=== PATIENT | female | born 1960 | race Caucasian/White ===

== ENCOUNTER 2022-04-23 12:37 | Outpatient (REF) | payer OTHER, SELFPAY ==
[2022-04-27 06:12] LABS: HPV mRNA E6/E7 rflx Not Detected (Not Detected)
== END 2022-04-23 12:38 | disposition home or self-care (01) ==
LOC: HO.LAB 12:37
PROVIDERS: Visit Provider Obstetrics & Gynecology
DX: Z01.419 Encounter for gynecological examination (general) (routine) without abnormal findings (principal); Z11.51 Encounter for screening for human papillomavirus (HPV)
CPT/HCPCS: 87624; 88142

== ENCOUNTER 2023-08-05 11:10 | Outpatient (AMB) | payer OTHER, SELFPAY ==
--- NOTE | 2023-08-05 11:26 | A.OFFVIS_ITS ---
Intake Vital Signs 08/05/23 11:33 Height 5 ft 2 in Weight 270 lb BMI 49.4 BP 130/70 Intake Visit Reasons: Annual/DO NOT RS Commissioned Sales Associate Required: Yes Commissioned Sales Associate Language: [place] Installer Name: Nadya BARCLAY Information Interpreted: non-clinical & clinical Belt Sewer: Belt Sewer Present (Nadya BARCLAY) Accompanied by: Self / Same As Patient Allergies lisinopril Allergy (Unknown, Verified 08/05/23 11:35) Unknown Penicillins [PENICILLINS] Allergy (Unknown, Verified 08/05/23 11:35) RASH,HIVES Penicillin Allergy (Unknown, Uncoded 08/05/23 11:35) Unknown Pt states no food allergies Allergy (Unknown, Uncoded 08/05/23 11:35) Unknown Post menopausal: Yes HPI HPI Comments History of Present Illness Details Presenting for annual exam. No complaints. Last Pap/HPV was negative in 04/29 Last Mammogram was in 05/31 at [place] according to the patient and was negative No previous screening Colonoscopy done [facility] [place] Medical History Tachyarrhythmia Hyperthyroidism Hypercholesteremia Hypertension Diabetes Surgical History Hx of foot surgery Hx of cholecystectomy Family History Father Diabetes Mother Diabetes HTN (hypertension) Household Members: None Housing: Apartment Alcohol intake: never Patient Tobacco Use Status: Never used Tobacco Current occupational status: disabled Sexually active: No Sexual orientation: Straight/Heterosexual Gender identity: Female Female Reproductive History Menstrual Age of Menarche: 12 Menopause type: natural Total pregnancies: 2 Full term: 2 Number of Living Children: 2 Date of last pap smear: 04/24/22 Review of Systems Const All systems reviewed & are unremarkable except as noted in HPI and below Card Reports as per HPI Resp Reports as per HPI GI Reports as per HPI and Reports no additional complaints Reports as per HPI Physical Exam Vital Signs: Last Vital Signs BP 130/70 08/05/23 11:33 BMI result Body Mass Index 49.4 Const General: cooperative, healthy appearing and comfortable Chest Chest palpation & inspection: normal inspection of the chest and normal palpation of entire chest wall Breast/axilla inspection: normal inspection of the breasts and normal inspection of the axillae Breast/axilla palpation: normal palpation of the breasts, normal palpation of the axillae and no axillary lymphadenopathy Resp Effort & Inspection: normal respiratory effort Auscultation: clear to auscultation bilaterally Percussion: percussion normal Cardio Palpation: normal PMI Rate: regular rate Rhythm: regular rhythm Heart sounds: no murmurs and no rubs Peripheral pulses: Peripheral pulses 2+ throughout GI Inspection: Yes normal to inspection Palpation (GI): Soft to palpation, nontender, no guarding, not rigid and No hepatosplenomegaly present Percussion: Yes normal to percussion Auscultation: normal bowel sounds Rectal Exam - Female: deferred General: Yes bladder normal to palpation External Female Exam: No lesion Speculum Exam - Vagina: normal appearance of the vagina, normal palpation, normal vaginal discharge and not erythematous Speculum Exam - Cervix: normal appearance of the cervix and normal palpation Bimanual exam- vagina & uterus: normal bimanual exam, normal palpation, uterine size normal, bladder normal to palpation, consistency normal and normal palpation Bimanual Exam- Adnexa, other: normal adnexae, no masses and no tenderness Assessment & Plan Assessment & Plan (1) Well woman exam: Code(s): Z01.419 - Encounter for gynecological examination (general) (routine) without abnormal findings Plan: Co testing not indicated this year. Counseled the patient about the recommended dietary allowance of 1200 mg of Calcium & 600 IU of vitamin D. Instructions given the patient to schedule next screening Mammogram in 06/01. The patient was referred to GI for screening colonoscopy . The patient was instructed to perform monthly self-breast exams and schedule annual exam in a year. All questions answered and the patient verbalized understanding. Orders: Referrals Gastroenterology Referral Z12.11 - Encounter for screening for malignant neoplasm of colon Coding Level of Care Code Est Pt Prev Care 40-64y(78509) Diagnoses Well woman exam Z01.419
[2023-08-05 11:33] VITALS: BP 130/70; BMI 49.4
== END 2023-08-05 12:16 | disposition home or self-care (01) ==
PROVIDERS: PCP Internal Medicine; Visit Provider Obstetrics & Gynecology
DX: Z01.419 Encounter for gynecological examination (general) (routine) without abnormal findings (principal)
CPT/HCPCS: 99396

== ENCOUNTER → 2023-08-05 11:10 | Outpatient (BNVA) | payer OTHER, SELFPAY | PROVIDERS: Visit Provider Obstetrics & Gynecology ==

== ENCOUNTER 2024-05-30 21:15 | Emergency (ER) | payer OTHER, SELFPAY ==
--- NOTE | 2024-05-30 | ECG_ITS ---
Test Reason : SOB Blood Pressure : / mmHG Vent. Rate : 097 BPM Atrial Rate : 097 BPM P-R Int : 150 ms QRS Dur : 094 ms QT Int : 350 ms P-R-T Axes : 045 -35 080 degrees QTc Int : 444 ms Normal sinus rhythm Left axis deviation Moderate voltage criteria for LVH, may be normal variant ( R in aVL , [place] product ) Abnormal ECG When compared with ECG of 25-NOV-2012 20:28, No significant change was found Referred By: Generic ED Physician Electronically Signed By:PAYAM DEL ANGEL
--- NOTE | ~2024-05-30 | XR_ITS ---
EXAMINATION: XR CHEST CLINICAL INFORMATION: Cough. Shortness of breath. COMPARISON: None available. TECHNIQUE: 2 views of the chest were obtained. FINDINGS: No significant abnormality is noted involving the heart, lungs, mediastinum, or soft tissues. Mild degenerative changes of the spine. XR/XR chest 2V IMPRESSION: Unremarkable examination. Electronically signed by: Porter Mathis MD 05/30/2024 10:32 PM EDT RP
[2024-05-30 21:45] VITALS: BP 163/86; PULSE 101; RESP 18; TEMP 37.3; O2SAT 98; BMI 49.0
[2024-05-30 22:18] LABS: Hematocrit 36.8 % (37.0-47.0); Hemoglobin 12.5 g/dl (12.0-16.0); Mean Corpuscular Hemoglobin 28.9 pg (27.0-33.0); Mean Corpuscular Volume 85.2 fL (80.0-98.0); Mean Platelet Volume 8.7 fL (9.4-12.3); Platelet Count 302 X10*3/uL (160-400); Red Blood Count 4.32 X10*6/uL (4.20-5.50); Red Cell Distribution Width 13.6 % (11.0-16.0)
[2024-05-30 22:30] LABS: Anion Gap 12 (12-20); Blood Urea Nitrogen 17 mg/dL (9-16); Calcium 9.9 mg/dL (8.4-10.2); Carbon Dioxide 25 mmol/L (22-29); Chloride 102 mmol/L (96-108); Creatinine Clr Calc Pharmacy 48.3; Estimated Glomerular Filt Rate 36; Glucose Random 247 mg/dL (60-115); Sodium 135 mmol/L (135-145)
[2024-05-30 22:55] VITALS: BP 167/84; BP 169/86; PULSE 107; PULSE 98
[2024-05-30 22:55] LABS: Influenza A PCR NEGATIVE (Negative); Influenza B PCR NEGATIVE (Negative); Resp Syncy Virus RNA Qual PCR NEGATIVE (Negative); SARS COV2 PCR INHOUSE NEGATIVE (Negative)
[2024-05-30 22:56] VITALS: BP 158/82; PULSE 105
[2024-05-30 22:58] VITALS: BP 169/86; PULSE 100; RESP 18; TEMP 36.7; O2SAT 96
--- NOTE | 2024-05-30 23:11 | ED.DIZZY ---
HPI - Dizziness General Chief Complaint: Dizziness Stated Complaint: dizziness, cold symptoms Time Seen by Provider: 05/30/24 23:08 Source: patient Mode of arrival: ambulatory Limitations: no limitations History of Present Illness ED Provider: misa ALY Narrative: Patient is complaining of vertiginous feeling for last 1 week specially when she moves her head also complaining of sore throat and cough no shortness a breath does have history of diabetes and hypertension and CKD no fever no chills no nausea no vomiting no weakness no tremor Related Data Home Medications ?Medication ?Instructions ?Recorded ?Confirmed aspirin 81 mg chewable tablet 1 tab PO DAILY 04/23/22 atorvastatin 80 mg tablet 80 mg PO DAILY 04/23/22 carvedilol 12.5 mg tablet 12.5 mg PO BID 04/23/22 dulaglutide 4.5 mg/0.5 mL 4.5 mg subcut QWEEK 04/23/22 subcutaneous pen injector (Trulicity) fluticasone propionate 50 2 spray intranasal DAILY 04/23/22 mcg/actuation nasal spray,suspension gabapentin 300 mg capsule 900 mg PO TID 04/23/22 insulin glargine 100 unit/mL (3 unit subcut 04/23/22 mL) subcutaneous pen (Lantus Solostar U-100 Insulin) ipratropium 0.5 mg-albuterol 3 mg 1 ml PO Q8H PRN dyspnea 04/23/22 (2.5 mg base)/3 mL nebulization soln levothyroxine 75 mcg tablet 75 mcg PO DAILY 04/23/22 nitroglycerin 0.4 mg sublingual 0.4 mg sublingual angina 04/23/22 tablet omeprazole 20 mg capsule,delayed 20 mg PO DAILY 04/23/22 release ondansetron HCl 4 mg tablet 4 mg PO Q8H PRN 04/23/22 valsartan 160 1 tab PO DAILY 04/23/22 mg-hydrochlorothiazide 25 mg tablet Previous Rx's ?Medication ?Instructions ?Recorded meclizine 12.5 mg tablet 12.5 mg PO TID PRN dizziness #20 05/31/24 tabs Allergies Allergy/AdvReac Type Severity Reaction Status Date / Time lisinopril Allergy Unknown Cough Verified 05/30/24 21:53 Penicillins [PENICILLINS] Allergy Unknown RASH,HIVES Verified 05/30/24 21:53 Penicillin Allergy Unknown Unknown Uncoded 05/30/24 21:53 Pt states no food allergies Allergy Unknown Unknown Uncoded 05/30/24 21:53 Review of Systems Review of Systems: Yes all other systems are reviewed and are negative [facility] Past Medical History Medical History Tachyarrhythmia Hyperthyroidism Hypercholesteremia Hypertension Diabetes Surgical History Hx of foot surgery Hx of cholecystectomy Family History Family History Father Diabetes Mother Diabetes HTN (hypertension) Social History Social History Household Members: None Housing: Apartment Alcohol intake: never Patient Tobacco Use Status: Never used Tobacco Advance Directives: No Advance Directives Information Provided: No Current occupational status: disabled Sexual orientation: Straight/Heterosexual Gender identity: Female Physical Exam Vital Signs: Vital Signs: Last Vital Signs Temp 98.0 F 05/31/24 01:30 Pulse 92 05/31/24 01:30 Resp 13 05/31/24 01:30 BP 138/71 05/31/24 01:30 Pulse Ox 95 05/31/24 01:30 O2 Del Method Room Air 05/31/24 01:30 BMI result Body Mass Index 49.0 Appearance: Alert. Oriented X3. No acute distress. Eyes: PERRLA, No Nystagmus ENT: Pharynx normal. Oral Mucosa moist Neck: Normal inspection. Neck supple. CVS: Normal heart rate and rhythm. Pulses normal. Respiratory: No respiratory distress. Equal air entry bilateral, no wheezing/rales/rhonchi Abdomen: Soft and nontender. Bowel sounds are present, no mass palpable, no CVA tenderness Skin: Skin warm and dry. Normal skin color. Normal skin turgor. Extremities: No lower extremity edema. No calf tenderness Neuro: Oriented X 3. No motor deficit. No sensory deficit.No cerebellar signs , cranial nerves II-XII intact Medications Administered Discontinued Medications Generic Name Dose Route Start Last Admin Trade Name Freq PRN Reason Stop Dose Admin Meclizine HCl 25 mg 05/30/24 23:56 05/31/24 00:50 Meclizine Hcl 25 Mg Tablet PO 05/30/24 23:57 25 mg ONCE ONE Administration Medical Decision Making Medical Decision Making [facility] Narrative: Patient with benign positional vertigo with no central signs felt better after meclizine will discharge patient home Lab Data [facility] Lab Attestation statement: I reviewed the patient's lab results. 05/30/24 22:12 05/30/24 22:12 Labs: Lab Results 05/30/24 05/31/24 Range/Units 22:12 00:04 WBC 8.0 (4.8-10.8) X10*3/uL RBC 4.32 (4.20-5.50) X10*6/uL Hgb 12.5 (12.0-16.0) g/dl Hct 36.8 L (37.0-47.0) % MCV 85.2 (80.0-98.0) fL MCH 28.9 (27.0-33.0) pg MCHC 34.0 (31.0-35.0) g/dl RDW 13.6 (11.0-16.0) % Plt Count 302 (160-400) X10*3/uL MPV 8.7 L (9.4-12.3) fL Absolute Nucleated RBC 0.000 (0.0-0.012) X10*3/uL Nucleated RBC % (auto) 0.0 (0.0-0.2) /100WBC Sodium 135 (135-145) mmol/L Potassium 4.0 (3.3-5.1) mmol/L Chloride 102 (96-108) mmol/L Carbon Dioxide 25 (22-29) mmol/L Anion Gap 12 (12-20) BUN 17 H (9-16) mg/dL Creatinine 1.48 H (0.5-1.4) mg/dL Estim Creat Clear Calc 48.3 Estimated GFR 36 Random Glucose 247 H (60-115) mg/dL Calcium 9.9 (8.4-10.2) mg/dL Influenza Type A (PCR) NEGATIVE (Negative) Influenza Type B (PCR) NEGATIVE (Negative) RSV RNA Qual (PCR) NEGATIVE (Negative) SARS-CoV-2 RNA (RT-PCR) NEGATIVE (Negative) S. pyogenes GrpA CORA Negative (Negative) Discharge Plan Discharge Clinical Impression: Benign paroxysmal positional vertigo Patient Disposition: Home, Self-Care Instructions: Benign Paroxysmal Positional Vertigo (ED) Additional Instructions: Rest at home, care and cautions as advised Take meclizine 1 tablet every 8 hours as needed for dizziness Follow with your PCP Prescriptions: New meclizine 12.5 mg tablet 12.5 mg PO TID PRN (Reason: dizziness) Qty: 20 0RF No Action insulin glargine [Lantus Solostar U-100 Insulin] 100 unit/mL (3 mL) insulin pen subcut gabapentin 300 mg capsule 900 mg PO TID atorvastatin 80 mg tablet 80 mg PO DAILY valsartan-hydrochlorothiazide 160-25 mg tablet 1 tab PO DAILY Trulicity 4.5 mg/0.5 mL pen injector 4.5 mg subcut QWEEK omeprazole 20 mg capsule,delayed release(DR/EC) 20 mg PO DAILY aspirin 81 mg tablet,chewable 1 tab PO DAILY carvedilol 12.5 mg tablet 12.5 mg PO BID levothyroxine 75 mcg tablet 75 mcg PO DAILY ondansetron HCl 4 mg tablet 4 mg PO Q8H PRN fluticasone propionate 50 mcg/actuation spray,suspension 2 spray intranasal DAILY nitroglycerin 0.4 mg tablet, sublingual 0.4 mg sublingual ipratropium-albuterol 0.5 mg-3 mg(2.5 mg base)/3 mL solution for nebulization 1 ml PO Q8H PRN (Reason: dyspnea) Print Language: Azeri
[2024-05-31 00:23] LABS: IDNOW Serial# 08D9AD1C; Strep A Nucleic Acid Negative (Negative)
[2024-05-31] MEDS: Meclizine HCl 25 MG TABLET PO (00:50)
[2024-05-31 01:30] VITALS: BP 138/71; PULSE 92; RESP 13; TEMP 36.7; O2SAT 95
[2024-05-31 01:45] VITALS: BP 138/71; PULSE 92; RESP 13; TEMP 36.7; O2SAT 95
== END 2024-05-31 01:50 | disposition home or self-care (01) ==
PROVIDERS: Emergency Provider Internal Medicine; PCP Internal Medicine
DX: H81.13 Benign paroxysmal vertigo, bilateral (principal); R05.9 Cough, unspecified; J02.9 Acute pharyngitis, unspecified; R06.02 Shortness of breath; R94.31 Abnormal electrocardiogram [ECG] [EKG]; Z79.899 Other long term (current) drug therapy; Z03.818 Encounter for observation for suspected exposure to other biological agents ruled out
CPT/HCPCS: 0241U; 71046; 80048; 85027; 87651; 93005; 99284; 99285

== ENCOUNTER 2024-12-07 12:27 | Emergency (ER) | payer OTHER, SELFPAY ==
--- NOTE | ~2024-12-07 | XR_ITS ---
EXAMINATION: XR CHEST CLINICAL INFORMATION: sob x 2 weeks only with exertion COMPARISON: 05/30/2024. 09/11/2018. TECHNIQUE: 2 views of the chest were obtained. FINDINGS: The cardiac, hilar, and mediastinal contours are normal. Mild aortic calcification. The lungs are clear bilaterally. There is no pneumothorax or pleural effusion. There is no focal osseous or soft tissue abnormality. Degenerative changes of the spine. XR/XR chest 2V IMPRESSION: No active pulmonary disease. Electronically signed by: Jace Flood MD 12/07/2024 02:43 PM EDT RP
--- NOTE | ~2024-12-07 | US_ITS ---
EXAMINATION: US ABDOMEN COMPLETE CLINICAL INFORMATION: New onset of weight gain. Bloated stomach.. COMPARISON: June 03, 2017. TECHNIQUE: Real-time imaging of the abdominal viscera using grayscale and color Doppler technique. FINDINGS: PANCREAS: No peripancreatic fluid collections. ABDOMINAL AORTA: The proximal, mid, and distal segments are normal in caliber. INFERIOR VENA CAVA: Visualized portions are normal. LIVER: Limited examination. Increased echotexture. No nodular contour. No gross solid or cystic lesion detected by the certified nuclear medicine technologist. No intrahepatic biliary ductal dilatation. GALLBLADDER: Absent/status post cholecystectomy. COMMON BILE DUCT: 4 mm. RIGHT KIDNEY: 11 cm. Normal echotexture. Normal renal cortical thickness. No hydronephrosis. 3.1 cm exophytic anechoic lesion without septations or flow on color Doppler interrogation centered in the midportion. Normal flow on color Doppler interrogation of the renal hilum. LEFT KIDNEY: 9 cm. Normal echotexture. Normal renal cortical thickness. No hydronephrosis. 1.6 cm exophytic anechoic lesion in the upper pole without septations or flow on color Doppler interrogation. Normal flow on color Doppler interrogation of the renal hilum. SPLEEN: 7 cm. No focal lesion.. FREE FLUID: None. US/US abdomen complete IMPRESSION: Limited due to patient's body habitus. Hepatic steatosis. No ascites. Bilateral renal cysts. Electronically signed by: Timi Yao MD 12/08/2024 08:02 AM EDT
[2024-12-07 12:30] VITALS: BP 173/74; PULSE 87; RESP 18; TEMP 36.8; O2SAT 96; BMI 47.9
[2024-12-07 12:32] VITALS: BP 160/90; PULSE 94; O2SAT 95
--- NOTE | 2024-12-07 12:40 | ED.GENADULT ---
HPI - General Adult General Chief complaint: General Medical Stated complaint: ABD PAIN,SOB 94%,DIFF AMB D/T PAIN/WEIGHT PER EMS Time Seen by Provider: 12/07/24 12:40 Source: patient, family, RN notes reviewed and old records reviewed Mode of arrival: ambulatory Limitations: language barrier and physical limitation History of Present Illness ED Provider: Cindy Babin PA-C HPI narrative: Patient presents to urgent care today for evaluation of abdominal bloating. This has been going on for quite some time now but worse over the last 2-3 weeks. According to family she has had a 20 lb weight gain but according to chart records it has only been 3 lb difference in the last 3 weeks. Patient reports always being an obese person but just feels like it is more bloated now around her stomach. She did see her primary care provider yesterday who ordered a hepatitis panel as well as an A1c. Patient has a known history of diabetes type 2 but on insulin. Her blood sugars range anywhere between 100-400. Her primary care provider referred her to an service liaison representative she has not seen her yet but referral just placed yesterday as it does not seem to be well controlled via a PCP education. Patient has also been referred to physical therapy for gait training due to her lower extremity weakness it is also ongoing for quite some time now. This referral occurred yesterday. Patient's primary care provider also ordered an abdominal ultrasound complete however as it was not scheduled yet patient family brought her to the emergency department as they have concerns in office being done for their mom. For the last 2-3 weeks patient has had more difficulty with ambulation for which both patient and her family attributes to her acute weight gain. Even just a few steps patient feels short of breath and her legs hurt too much to continue to walk. Insert breast is not accompanied by any angina or chest tightness or air hunger. She has not experienced any palpitations or feeling like she was going to pass out during that time. She has not noticed any swelling of her lower extremities or upper limbs in any way or her face. She is without any dysuria or urgency but does have urinary frequency at baseline. She reports no abdominal pain. She does not feel nauseous she has not had any vomiting or diarrhea. Last BM yesterday normal. She reports having a poor appetite in regards to not always feeling hungry. No EtOH year for alcohol. She has no rashes or travel anywhere. Headaches dizziness fevers or chills no sore throat or nasal congestion. She denies having any coughing. Due to her body habitus she has a hard time finding comfort and sleep. But lying down this [place] possible due to her stomach pushing on her lungs and making it feel like she can not breathe. She is able to ambulate without assistive devices but family is often around to help her. No falls no trauma. Related Data Home Medications ?Medication ?Instructions ?Recorded ?Confirmed aspirin 81 mg chewable tablet 1 tab PO DAILY 04/23/22 atorvastatin 80 mg tablet 80 mg PO DAILY 04/23/22 carvedilol 12.5 mg tablet 12.5 mg PO BID 04/23/22 dulaglutide 4.5 mg/0.5 mL 4.5 mg subcut QWEEK 04/23/22 subcutaneous pen injector (Trulicity) fluticasone propionate 50 2 spray intranasal DAILY 04/23/22 mcg/actuation nasal spray,suspension gabapentin 300 mg capsule 900 mg PO TID 04/23/22 insulin glargine 100 unit/mL (3 unit subcut 04/23/22 mL) subcutaneous pen (Lantus Solostar U-100 Insulin) ipratropium 0.5 mg-albuterol 3 mg 1 ml PO Q8H PRN dyspnea 04/23/22 (2.5 mg base)/3 mL nebulization soln levothyroxine 75 mcg tablet 75 mcg PO DAILY 04/23/22 nitroglycerin 0.4 mg sublingual 0.4 mg sublingual angina 04/23/22 tablet omeprazole 20 mg capsule,delayed 20 mg PO DAILY 04/23/22 release ondansetron HCl 4 mg tablet 4 mg PO Q8H PRN 04/23/22 valsartan 160 1 tab PO DAILY 04/23/22 mg-hydrochlorothiazide 25 mg tablet Previous Rx's ?Medication ?Instructions ?Recorded meclizine 12.5 mg tablet 12.5 mg PO TID PRN dizziness #20 05/31/24 tabs Allergies Allergy/AdvReac Type Severity Reaction Status Date / Time lisinopril Allergy Unknown Cough Verified 12/07/24 12:40 Penicillins [PENICILLINS] Allergy Unknown RASH,HIVES Verified 12/07/24 12:40 Penicillin Allergy Unknown Unknown Uncoded 12/07/24 12:40 Pt states no food allergies Allergy Unknown Unknown Uncoded 12/07/24 12:40 Review of Systems Review of Systems: Yes all other systems are reviewed and are negative [facility] Past Medical History Attestation statement: The following information was validated with the patient. [facility] Narrative: Rev'd latest PCP note from yesterday- mentioned in HPI. Source: old records reviewed, obtained from family and nursing notes reviewed Medical History Tachyarrhythmia Hyperthyroidism Hypercholesteremia Hypertension Diabetes Surgical History Hx of foot surgery Hx of cholecystectomy Family History Family History Father Diabetes Mother Diabetes HTN (hypertension) Social History Social History Household Members: None Housing: Apartment Alcohol intake: former Patient Tobacco Use Status: Never used Tobacco Smoked in Last 30 Days: No Use of substances other than those prescribed or required for medical reasons: No Advance Directives: No Advance Directives Information Provided: Yes Current occupational status: disabled Sexual orientation: Straight/Heterosexual Gender identity: Female Physical Exam ED Vital Signs: Vital Signs - 24 hr 12/07/24 12:30 12/07/24 14:59 12/07/24 16:19 Temperature 98.2 F 97.3 F 98.0 F Pulse Rate 87 75 76 Respiratory Rate 18 14 18 Blood Pressure 173/74 H 138/71 157/72 H Pulse Oximetry 96 100 99 Oxygen Delivery Method Room Air Room Air Room Air 12/07/24 18:10 Temperature Pulse Rate 86 Respiratory Rate 16 Blood Pressure 118/72 Pulse Oximetry 96 Oxygen Delivery Method Room Air BMI result Body Mass Index 47.9 Const General: cooperative, well developed, alert, awake, Physically active and other (Not ill appearing but abdomen is morbidly obese) Nutritional Appearance: obese Orientation/consciousness: patient oriented x3 Limitations: physical limitations (Body habitus limits patient's ability to tolerate significant activity) HENMT Head: Yes normal to inspection and Yes normocephalic Ears: hearing grossly normal bilaterally Face and sinus: Yes normal facial exam Mouth: Normal oral and palatal mucosa present, lip normal, tongue normal and moist mucous membranes Teeth and gingiva: dentition normal Eyes Alignment and Position: alignment normal Periorbital: periorbital findings normal Eyelids: Yes eyelids normal Conjunctivae: conjunctivae normal Sclerae: sclerae normal Corneas: corneas normal Neck Other: Tonsils surgically absent Neck: Yes normal visual inspection, Yes full ROM and Yes no lymphadenopathy Resp Effort & Inspection: normal respiratory effort and able to speak in complete sentences Auscultation: clear to auscultation bilaterally Cardio Jugular venous distension: no JVD Rate: regular rate Rhythm: regular rhythm Peripheral pulses: Peripheral pulses 2+ throughout GI Other: Morbidly obese abdomen however nontender no fluid shifting or ecchymosis noted Inspection: Yes obesity Auscultation: normal bowel sounds Rectal Exam - Female: deferred General: Yes no CVA tenderness Back/Spine/Pelvis Back: no CVA tenderness Skin Other: Warm and well perfused no jaundice General skin exam: no rashes or lesions noted Neuro General: patient oriented x3 Extrem General: Yes normal to inspection and Yes capillary refill normal Course Reevaluation(s) Reevaluation #1: CP 12/07/24: patient reporting no chest pain or shortness of breath at bedside receives that critical result from the lab her initial troponin is 55.6 will redraw the 3 hour anibal to trend we will repeat EKG and placed on continuous cardiac monitoring. Time: 04:00 Reevaluation #2: CP 12/07/24: Troponin is 55.3 flat not consistent with ischemia. Time: 18:55 Medical Decision Making Medical Decision Making MDM Narrative: 64-year-old female here today for evaluation of abdominal obesity. Just seen by her PCP yesterday she is denying any infectious symptoms and has no pain just concerned about her abdominal swelling. Although family reported 20 lb weight gain in the last 2 weeks due to chart review and with accurate weighing visualized on myself today told even 3 lb. She is well-appearing vitals the evidence for hypoxia or tachycardia. BP mildly elevated but improved without medical intervention after 2nd taking. Afebrile and hydrated. Given her body habitus she is also endorsing shortness of breath with exertion over the last 2 weeks as well cardiac workup was initiated but low clinical concern for ACS PE or myocarditis. Known history of ?kidney problems?. Denying any acute symptoms today urinalysis done and showing some leuks however likely is asymptomatic bacteriuria we will reflex to culture we will not treat today. No CVA tenderness or suprapubic tenderness concerning for pyelonephritis. No leukocytosis. EKG showing incomplete right bundle-branch block with left axis deviation otherwise normal sinus rhythm no ischemia noted. 80bpm. Trending trops and are flat no evidence for acute cardiac ischemia. PCP also ordered outpatient hepatitis panel. Both patient's AST and ALT are normal however her alk-phos mildly elevated at 121 but is still within the normal range for adults. C-reactive protein also mildly elevated at 1.09 nonspecific at this time BNP is normal in the setting of patient's abdominal obesity and shortness of breath and normal chest x-ray acute onset of heart failure can be ruled out. No acute liver failure noted. Slight elevation the patient's BUN however creatinine runs normal and GFR functions actually improved from her last lab in comparison to May no electrolyte imbalance. Recent ultrasound showing slight echogenicity in the right lower lobe she has nonspecific small renal cysts also noted that this would not attribute to the patient's abdominal obesity. This is also not consistent with ascites. This is my impression that this is obesity due to poor diet, potential other food intolerances. Differential Diagnosis Differential Diagnoses: The differential diagnosis associated with the presentation includes See [facility] Admission/Observation Consideration of admission/observation: Escalation of care including admission/observation considered Patient would have been admitted to the hospital had her troponins continued to climb her EKG showed acute ischemia and if her ultrasound imaging showed any life-threatening condition or her labs demonstrated metabolic dysfunction or leukocytosis for further warranting of workup. Clinical presentation did not warrant hospital admission at this time Lab Data [facility] Lab Attestation statement: I reviewed the patient's lab results. 12/07/24 15:19 12/07/24 15:19 Labs: Lab Results 12/07/24 12/07/24 12/07/24 Range/Units 12:53 15:19 18:09 WBC 10.5 (4.8-10.8) X10*3/uL RBC 4.24 (4.20-5.50) X10*6/uL Hgb 12.3 (12.0-16.0) g/dl Hct 36.4 L (37.0-47.0) % MCV 85.8 (80.0-98.0) fL MCH 29.0 (27.0-33.0) pg MCHC 33.8 (31.0-35.0) g/dl RDW 14.6 (11.0-16.0) % Plt Count 335 (160-400) X10*3/uL MPV 8.6 L (9.4-12.3) fL Immature Gran % (Auto) 0.7 H (0.0-0.4) % Neut % (Auto) 65.4 (45-73) % Lymph % (Auto) 25.3 (20-40) % Bonner % (Auto) 6.5 (2-11) % Eos % (Auto) 1.6 (0-4) % Baso % (Auto) 0.5 (0-2) % Lymph # (Auto) 2.7 (1.2-4.9) X10*3/uL Bonner # (Auto) 0.7 (0.1-1.2) X10*3/uL Eos # (Auto) 0.2 (0.0-0.4) X10*3/uL Baso # (Auto) 0.1 (0.0-0.2) X10*3/uL Abs Immat Gran (auto) 0.07 H (0.00-0.03) X10*3/uL Absolute Neuts (auto) 6.9 (2.0-8.3) x10*3/uL Absolute Nucleated RBC 0.000 (0.0-0.012) X10*3/uL Nucleated RBC % (auto) 0.0 (0.0-0.2) /100WBC Sodium 138 (135-145) mmol/L Potassium 3.8 (3.3-5.1) mmol/L Chloride 105 (96-108) mmol/L Carbon Dioxide 26 (22-29) mmol/L Anion Gap 11 L (12-20) BUN 22 H (9-16) mg/dL Creatinine 1.06 (0.5-1.4) mg/dL Estim Creat Clear Calc 65.6 Estimated GFR 52 Random Glucose 156 H (60-115) mg/dL Calcium 10.0 (8.4-10.2) mg/dL Total Bilirubin 0.5 (0.0-1.0) mg/dL AST 30 (5-31) U/L ALT 26 (0-31) U/L Alkaline Phosphatase 121 H (39-117) U/L Troponin I High Sens 55.6 H* 55.3 H* (<3.5-17.0) ng/L C-Reactive Protein 1.09 H (< or = 0.50) mg/dL C-React Prot High Sens Cancelled B-Natriuretic Peptide < 10 (<100) pg/mL Total Protein 8.0 (6.5-8.0) g/dL Albumin 4.1 (3.5-5.0) g/dL Lipase 21 (8-78) U/L Hold Yellow Top See Note Urine Color Yellow Urine Appearance Clear Urine pH 6.0 (5.0-9.0) Ur Specific [place] 1.010 (1.005-1.025) Urine Protein Trace (Neg-Trace) mg/dL Urine Glucose (UA) Negative (Negative) mg/dL Urine Ketones Negative (Negative) mg/dL Urine Blood Negative (Negative) Urine Nitrite Negative (Negative) Ur Leukocyte Esterase Moderate (2+) H (Negative) Urine RBC 0-2 (0-2) /HPF Urine WBC 21-50 H (0-5) /HPF Ur Squamous Epith Cells 6-10 (0-2) /HPF Urine Bacteria Trace (None Seen) Hyaline Casts 0-2 (0-2) /LPF Independent Interpretation I performed an independent interpretation of an: EKG, Rhythm Strip, Plain X-Ray and Ultrasound Interpretation: EKG without significant ischemia findings. Initial trop mildly elevated at 55.6 will trend patient is still asymptomatic. Chest x-ray shows no evidence of acute cardiopulmonary pathology pulses are equal and symmetric no widened mediastinum most concerning for aortic dissection no dizziness or lightheadedness. Ultrasound of the abdomen showing increased echogenicity in the right lower lobe gallbladder is absent once it is noted on each kidney. Radiology Impression Discussion of test interpretation with radiology: I have reviewed the radiologist's reading. Radiologist Impression: Chest x-ray normal. Ultrasound shows echogenicity in the right lower lobe of 13.7 cm no gallbladder is present patient has small right-sided and left-sided renal cyst Independent Historian Clinical information obtained from an independent historian. History obtained from or confirmed by: Spouse and Other (Daughter and niece) External Record Review External record reviewed: Outpatient record Patient's PCP note from yesterday for which she brought with her was reviewed-she is referred to gait therapy as well as outpatient complete abdominal ultrasound and to endocrinology for better diabetes control Tests considered The following testing was considered but not selected: Considered CT imaging of abdomen however patient has declined this. Considered D-dimer however in setting of patient not being hypoxic or tachycardic at rest less concerning and therefore deferred today Prescription Management No pain reported and no current infection to warrant any pain medication or oral antibiotic Chronic Conditions Patient?s care impacted by: Diabetes and Hypertension Discharge Plan Discharge Clinical Impression: Abdominal obesity, Exertional shortness of breath Patient Disposition: Home, Self-Care Additional Instructions: You were seen in the emergency department today over concerns of abdominal obesity. They have already been referred to service liaison representative by her PCP as well as physical therapy for strengthening of the lower extremities. We did a ultrasound of her abdomen today that does not show any obvious free fluid of the abdomen and your labs did not demonstrate any acute infectious etiology or cardiac ischemia. There is no evidence of liver dysfunction today for new onset of kidney failure. No anemia is noted either. Overall reassuring. Please be sure to call Physical therapy tomorrow as well as the service liaison representative office to facilitate your follow-up care along with your primary care provider as always if you develop any new or concerning symptoms please return immediately to the emergency department or dial 911. Thank you for allowing me to care for you today. Prescriptions: No Action meclizine 12.5 mg tablet 12.5 mg PO TID PRN (Reason: dizziness) Qty: 20 0RF insulin glargine [Lantus Solostar U-100 Insulin] 100 unit/mL (3 mL) insulin pen subcut gabapentin 300 mg capsule 900 mg PO TID atorvastatin 80 mg tablet 80 mg PO DAILY valsartan-hydrochlorothiazide 160-25 mg tablet 1 tab PO DAILY Trulicity 4.5 mg/0.5 mL pen injector 4.5 mg subcut QWEEK omeprazole 20 mg capsule,delayed release(DR/EC) 20 mg PO DAILY aspirin 81 mg tablet,chewable 1 tab PO DAILY carvedilol 12.5 mg tablet 12.5 mg PO BID levothyroxine 75 mcg tablet 75 mcg PO DAILY ondansetron HCl 4 mg tablet 4 mg PO Q8H PRN fluticasone propionate 50 mcg/actuation spray,suspension 2 spray intranasal DAILY nitroglycerin 0.4 mg tablet, sublingual 0.4 mg sublingual ipratropium-albuterol 0.5 mg-3 mg(2.5 mg base)/3 mL solution for nebulization 1 ml PO Q8H PRN (Reason: dyspnea) Referrals: Maykel Worley III, MD [Primary Care Provider] - 1 week Print Language: [place]ian
[2024-12-07 13:01] LABS: Appearance Urine Clear; Color Urine Yellow; Glucose Urine UA Negative (Negative); Leukocyte Esterase Urine Moderate (2+) (Negative); Nitrite Urine Negative (Negative); UMIC TRIGGER UACC YES; Urine Blood Negative (Negative); Urine Ketones Negative (Negative); Urine Protein Trace mg/dL (Neg-Trace)
[2024-12-07 13:06] LABS: Bacteria Urine Trace (None Seen); Hyaline Casts Urine 0-2 /LPF (0-2); RBC Urine 0-2 /HPF (0-2); UACC Culture Trigger YES; WBC Urine 21-50 /HPF (0-5)
--- NOTE | 2024-12-07 14:17 | ECG_ITS ---
Test Reason : sob Blood Pressure : */* mmHG Vent. Rate : 80 BPM Atrial Rate : 80 BPM P-R Int : 138 ms QRS Dur : 94 ms QT Int : 382 ms P-R-T Axes : 32 -34 68 degrees QTcB Int : 440 ms Normal sinus rhythm Left axis deviation Incomplete right bundle branch block Moderate voltage criteria for LVH, may be normal variant ( R in aVL , Miky product ) Septal infarct , age undetermined Abnormal ECG When compared with ECG of 30-May-2024 21:58, No significant changes seen Referred By: Cindy Babin Electronically Signed By: NAY ROBBINS
[2024-12-07 14:59] VITALS: BP 138/71; PULSE 75; RESP 14; TEMP 36.3; O2SAT 100
[2024-12-07 15:23] LABS: MANUAL DIFF FLAG NO
[2024-12-07 15:36] LABS: Basophils Absolute Auto 0.1 X10*3/uL (0.0-0.2); Basophils Percent Auto 0.5 % (0-2); Eosinophils Absolute Auto 0.2 X10*3/uL (0.0-0.4); Eosinophils Percent Auto 1.6 % (0-4); Hematocrit 36.4 % (37.0-47.0); Hemoglobin 12.3 g/dl (12.0-16.0); Imm Gran Abs Auto 0.07 X10*3/uL (0.00-0.03); Imm Gran Pct Auto 0.7 % (0.0-0.4); Lymphocytes Absolute Auto 2.7 X10*3/uL (1.2-4.9); Lymphocytes Percent Auto 25.3 % (20-40); Mean Corpuscular HGB Conc 33.8 g/dl (31.0-35.0); Mean Corpuscular Volume 85.8 fL (80.0-98.0); Mean Platelet Volume 8.6 fL (9.4-12.3); Monocytes Absolute Auto 0.7 X10*3/uL (0.1-1.2); Monocytes Percent Auto 6.5 % (2-11); Neutrophils Absolute Auto 6.9 x10*3/uL (2.0-8.3); Neutrophils Percent Auto 65.4 % (45-73); Platelet Count 335 X10*3/uL (160-400); Red Blood Count 4.24 X10*6/uL (4.20-5.50); Red Cell Distribution Width 14.6 % (11.0-16.0); White Blood Count 10.5 X10*3/uL (4.8-10.8)
[2024-12-07 15:55] LABS: B Type Natriuretic Peptide < 10 pg/mL (<100)
[2024-12-07 16:01] LABS: Alanine Aminotransferase 26 U/L (0-31); Albumin Level 4.1 g/dL (3.5-5.0); Alkaline Phosphatase 121 U/L (39-117); Anion Gap 11 (12-20); Aspartate Amino Transferase 30 U/L (5-31); Bilirubin Total 0.5 mg/dL (0.0-1.0); Blood Urea Nitrogen 22 mg/dL (9-16); C Reactive Protein 1.09 mg/dL (< or = 0.50); Carbon Dioxide 26 mmol/L (22-29); Chloride 105 mmol/L (96-108); Creatinine Clr Calc Pharmacy 65.6; Estimated Glomerular Filt Rate 52; Glucose Random 156 mg/dL (60-115); Lipase 21 U/L (8-78); Potassium 3.8 mmol/L (3.3-5.1); Sodium 138 mmol/L (135-145); Troponin-I High Sensitivity 55.6 ng/L (<3.5-17.0)
[2024-12-07 16:19] VITALS: BP 157/72; PULSE 76; RESP 18; TEMP 36.7; O2SAT 99
--- OUTSIDE RECORDS SUMMARY | 2024-12-07 16:25 | XMS_ITS | Clinical Summary ---
Author Organization [facility] Address [address] [place], [place] [address]y DANIELITO Steward [phone] Phone Care Team Providers Care Web Application Dev Specialist Name Role Phone Maykel Worley MD Primary Care Provider [phone] Allergies Active Allergy Reactions Criticality Noted Date Comments Lisinopril 06/18/2007 cough Penicillins 01/21/2013 Medications nitroglycerin (NITROSTAT) 0.[address] 1 Tablet under the tongue every 5 minutes as needed for Chest pain. 4 Active capsaicin (Arthritis Pain Relief,capsaic,) 0.075 % cream APPLY A THIN FILM TO AFFECTED AREA(S) THREE TIMES A DAY FOR 2 WEEKS 4 Active carvediloL (COREG) 12.5 mg tablet Take 1 Tablet by mouth 2 Times Daily. 4 Active valsartan-hydroCHL OROthiazide (DIOVAN-HCT) 160-25 mg per tablet Take 1 Tablet by mouth daily. 4 Active atorvastatin (LIPITOR) 80 mg tablet Take 1 Tablet by mouth at bedtime. 4 Active levothyroxine (SYNTHROID, LEVOTHROID) 75 mcg tablet Take 1 Tablet by mouth daily. 4 Active fluticasone propionate (FLONASE) 50 mcg/actuation nasal spray 1 [place] by Each Nare route daily for 360 days. 4 01/29/20 25 Active lidocaine (ZTlido) 1.8 % adhesive patch,medicated Apply 1 Patch topically daily as needed (pain). Apply for no more than 12 hours in a 24 hour period. 4 Active flash glucose scanning reader (FreeStyle Jennifer 2 [place]) [facility] [place] 1 Device by Does not apply route continuous. 4 Active blood sugar diagnostic (FreeStyle Lite Strips) test strip Use to test blood sugar four times daily 3 Active fluticasone propionate (FLONASE) 50 mcg/actuation nasal spray 2 sprays each nostril once a day for 10 days. 2 Active FREESTYLE LANCETS MISC Test QID 2 Active ipratropium-albute roL (DUONEB) 0.5-2.5 mg/3 mL nebulizer solution Take 1 mL by mouth every 8 hours as needed (SOB). 2 Active traZODone (DESYREL) 50 mg tablet TAKE ONE TABLET BY MOUTH DAILY AT BEDTIME 90 tablet 1 4 Active omeprazole (PriLOSEC) [address] capsule TAKE ONE CAPSULE BY MOUTH EVERY DAY 90 capsule 1 4 Active cholecalciferol (VITAMIN D-3) 50 mcg (2,000 unit) capsule TAKE ONE CAPSULE BY MOUTH EVERY DAY 90 capsule 1 4 Active Unifine Pentips Plus 31 gauge x 5/16 needle USE TO INJECT INSULIN 5 TIMES DAILY 500 each 1 4 Active aspirin 81 mg chewable tablet CHEW AND SWALLOW ONE TABLET BY MOUTH EVERY DAY 90 tablet 1 4 Active hydrOXYzine HCL (ATARAX) 25 mg tablet Take 1 tablet (25 mg total) by mouth every 8 (eight) hours if needed for anxiety. for anxiety 30 tablet 5 4 Active tirzepatide (Mounjaro) 5 mg/0.5 mL injectionIndicatio ns:Diabetes mellitus type 2 with neurological manifestations (CMS/HCC) Inject 0.5 mL (5 mg total) under the skin every 7 (seven) days. 6 mL 1 5 Active insulin glargine U-300 conc (Toujeo Max U-300 SoloStar) 300 unit/mL (3 mL) CONCENTRATED injection pen See Admin Instructions. Inject 120 units in AM and 90 units in PM 180 mL 1 5 Active flash glucose sensor (FreeStyle Jennifer 2 Sensor) kitIndications:Kenzie bruna mellitus type 2 with neurological manifestations (CMS/HCC) Change every 14 days. 6 each 1 5 Active insulin lispro (HumaLOG KwikPen) 100 unit/mL injection pen INJECT 35 TO 45 UNITS UNDER THE SKIN THREE TIMES DAILY BEFORE MEALS DIRECTED 135 mL 1 5 Active DULoxetine (CYMBALTA) [address] capsule Take 1 capsule (30 mg total) by mouth 1 (one) time each day. Do not crush or chew. 30 capsule 5 Active pregabalin (LYRICA) 150 mg capsule Take 1 capsule (150 mg total) by mouth 2 (two) times a day. Max Daily Amount: 300 mg 60 each 5 5 06/04/20 25 Active Active Problems Problem Noted Date Diagnosed Date Arthritis of knee 11/12/2024 CKD (chronic kidney disease) stage 3, GFR 30-59 ml/min 06/15/2022 Lumbar disc disease 04/26/2019 Essential hypertension 12/16/2016 Eczema 05/12/2014 Coronary artery disease invo lving [place] heart with angina pectoris 04/18/2014 Overview (06/17/2024): LHC (05/22)-70%LPDA and 60% LAD-minor progression from 2008, but not suitable for intervention. Vitamin B12 deficiency 10/21/2013 Vitamin D deficiency 10/21/2013 Diabetes mellitus type 2 with neurological manif estations 05/18/2013 Overview (06/17/2024): Peripheral neuropathy (per office note, 04/30/12) and CTS Microalbuminuria 05/18/2013 Type 2 diabetes mellitus with eye manifestations 05/18/2013 Overview (06/17/2024): Retinopathy per [facility] records Type II diabetes mellitus with renal manifestati ons 05/18/2013 Overview (06/17/2024): Stage III CKD & microalbuminuria Venous insufficiency 05/25/2010 Anemia 10/21/2008 Carpal tunnel syndrome 06/21/2008 GERD (gastroesophageal reflux disease) 8 Anxiety 11/19/2007 Depression 10/29/2007 Ankle pain 09/30/2007 Overview (06/17/2024): H/o ORIF, after R ankle farcuture on 1989. Patient has recurrent pain with difficuties ambulating Insomnia 09/30/2007 Morbid obesity with BMI of 45.0-49.9, adult 06/08 Asthma 06/10/2007 Hyperlipidemia 06/10/2007 Hypothyroidism 06/10/2007 Encounters Date Type Department Care Team Description 12/06/2024 11:00 AM EDT Office Visit Adult [address] [phone] Maykel Worley MD Type 2 diabetes mellitus with other diabetic kidney complication, with long-term current use of insulin ([facility]) (Primary Dx); Frequent falls; Distended abdomen; Stage 3b chronic kidney disease ([facility]); Lumbar disc disease; Weakness of right foot; Other back pain, unspecified chronicity; Arthritis of both knees; Essential hypertension 12/06/2024 Telephone Adult Medicine [address] [phone] Maykel Worley MD Referral (Endo) 11/24/2024 Telephone Adult [address] [phone] Maykel Worley MD Xray Results 11/23/[address] [phone] Adelaide Perez MD prior authorization 11/23/2024 Telephone Adult Medicine [address] [phone] Maykel Worley MD Results 11/19/2024 Telephone Adult Medicine [address] [phone] Shayy Sam LPN Fitting for DME (Faxed form from [facility]) 11/11/2024 Telephone Adult [address] [phone] Shayy Sam LPN Fitting for DME 11/09/2024 1:53 PM EST - 11/09/2024 11:59 PM EST Hospital Encounter [address] [phone] Other back pain, unspecified chronicity; Fall from slip, trip, or stumble, initial encounter Discharge Disposition: Home or Self Care 11/09/2024 1:53 PM EST - 11/09/2024 11:59 PM EST Hospital Encounter [address] [phone] Other back pain, unspecified chronicity; Fall from slip, trip, or stumble, initial encounter Discharge Disposition: Home or Self Care 11/09/2024 1:52 PM EST - 11/09/2024 11:59 PM EST Hospital Encounter [address] [phone] Acute right ankle pain Discharge Disposition: Home or Self Care 11/09/2024 1:52 PM EST - 11/09/2024 11:59 PM EST Hospital Encounter [address] [phone] Knee pain, unspecified chronicity, unspecified laterality; Fall from slip, trip, or stumble, initial encounter Discharge Disposition: Home or Self Care 11/09/2024 1:30 PM EST Office Visit Adult Medicine [address] [phone] Zunilda Khan PA Weakness of right foot (Primary Dx); Fall from slip, trip, or stumble, initial encounter; Knee pain, unspecified chronicity, unspecified laterality; Other back pain, unspecified chronicity; Lumbar disc disease; Diabetes mellitus type 2 with neurological manifestations (CMS/HCC); Stage 3b chronic kidney disease (CMS/HCC) 10/29/[address] [phone] Adelaide Perez MD PRIOR AUTHORIZATION 10/27/[address] [phone] Adelaide Perez MD PRIOR AUTHORIZATION 10/26/2024 1:00 PM EST Office Visit [address] [phone] Adelaide Perez MD Diabetes mellitus type 2 with neurological manifestations (CMS/HCC) (Primary Dx) 09/10/[address] [phone] Adelaide Perez MD Med Refill 09/09/2024 Nurse Triage Adult Medicine [address] [phone] Maykel Worley MD Nausea; Vomiting; Headache; Abdominal Pain; bodyaches from Last 3 Months Immunizations Name Administration Dates Next Due H1N1 Inj Preservative Free 08/11/2009 Influenza Quadravalent, MDCK , 0.5ml, preservative free (Flucelvax) 6mo and older 06/14/2022,06/30/2020,08/12/2019 Influenza Quadravalent, MDCK , 0.5ml, with preservative (Flucelvax) 6mo and older 06/12/2018,07/11/2017 Influenza trivalent, 0.5mL, preservative free (Fluarix; FluLaval; Fluzone) ages 6mo and older (Afluria) 3 years and older 08/08/2016,08/02/2014,05/19/2013,07/08,05/25/2010,05/29/2009,05/24/2008 ,06/18/2007 ZinMobi SARS-CoV-2 COVID-19, mRNA, LNP-S, preservative free 12/30/2020 Pneumococcal polysaccharide 23 valent (Pneumovax 23) 2yo and older 06/29/2007 Td Tetanus diptheria (Tdvax) 7yo and older 08/12/2019 Tdap Tetanus diptheria acell ular pertussis (Boostrix; Adacel) 7yo and older 11/19/2007 Surgical History Surgery Date Site/Laterality Comments CHOLECYSTECTOMY PROCEDURE: OR LAPAROSCOPY SURG CHOLECYSTECTOMY OTHER SURGICAL HISTORY PROCEDURE: ---- OTHER ----; COMMENT: orif of right ankle Medical History Medical History Date Comments Unspecified hypothyroidism DX:Un specified hypothyroidism Other and unspecified hyperlipidemia DX:Other and unspecified hyperlipidemia Unspecified asthma(493.90) DX:Un specified asthma(493.90) Type II or unspecified type diabetes mellitus with unspecified complication, not stated as uncontrolled DX:Type II or unspecified ty pe diabetes mellitus with unspecified complication, not stated as uncontrolled Anxiety state, unspecified DX:An xiety state, unspecified Essential hypertension, benign 06/18/2007 D X:Essential hypertension, benign Morbid obesity ([facility]/HCC) 06/18/2007 DX:Morb id obesity (HCC) Heart disease, unspecified 06/10/2007 DX:He art disease, unspecified Anemia 10/21/08 DX:Anemia DM (diabetes mellitus), type 2, uncontrolled, with renal complications 05/18/2013 DX:DM (diabetes mellitus), t ype 2, uncontrolled, with renal complications Hyperlipidemia 06/10/2007 DX:Hyperlipidemi a Diabetes mellitus type 2 wit h neurological manifestations ([facility]/HCC) 05/18/2013 DX:Diabetes lisa itus type 2 with neurological manifestations ([facility]); COMMENT: PMH of carpal tunnel and neuropathy. Type 2 diabetes mellitus wit h eye manifestations ([facility]) 05/18/2013 DX:Type 2 diabetes mellitus with eye manifestations ([facility]) Family History Medical History Relation Name Comments Other cancer Father stomach Other cancer Mother cervical or end ometrial Breast cancer Neg Hx Relation Name Status Comments Daughter 1 Alive Daughter 2 Alive DM, had brain s urgery Father DM Mother Alive DM, CAD, lung c ancer Sister 1 Alive HTN Sister 2 tragedy Social History Tobacco Use Types Packs/Day Years Used Date Smoking Tobacco: Never Smokeless Tobacco: Never Tobacco Cessation:Counseling Given: Not Answered Alcohol Use Standard Drinks/Week Comments No 0 (1 standard drink = 0.6 oz pur e alcohol) Comments No Sex and Gender Information Value Date Recorded Sex Assigned at Not on file Legal Sex Female 4:18 AM EST Gender Identity Not on file Sexual Orientation Not on file Obstetrics History Last Filed Vital Signs Vital Sign Reading Time Taken Comments Blood Pressure 140/76 12/06/2024 11:15 AM EDT Pulse 80 12/06/2024 11:15 AM EDT Temperature 36.8 ??C (98.2 ??F) 12/06/2024 11:15 AM E DT Respiratory Rate 12 12/06/2024 11:15 AM EDT Oxygen Saturation 95% 12/06/2024 11:15 AM EDT Inhaled Oxygen Concentration - - Weight 116 kg (256 lb) 11/09/2024 1:07 PM EST Height 157.5 cm (5' 2 ) 12/06/2024 11:15 AM EDT Body Mass Index 46.82 11/09/2024 1:07 PM EST Plan of Treatment Upcoming Encounters Date Type Department Care Team (Late st Contact Info) Description 12/16/2024 2:30 PM EDT Office Visit Nephrology - [address] [phone] Prabhu Pugh MD [address] [phone] 12/21/2024 10:45 AM EDT Appointment Radiology Department - [address] [phone] 02/15/2025 4:30 PM EDT Appointment [facility] Neurodiagnostic [address] [place] [phone] 04/06/2025 11:20 AM EDT Appointment Radiology Department - [address] [phone] 04/07/2025 11:00 AM EDT Office Visit Adult Medicine [address] [phone] Nicki Landis PA [address] [place] [address] 06/17/2025 11:30 AM EDT Office Visit Adult Medicine [address] [phone] Maykel Worley MD [address] [place] [phone] Health Maintenance Due Date Last Done Comments Diabetes: Annual Foot Exam 1970 Pneumococcal Vaccine: 50+ Years (2 of 2 - PCV) 06/29/2008 06/29/2007 Pneumococcal Vaccine: Pediatrics (0 to 5 Years) and At-Risk Patients (6 to 64 Years) (2 of 2 - PCV) 06/29/2008 06/29/2007 Zoster Vaccines (1 of 2) 2010 Cervical Cancer Screening: Pap Smear 03/03/2018 03/03/2015, 03/03/2015 RSV Immunization Patients 60+ Years Old (1 - Risk 60-74 years 1-dose series) 2020 Colorectal Cancer Screening: Colonoscopy 08/17/2022 HIV Screening 08/17/2022 Social Influencers of Health Screening 08/17/2022 COVID-19 Vaccine ( season) 2024 05/06/2022, 01/20/2021, 12/30/2020 Depression Screening 01/06/2025 01/07/2024 Influenza Vaccine (Season Ended) 2025 06/14/2022, 06/30/2020, 08/12/2019, Additional history exists Diabetes: Blood Sugar Control Test (HGBA1C) 06/07/2025 12/06/2024, 08/10/2024, 01/13/2024, Additional history exists Diabetes: Annual Retina Eye Exam 06/15/2025 06/15/2024 Diabetes: Annual GFR (Glomerular Filtration Rate) 08/10/2025 08/10/2024, 04/05/2024, 04/05/2024, Additional history exists Hypertension/CHF/CAD Annual BMP Blood Test 08/10/2025 08/10/2024, 04/05/2024, 04/05/2024, Additional history exists Diabetes: Annual Urine Albumin-Creatinine Ratio (uACR) 12/06/2025 12/06/2024, 01/13/2024 Breast Cancer Screening 03/30/2026 03/30/20 24, 03/30/2024, 03/20/2023, Additional history exists Cholesterol Screening (Lipid Panel) 08/10/2029 08/10/2024, 04/05/2024, 04/05/2024 DTaP,Tdap,and Td Vaccines (3 - Td or Tdap) 08/12/2029 08/12/2019, 11/19/2007 Hepatitis C Screening Completed 02/01/2014 HIB Vaccines Aged Out No longer eligi ble based on patient's age to complete this topic HPV Vaccines Aged Out No longer eligi ble based on patient's age to complete this topic Hepatitis A Vaccines Aged Out No long er eligible based on patient's age to complete this topic Hepatitis B Vaccines Aged Out No long er eligible based on patient's age to complete this topic IPV Vaccines Aged Out No longer eligi ble based on patient's age to complete this topic MMR Vaccines Aged Out No longer eligi ble based on patient's age to complete this topic Meningococcal ACWY Vaccine Aged Out N o longer eligible based on patient's age to complete this topic Meningococcal B Vacine Aged Out No lo nger eligible based on patient's age to complete this topic RSV Immunization Patients Under 20 months Aged Out No longer eligible based on patient's age to complete this topic Varicella Vaccines Aged Out No longer eligible based on patient's age to complete this topic Procedures Procedure Name Priority Date/Time Associated Diagnosis Comments MICROALBUMIN CREATININE URINE RATIO Routine 12/06/2024 12:10 PM EDT Type 2 diabetes mellitus with chronic kidney disease, with long-term current use of insulin, unspecified CKD stage ([facility]) HEMOGLOBIN A1C Routine 12/06/2024 12:10 PM EDT Type 2 diabetes mellitus with other diabetic kidney complication, with long-term current use of insulin ([facility]) HEPATIC FUNCTION PANEL Routine 12/06/2024 12:10 PM EDT Type 2 diabetes mellitus with other diabetic kidney complication, with long-term current use of insulin ([facility]) XR THORACIC SPINE 2 VIEWS Routine 11/09/2024 2:21 PM EST Other back pain, unspecified chronicity Fall from slip, trip, or stumble, initial encounter XR LUMBAR SPINE 4+ VIEWS Routine 11/09/2024 2:21 PM EST Other back pain, unspecified chronicity Fall from slip, trip, or stumble, initial encounter XR ANKLE 3+ VIEWS RIGHT Routine 11/09/2024 2:21 PM EST Acute right ankle pain XR KNEE 4+ VIEWS BILAT Routine 11/09/2024 2:19 PM EST Knee pain, unspecified chronicity, unspecified laterality Fall from slip, trip, or stumble, initial encounter COMPREHENSIVE METABOLIC PANEL Routine 08/10/2024 2:34 PM EST Type 2 diabetes mellitus with chronic kidney disease, with long-term current use of insulin, unspecified CKD stage (CMS/HCC) Stage 3 chronic kidney disease, unspecified whether stage 3a or 3b CKD (CMS/HCC) Essential hypertension Encounter for long-term (current) use of medications LIPID PANEL WITH REFLEX TO DIRECT LDL Routine 08/10/2024 2:34 PM EST Hyperlipidemia, unspecified hyperlipidemia type DIABETES EYE EXAM Routine 06/15/2024 SCREENING MAMMOGRAPHY BI 2-VIEW BREAST INC CAD Routine 03/30/2024 11:36 AM EDT Encounter for other screening for malignant neoplasm of breast DEPRESSION SCREENING Routine 01/07/2024 HPV Routine 03/03/2015 HEPATITIS C SCREENING Routine 02/01/2014 from Last 3 Months or Most Recently Relevant to Health Maintenance Results * (ABNORMAL) Microalbumin creatinine urine ratio (12/06/2024 12:10 PM EDT) Creatinine, Urine 44.0 mg/dL LAB CHEMISTRY METHOD 12/06/2024 5:09 PM EDT [facility] Microalb, Ur 29.7(H) 0.0 - 29.0 mg/L LAB CHEMISTRY METHOD 12/06/2024 5:09 PM EDT [facility] Microalb/Crea t Ratio 68(H) <30 mg/g creat LAB CHEMISTRY METHOD 12/06/2024 5:09 PM EDT [facility] Urine Urine specimen obtained by clean catch procedure / Unknown Non-blood Collection / Unknown 12/06/2024 12:10 PM EDT 12/06/2024 12:10 PM EDT us Maykel Worley MD LAB URINE ORDERABLES Final Resu lt Performing Organization Address [facility]/ZIP Co de Phone Number [facility] [address] [place] [address], [place] [phone] * (ABNORMAL) Hemoglobin A1c (12/06/2024 12:10 PM EDT) Hemoglobin A1C 7.5(H) <6.5 % LAB CHEMISTRY METHOD 12/06/2024 9:28 PM EDT [facility] Mean Bld Glu Estim. 169 mg/dL LAB CHEMISTRY METHOD 12/06/2024 9:28 PM EDT [facility] Blood Venous blood specimen / Unknown Venipuncture / Unknown 12/06/2024 12:10 PM EDT 12/06/2024 12:10 PM EDT us Maykel Worley MD LAB BLOOD ORDERABLES Final Resu lt Performing Organization Address [facility]/ZIP Co de Phone Number [facility] [address] [place] [address], [place] [phone] * (ABNORMAL) Hepatic function panel (12/06/2024 12:10 PM EDT) Total Protein 7.9 6.0 - 8.0 g/dL LAB CHEMISTRY METHOD 12/06/2024 3:34 PM EDT [facility] Albumin 3.6 3.2 - 5.0 g/dL LAB CHEMISTRY METHOD 12/06/2024 3:34 PM EDT [facility] Total Bilirubin 0.3 0.0 - 1.4 mg/dL LAB CHEMISTRY METHOD 12/06/2024 3:34 PM EDT [facility] Bilirubin, Direct <0.1 0.0 - 0.3 mg/dL LAB CHEMISTRY METHOD 12/06/2024 3:34 PM EDT [facility] Bilirubin, Indirect LAB CHEMISTRY METHOD 12/06/2024 3:34 PM EDT [facility] Comment:Unable to calculate Indirect Bilirubin. ALT (SGPT) 33 10 - 60 unit/L LAB CHEMISTRY METHOD 12/06/2024 3:34 PM EDT [facility] AST (SGOT) 21 10 - 42 unit/L LAB CHEMISTRY METHOD 12/06/2024 3:34 PM EDT [facility] Alkaline Phosphatase 144(H) 42 - 121 unit/L LAB CHEMISTRY METHOD 12/06/2024 3:34 PM EDT [facility] Blood Venous blood specimen / Unknown Venipuncture / Unknown 12/06/2024 12:10 PM EDT 12/06/2024 12:10 PM EDT us Maykel Worley MD LAB BLOOD ORDERABLES Final Resu lt [facility] [address] [place] [address], * XR Thoracic Spine 2 Views (11/09/2024 2:21 PM EST) Anatomical Region Laterality Modality Spine, T-spine Radiographic Carol ging 11/09/2024 3:01 PM EST Narrative 11/09/2024 3:02 PM EST Thoracic spine, 2 views. History mid back pain. No prior studies are available for comparison. Vertebral bodies are maintained in height. There are massive bridging anterior lateral osteophytes in the mid and lower thoracic segment. No visible fractures, dislocations or destructive lesions. CONCLUSIONS: Degenerative changes as detailed. -------- FINAL REPORT -------- Dictated By: Tiffanie Valencia Dictated Date: 11/09/2024 15:01 ET Assigned Physician: Tiffanie Valencia Reviewed and Electronically Signed By: Tiffanie Valencia Signed Date: 11/09/2024 15:02 ET Workstation ID: [id number] Transcribed By: Self Edit Transcribed Date: 11/09/2024 15:01 ET Procedure Note Tiffanie Valencia MD - 11/09/2024 Thoracic spine, 2 views. History mid back pain. No prior studies are available for comparison. Vertebral bodies are maintained in height. There are massive bridginganterior lateral osteophytes in the mid and lower thoracic segment. Novisible fractures, dislocations or destructive lesions. CONCLUSIONS: Degenerative changes as detailed. -------- FINAL REPORT -------- Dictated By: Tiffanie Valencia Dictated Date: 11/09/2024 15:01 ET Assigned Physician: Tiffanie Valencia Reviewed and Electronically Signed By: Tiffanie Valencia Signed Date: 11/09/2024 15:02 ET Workstation ID: [id number] Transcribed By: Self Edit Transcribed Date: 11/09/2024 15:01 ET Zunilda LOZANO IMG XR PROCEDURES Final Resul t * XR Lumbar Spine 4+ Views (11/09/2024 2:21 PM EST) Anatomical Region Laterality Modality Spine, L-spine Radiographic Carol ging 11/09/2024 2:54 PM EST Narrative 11/09/2024 3:01 PM EST Lumbosacral spine, 4 views. History status post fall. Low back pain. Right foot weakness. Comparison with prior studies, latest from 01/13/2024. Examination is limited due to suboptimal visualization of L5-S1 level on the lateral view. Vertebral bodies are maintained in height. There is severe narrowing of the disc space, subchondral sclerosis and marginal osteophytes at L5-S1 level. There are small discogenic anterior lateral osteophytes in the lower thoracic and other levels in the lumbar spine. There are hypertrophic degenerative changes in the facet joints from L3-4 to L5-S1. There is no visible fractures or dislocations. Evaluation of the sacrum is limited due to overlying intestinal contents. There are sclerotic changes in the left SI joint. There are scattered atherosclerotic calcifications of the abdominal aorta. CONCLUSIONS: Limited examination. Degenerative changes as detailed. No significant interval change since previous examination. -------- FINAL REPORT -------- Dictated By: Tiffanie Valencia Dictated Date: 11/09/2024 14:54 ET Assigned Physician: Tiffanie Valencia Reviewed and Electronically Signed By: Tiffanie Vaelncia Signed Date: 11/09/2024 15:01 ET Workstation ID: [id number] Transcribed By: Self Edit Transcribed Date: 11/09/2024 14:54 ET Procedure Note Tiffanie Valencia MD - 11/09/2024 Lumbosacral spine, 4 views. History status post fall. Low back pain. Right foot weakness. Comparison with prior studies, latest from 01/13/2024. Examination is limited due to suboptimal visualization of L5-S1 level onthe lateral view. Vertebral bodies are maintained in height. There is severe narrowing ofthe disc space, subchondral sclerosis and marginal osteophytes at L5-Q6xmdfk. There are small discogenic anterior lateral osteophytes in thelower thoracic and other levels in the lumbar spine. There arehypertrophic degenerative changes in the facet joints from L3-4 to L5-S1.There is no visible fractures or dislocations. Evaluation of the sacrum islimited due to overlying intestinal contents. There are sclerotic changesin the left SI joint. There are scattered atherosclerotic calcificationsof the abdominal aorta. CONCLUSIONS: Limited examination. Degenerative changes as detailed. Nosignificant interval change since previous examination. -------- FINAL REPORT -------- Dictated By: Tiffanie Valencia Dictated Date: 11/09/2024 14:54 ET Assigned Physician: Tiffanie Valencia Reviewed and Electronically Signed By: Tiffanie Valencia Signed Date: 11/09/2024 15:01 ET Workstation ID: [id number] Transcribed By: Self Edit Transcribed Date: 11/09/2024 14:54 ET Zunilda LOZANO IMG XR PROCEDURES Final Resul t * XR Ankle 3+ Views Right (11/09/2024 2:21 PM EST) Anatomical Region Laterality Modality Lower Extremities, Ankle Right Radiogr aphic Imaging 11/09/2024 2:48 PM EST Narrative 11/09/2024 2:50 PM EST Right ankle, 3 views. History ankle pain. Prior internal fixation. No previous studies are available for comparison. There are post operative changes with surgical plate and 5 screws in the distal fibula and single screw in the medial distal tibia. There are severe degenerative changes in the talotibial joint with irregularity of the cortex and subchondral cysts formation. There is flattening of the talar dome. There is anterior spurring in the mid foot. CONCLUSIONS: Post operative and degenerative changes as detailed. -------- FINAL REPORT -------- Dictated By: Tiffanie Valencia Dictated Date: 11/09/2024 14:48 ET Assigned Physician: Tiffanie Valencia Reviewed and Electronically Signed By: Tiffanie Valencia Signed Date: 11/09/2024 14:50 ET Workstation ID: [id number] Transcribed By: Self Edit Transcribed Date: 11/09/2024 14:48 ET Procedure Note Tiffanie Valencia MD - 11/09/2024 Right ankle, 3 views. History ankle pain. Prior internal fixation. No previous studies are available for comparison. There are post operative changes with surgical plate and 5 screws in thedistal fibula and single screw in the medial distal tibia. There aresevere degenerative changes in the talotibial joint with irregularity ofthe cortex and subchondral cysts formation. There is flattening of thetalar dome. There is anterior spurring in the mid foot. CONCLUSIONS: Post operative and degenerative changes as detailed. -------- FINAL REPORT -------- Dictated By: Tiffanie Valencia Dictated Date: 11/09/2024 14:48 ET Assigned Physician: Tiffanie Valencia Reviewed and Electronically Signed By: Tiffanie Valencia Signed Date: 11/09/2024 14:50 ET Workstation ID: [id number] Transcribed By: Self Edit Transcribed Date: 11/09/2024 14:48 ET us Maykel Worley MD IMG XR PROCEDURES Final Result * XR Knee 4+ Views bilat (11/09/2024 2:19 PM EST) Anatomical Region Laterality Modality Lower Extremities, Knee Bilateral [facility] 11/09/2024 2:50 PM EST Narrative 11/09/2024 2:54 PM EST Bilateral knees, 6 views of each history status post fall. Pain. There is no visible fractures or dislocations. There are bilateral degenerative changes more prominent in the lateral compartment on the left and patellofemoral compartments bilaterally more prominent on the left. There is small bilateral joint effusions, slightly more prominent on the right. There are atherosclerotic calcifications in the visualized portion of the femoral artery as well as in the popliteal arteries bilaterally. Well-corticated bony structure located superior laterally. CONCLUSIONS: No evidence of acute fractures or dislocations. Small bilateral effusions slightly larger on the right. Degenerative changes as detailed. Well-corticated bony structures in the superior lateral aspect of the left knee. -------- FINAL REPORT -------- Dictated By: Tiffanie Valencia Dictated Date: 11/09/2024 14:50 ET Assigned Physician: Tiffanie Valencia Reviewed and Electronically Signed By: Tiffanie Valencia Signed Date: 11/09/2024 14:54 ET Workstation ID: [id number] Transcribed By: Self Edit Transcribed Date: 11/09/2024 14:50 ET Procedure Note Tiffanie Valencia MD - 11/09/2024 Bilateral knees, 6 views of each history status post fall. Pain. There is no visible fractures or dislocations. There are bilateraldegenerative changes more prominent in the lateral compartment on the leftand patellofemoral compartments bilaterally more prominent on the left.There is small bilateral joint effusions, slightly more prominent on theright. There are atherosclerotic calcifications in the visualized portionof the femoral artery as well as in the popliteal arteries bilaterally.Well-corticated bony structure located superior laterally. CONCLUSIONS: No evidence of acute fractures or dislocations. Smallbilateral effusions slightly larger on the right. Degenerative changes asdetailed. Well-corticated bony structures in the superior lateral aspectof the left knee. -------- FINAL REPORT -------- Dictated By: Tiffanie Valencia Dictated Date: 11/09/2024 14:50 ET Assigned Physician: Tiffanie Valencia Reviewed and Electronically Signed By: Tiffanie Valencia Signed Date: 11/09/2024 14:54 ET Workstation ID: [id number] Transcribed By: Self Edit Transcribed Date: 11/09/2024 14:50 ET us Zunilda LOZANO IMG XR PROCEDURES Final Resul t * (ABNORMAL) Lipid panel with reflex to direct LDL (08/10/2024 2:34 PM EST) Cholesterol 173 0 - 200 mg/dL LAB CHEMISTRY METHOD 08/10/2024 5:04 PM [facility] Triglycerides 192(H) 0 - 150 mg/dL LAB CHEMISTRY METHOD 08/10/2024 5:04 PM [facility] HDL 43 >=40 mg/dL LAB CHEMISTRY METHOD 08/10/2024 5:04 PM [facility] LDL Calculated 92 0 - 100 mg/dL LAB CHEMISTRY METHOD 08/10/2024 5:04 PM [facility] VLDL Cholesterol Jonas 38.4 mg/dL LAB CHEMISTRY METHOD 08/10/2024 5:04 PM [facility] Non HDL Chol. (LDL+VLDL) 130 <145 mg/dL LAB CHEMISTRY METHOD 08/10/2024 5:04 PM [facility] Chol/HDL Ratio 4.0 0.0 - 4.4 LAB CHEMISTRY METHOD 08/10/2024 5:04 PM [facility] Blood Venous blood specimen / Unknown Venipuncture / Unknown 08/10/2024 2:34 PM EST 08/10/2024 2:35 PM EST us Maykel Worley MD LAB BLOOD ORDERABLES Final Resu lt [facility] [address] [place] [address], [place] [phone] * (ABNORMAL) Comprehensive metabolic panel (08/10/2024 2:34 PM EST) Sodium 136 133 - 145 mmol/L LAB CHEMISTRY METHOD 08/10/2024 5:04 PM [facility] Potassium 4.5 3.5 - 5.5 mmol/L LAB CHEMISTRY METHOD 08/10/2024 5:04 PM [facility] Chloride 103 96 - 110 mmol/L LAB CHEMISTRY METHOD 08/10/2024 5:04 PM [facility] CO2 26 21 - 32 mmol/L LAB CHEMISTRY METHOD 08/10/2024 5:04 PM [facility] Anion Gap 7 3 - 11 LAB CHEMISTRY METHOD 08/10/2024 5:04 PM [facility] Glucose 195(H) 70 - 100 mg/dL LAB CHEMISTRY METHOD 08/10/2024 5:04 PM [facility] BUN 26(H) 5 - 25 mg/dL LAB CHEMISTRY METHOD 08/10/2024 5:04 PM [facility] Creatinine 1.45(H) 0.50 - 1.10 mg/dL LAB CHEMISTRY METHOD 08/10/2024 5:04 PM [facility] eGFR 41(L) >=60 mL/min/1. 73m2 LAB CHEMISTRY METHOD 08/10/2024 5:04 PM [facility] Comment:Calculation based on the??Chronic Kidney Disease Epidemiology Collaboration (CKD-EPI) equation refit??without adjustment for race. BUN/Creatinine Ratio 17.9 LAB CHEMISTRY METHOD 08/10/2024 5:04 PM [facility] Calcium 10.0 8.5 - 10.5 mg/dL LAB CHEMISTRY METHOD 08/10/2024 5:04 PM [facility] AST (SGOT) 23 10 - 42 unit/L LAB CHEMISTRY METHOD 08/10/2024 5:04 PM [facility] ALT (SGPT) 32 10 - 60 unit/L LAB CHEMISTRY METHOD 08/10/2024 5:04 PM [facility] Alkaline Phosphatase 110 42 - 121 unit/L LAB CHEMISTRY METHOD 08/10/2024 5:04 PM [facility] Total Protein 7.8 6.0 - 8.0 g/dL LAB CHEMISTRY METHOD 08/10/2024 5:04 PM [facility] Albumin 4.0 3.2 - 5.0 g/dL LAB CHEMISTRY METHOD 08/10/2024 5:04 PM [facility] Total Bilirubin 0.4 0.0 - 1.4 mg/dL LAB CHEMISTRY METHOD 08/10/2024 5:04 PM [facility] Blood Venous blood specimen / Unknown Venipuncture / Unknown 08/10/2024 2:34 PM EST 08/10/2024 2:35 PM EST Maykel Worley MD LAB BLOOD ORDERABLES Final Resu lt [facility] [address] [place] [address], * Diabetes Eye Exam (06/15/2024) Diabetes: Annual Retina Eye Exam Abstracted Historical Provider HEALTH MAINTENANCE Final Result * SCREENING MAMMOGRAPHY BI 2-VIEW BREAST INC CAD (03/30/2024 11:36 AM EDT) Anatomical Region Laterality Modality Radiographic Carol ging 03/20/2023 1:07 PM EDT Narrative 03/30/2024 2:14 PM EDT This is a summary report. The complete report is available in the patient's medical record. If you cannot access the medical record, please contact the sending organization for a detailed fax or copy. Full field digital screening 2D C views and 3D tomosynthesis mammography, reviewed with CAD and compared to previous. The breasts are composed of fatty and fibroglandular tissue. ??No suspicious mass, architectural distortion or suspicious calcifications are identified. IMPRESSION: : No mammographic evidence of malignancy. BIRADS 1-Negative; N. 5 year breast cancer risk assessment 1.2 % Lifetime breast cancer risk assessment 5.6 % Breast cancer risk category Low (<15%) Procedure Note Tiffanie Valencia MD - 06/23/2024 This is a summary report. The complete report is available in thepatient's medical record. If you cannot access the medical record, pleasecontact the sending organization for a detailed fax or copy. Full field digital screening 2D C views and 3D tomosynthesis mammography,reviewed with CAD and compared to previous. The breasts are composed offatty and fibroglandular tissue. No suspicious mass, architecturaldistortion or suspicious calcifications are identified. IMPRESSION: : No mammographic evidence of malignancy. BIRADS 1-Negative; N. 5 year breast cancer risk assessment 1.2 % Lifetime breast cancer risk assessment 5.6 % Breast cancer risk category Low (<15%) Result [facility] Maykel Worley MD IMG XR PROCEDURES Final Result * Depression Screening (01/07/2024) [facility] Depression Screening Abstracted Result [facility] HEALTH MAINTENANCE Final Result * Cervical Cancer Screening: HPV (03/03/2015) [facility] Cervical Cancer Screening: HPV Negative, Abstracted Result [facility] HEALTH MAINTENANCE Final Result * Hepatitis C Screening (02/01/2014) [facility] Hepatitis C Screening Abstracted Result [facility] HEALTH MAINTENANCE Final Result from Last 3 Months or Most Recently Relevant to Health [place] [id number] [facility] Care Teams Web Application Dev Specialist Relationship Specialty Start Date End Date Maykel Worley MD [address] [place] [address] [place] [phone] PCP - General Internal Medicine 05/19/14
--- OUTSIDE RECORDS SUMMARY | 2024-12-07 16:26 | XMS_ITS | Encounter Summary ---
Author Organization [facility] Address [address] [place] [address] Care Team Providers Care Stamp Clerk Name Role Phone Maykel Worley MD Primary Care Provider [phone] Reason for Visit * Reason Onset Date Comments Results 11/23/2024 Encounter Details Date Type Department Care Team ([facility] st Contact Info) Description 11/23/2024 Telephone Adult Medicine [facility] [address] [place] [address] Maykel Worley MD [address] [place] [phone] Results Social History Tobacco Use Types Packs/Day Years Used Date Smoking Tobacco: Never Smokeless Tobacco: Never Alcohol Use Standard Drinks/Week Comments No 0 (1 standard drink = 0.6 oz pur e alcohol) Comments No Sex and Gender Information Value Date Recorded Sex Assigned at Not on file Legal Sex Female 4:18 AM EST Gender Identity Not on file Sexual Orientation Not on file documented as of this encounter Progress Notes * Keysha Toure MA - 12/06/2024 1:29 PM EDT Called pt regarding results, pt said she never received a letter, and pt wants to know her results.Please review and advise. * Dawna Trotter - 11/23/2024 1:50 PM EDT Inform patient: ANY URGENT OR ABNORMAL RESULTS WIILL RESULT IN A CALL BACK TO THE PATIENT OLIVIA. Type of test: :Imaging Date test was performed: 11/09/24 Where was the test performed: [facility] Who ordered this test?: Zunilda Khan Is the doctor here today?: yes Can the message wait until the doctor returns?: yes IF PATIENT'S PCP IS NOT IN INSTRUCT PATIENT THAT THEY WILL RECEIVE A CALL BACK WHEN THE PCP IS IN THE OFFICE NEXT. documented in this encounter Plan of Treatment Upcoming Encounters Date Type Department Care Team (Late st Contact Info) Description 12/16/2024 2:30 PM EDT Office Visit Nephrology - [address] [phone] [place] [address] [place] [phone] 12/21/2024 10:45 AM EDT Appointment Radiology Department - [address] [phone] 02/15/2025 4:30 PM EDT Appointment [facility] Neurodiagnostic [address] [place] [phone] 04/06/2025 11:20 AM EDT Appointment Radiology Department - [address] [phone] 04/07/2025 11:00 AM EDT Office Visit Adult Medicine [address] [phone] Nicki Landis PA [address] [place] [address] 06/17/2025 11:30 AM EDT Office Visit Adult Medicine [address] [phone] Maykel Worley MD [address] [place] [address] documented as of this encounter Visit Diagnoses Not on filedocumented in this encounter Care Teams Stamp Clerk Relationship Specialty Start Date End Date Maykel Worley MD [address] [place] [phone] PCP - General Internal Medicine 05/19/14 documented as of this encounter
--- OUTSIDE RECORDS SUMMARY | 2024-12-07 16:26 | XMS_ITS | Clinical Summary ---
Author Organization [facility] Address [address] [phone] Phone Care Team Providers Care Hands And Dial Inspector Name Role Phone Unavailable Primary Care Provider Unavailabl e Medications gabapentin (NEURONTIN) 300 MG capsule Take 300 mg by mouth in the morning and 300 mg in the evening and 300 mg before bedtime. Active levothyroxine (SYNTHROID, LEVOTHROID) 75 MCG tablet Take 75 mcg by mouth 1 (one) time each day Active omeprazole OTC (PriLOSEC OTC) 20 MG EC tablet Take 20 mg by mouth 1 (one) time each day Do not crush, chew, or split. Active carvedilol (COREG) 12.5 MG tablet Take 12.5 mg by mouth in the morning and 12.5 mg in the evening. Take with meals. Active traZODone (DESYREL) 50 MG tablet Take 50 mg by mouth every night Active insulin glargine (LANTUS) 100 UNIT/ML injection Inject under the skin every night Active insulin aspart (NovoLOG) 100 UNIT/ML patient supplied pump Inject under the skin continuously Active Dulaglutide (Trulicity) 1.5 MG/0.5ML solution auto-injector Inject under the skin Active aspirin (ST CHANCE) 81 MG EC tablet Take 81 mg by mouth 1 (one) time each day Active nitroglycerin (NITROSTAT) 0.[address] 0.4 mg under the tongue every 5 (five) minutes if needed for chest pain Active atorvastatin (LIPITOR) 80 MG tablet Take 80 mg by mouth 1 (one) time each day Active valsartan-hydro CHLOROthiazide (DIOVAN-HCT) 160-25 MG per tablet Take 1 tablet by mouth 1 (one) time each day Active glucose blood test strip 1 each by Other route if needed Use as instructed Active Family History Medical History Relation Comments Cancer Father Cancer Mother Relation Status Comments Father Mother Alive Social History Tobacco Use Types Packs/Day Years Used Date Smoking Tobacco: Never Smokeless Tobacco: Never Tobacco Cessation:Counseling Given: Not Answered Alcohol Use Standard Drinks/Week Comments Not Asked 0 (1 standard drink = 0.6 oz pur e alcohol) NO Comments Unknown Sex and Gender Information Value Date Recorded Sex Assigned at Not on file Legal Sex Female 5:07 PM EST Gender Identity Not on file Sexual Orientation Not on file Plan of Treatment Health Maintenance Due Date Last Done Comments Breast Cancer Screening 1960 Pneumococcal Vaccine: Pediat rics (0 to 5 Years) and At-Risk Patients (6 to 64 Years) (1 of 2 - PCV) 1966 Colorectal Cancer Screening: Annual FOBT 2009 Colorectal Cancer Screening: Colonoscopy 2009 Colorectal Cancer Screening: Sigmoidoscopy 2009 Influenza Vaccine (#1) 2024 Hepatitis B Vaccine Aged Out No longe r eligible based on patient's age to complete this topic Insurance [facility] MEDICAID
--- OUTSIDE RECORDS SUMMARY | 2024-12-07 16:26 | XMS_ITS | Encounter Summary ---
Author Organization [facility] Address [address] [place] [address] Care Team Providers Care Structural Test Engineer Name Role Phone Maykel Worley MD Primary Care Provider [phone] Reason for Referral * Imaging (Routine) - Pending Review Specialty Diagnoses / Procedures Referred By Contac t Referred To Contact Radiology Diagnoses Distended abdomen Procedures US Abdomen Complete Maykel Worley MD [address] [place] [address] Phone: tel: fax: [address] Phone: tel: Referral ID Status Reason Start Date Expiration Date V isits Requested Visits Authorized [id number] Pending Review 12/06/2024 12/06/2025 1 1 * Consultation (Routine) - Pending Review Specialty Diagnoses / Procedures Referred By Contac t Referred To Contact Physical Therapy Diagnoses Frequent falls Maykel Worley MD [address] [place] [address] Phone: tel: fax: Jose Trevino, PT [address], [place] Phone: tel: fax: Referral ID Status Reason Start Date Expiration Date Visits Requested Visits Authorized [id number] Pending Review Specialty Services Required 12/06/2024 12/06/2025 1 1 * Consultation (Urgent) - Closed Specialty Diagnoses / Procedures Referred By Gilles triplett Referred To Contact Endocrinology Diagnoses Type 2 diabetes mellitus with other diabetic kidney complication, with long-term current use of insulin Maykel Worley MD [address] [place] [id number] Phone: tel: fax: Adelaide Perez MD [address] [place] [address] Phone: tel: fax: Referral ID Status Reason Start Date Expiration Date V isits Requested Visits Authorized [id number] Closed Specialty Services Required 12/06/2024 12/06/2025 1 1 Reason for Visit * Reason Comments Leg Pain Folloe up Shoulder Pain Back Pain Encounter Details Date Type Department Care Team (Late st Contact Info) Description 12/06/2024 11:00 AM EDT Office Visit Adult Medicine [address] [phone] Maykel Worley MD [address] [place] [id number] Type 2 diabetes mellitus with other diabetic kidney complication, with long-term current use of insulin (CMS/HCC) (Primary Dx); Frequent falls; Distended abdomen; Stage 3b chronic kidney disease (CMS/HCC); Lumbar disc disease; Weakness of right foot; Other back pain, unspecified chronicity; Arthritis of both knees; Essential hypertension Social History Tobacco Use Types Packs/Day Years [...] on file documented as of this encounter Last Filed Vital Signs Vital Sign Reading Time Taken Comments Blood Pressure 140/76 12/06/2024 11:15 AM EDT Pulse 80 12/06/2024 11:15 AM EDT Temperature 36.8 ??C (98.2 ??F) 12/06/2024 11:15 AM E DT Respiratory Rate 12 12/06/2024 11:15 AM EDT Oxygen Saturation 95% 12/06/2024 11:15 AM EDT Inhaled Oxygen Concentration - - Weight - - Height 157.5 cm (5' 2 ) 12/06/2024 11:15 AM EDT Body Mass Index - - documented in this encounter Ordered Prescriptions Prescription Sig Dispense Quantity Refills Last Filled Start Date End Date pregabalin (LYRICA) 150 mg capsule Take 1 capsule (150 mg total) by mouth 2 (two) times a day. Max Daily Amount: 300 mg 60 each 5 12/06/2024 documented in this encounter Progress Notes * Maykel Worley MD - 12/06/2024 11:00 AM EDT CHIEF COMPLAINT: Leg Pain (Folloe up), Shoulder Pain, and Back Pain IDENTIFIER: Ginny Sears is a 64 y.o. old female. HPI: Pt with diabetes last A1c 7.0 08/2024 pt follows with endo,pt with knee oa,ckd ,htn,cad,hypothyroid Pt is here today to follow up on appointment with my colleague on 11/09/2024 pt presented with right foot weakness. Pt notes the foot will give out, pt reported falls x 2. Pt had been c/o of symptoms xtwo weeks She reports bilateral knee pain, mid back pain and low back pain Pt had no focal neurological deficits pt referred for RLE EMG and was referred to physiatry Pt to have EMG 01/2025 Pt is seeing specialist tomw For upper back pain pt had thoracic and lumbar xrays ordered Thoracic xray 11/09/2024 Vertebral bodies are maintained in height. There are massive bridging anterior lateral osteophytes in the mid and lower thoracic segment. No visible fractures, dislocations or destructive lesions. Lumbar xray 11/2024 Examination is limited due to suboptimal visualization of L5-S1 level on the lateral view. Vertebral bodies are maintained in height. There is severe narrowing of the disc space, subchondralsclerosis and marginal osteophytes at L5-S1 level. There [...] scattered atherosclerotic calcifications of the abdominal aorta. Xray knee 11/09/2024 There is no visible fractures or dislocations. There are bilateral degenerative changes more prominent in the lateral compartment on the left and patellofemoral compartments bilaterally more prominent on the left. There is small bilateral joint effusions, slightly more prominent on the right. Thereare atherosclerotic calcifications in the visualized portion of the femoral artery as well as in the popliteal arteries bilaterally. Well-corticated bony structure located superior laterally. Pt has csc violation pt with ckd so must avoid nsaids Gabapentin was not helpful in the past Pt was started on cymbalta 30mg Family is requesting prescriptions for knee braces (due to knee pain), walker with seat, bedside commode and shower chair. Patient lives in [facility] (two-level) and family feels she would benefit from these DME supplies with her ADLs Pt did receive everything except for knee, brace pt need fitting but having hard time getting out of the house pt has had 8 falls since her last visit Bp today is slightly elevated@140/76 Pt is on coreg 12.5mg and valsartan-hctz 160-25 Pt has been off mounjaro due to insurance needs a pa for 2-3 weeks Pt is on lispro 35 units to 45 units tid meals Sugars have been in 60's-400's Pt does not have f/u with endo. 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 ([facility]) 04/18/2014 Vitamin B12 deficiency 10/21/2013 Vitamin D deficiency 10/21/2013 Diabetes mellitus type 2 with neurological manifestations ([facility]) 05/18/2013 Microalbuminuria 05/18/2013 Type 2 diabetes mellitus with eye manifestations ([facility]) 05/18/2013 Type II diabetes mellitus with renal manifestations ([facility]) 05/18/2013 Venous insufficiency 05/25/2010 Anemia 10/21/2008 Carpal tunnel syndrome 06/21/2008 GERD (gastroesophageal reflux disease) 02/29/2008 Anxiety 11/19/2007 Depression 10/29/2007 Ankle pain 09/30/2007 Insomnia 09/30/2007 Morbid obesity with BMI of 45.0-49.9, adult ([facility]) 06/18/2007 Asthma 06/10/2007 Hyperlipidemia 06/10/2007 Hypothyroidism 06/10/2007 SOCIAL HISTORY: Social History Tobacco Use Smoking status: Never Smokeless tobacco: Never Substance Use Topics Alcohol use: No FAMILY HISTORY: Family Status Relation Name Status Mother Alive DM, CAD, lung cancer Father DM Neg Hx (Not Specified) Sister Alive HTN Sister tragedy Daughter Alive Daughter Alive DM, had brain surgery No partnership data on file Family History Problem Relation Name Age of Onset Other cancer Mother cervical or endometrial Other cancer Father stomach Breast cancer Neg Hx ACTIVE MEDICATIONS: Outpatient Medications Marked as Taking for the 12/06/24 encounter (Office Visit) with Maykel Worley MD Medication Sig Dispense Refill aspirin 81 mg chewable tablet CHEW AND SWALLOW ONE TABLET BY MOUTH EVERY DAY 90 tablet 1 atorvastatin (LIPITOR) 80 mg tablet Take 1 Tablet by mouth at bedtime. carvediloL (COREG) 12.5 mg tablet Take 1 Tablet by mouth 2 Times Daily. cholecalciferol (VITAMIN D-3) 50 mcg (2,000 unit) capsule TAKE ONE CAPSULE BY MOUTH EVERY DAY 90 capsule 1 DULoxetine (CYMBALTA) [address] capsule Take 1 capsule (30 mg total) by mouth 1 (one) time each day.Do not crush or chew. 30 capsule 0 fluticasone propionate (FLONASE) 50 mcg/actuation nasal spray 1 Frederic by Each Nare route daily for 360 days. hydrOXYzine HCL (ATARAX) 25 mg tablet Take 1 tablet (25 mg total) by mouth every 8 (eight) hours ifneeded for anxiety. for anxiety 30 tablet 5 ipratropium-albuteroL (DUONEB) 0.5-2.5 mg/3 mL nebulizer solution Take 1 mL by mouth every 8 hours as needed (SOB). levothyroxine (SYNTHROID, LEVOTHROID) 75 mcg tablet Take 1 Tablet by mouth daily. omeprazole (PriLOSEC) [address] capsule TAKE ONE CAPSULE BY MOUTH EVERY DAY 90 capsule 1 traZODone (DESYREL) 50 mg tablet TAKE ONE TABLET BY MOUTH DAILY AT BEDTIME 90 tablet 1 valsartan-hydroCHLOROthiazide (DIOVAN-HCT) 160-25 mg per tablet Take 1 Tablet by mouth daily. ALLERGIES: Lisinopril and Penicillins PHYSICAL EXAM: Blood pressure (!) 140/76, pulse 80, temperature 36.8 ??C (98.2 ??F), temperature source Temporal, resp. rate 12, height 1.575 m (62 ), SpO2 95%. Body mass index is 46.82 kg/m??. Plan is deferred until next visit APPEARANCE: Alert and in no acute distress EYES: PERRLA, conjunctiva and sclera normal HEART: RRR with normal S1 and S2, no murmurs, no gallops, no JVD appreciated LUNG: clear to auscultation bilaterally ABDOMEN: Bowel sounds normoactive, no bruits, soft, non-tender, without organomegaly or palpable masses, and abdominal obesity EXTREMITIES: Extremities warm and well perfused without clubbing, cyanosis, or edema LABS: none IMPRESSION: 1. Type 2 diabetes mellitus with other diabetic kidney complication, with long- term current use of insulin (CMS/HCC) 2. Frequent falls 3. Distended abdomen 4. Stage 3b chronic kidney disease (CMS/HCC) 5. Lumbar disc disease 6. Weakness of right foot 7. Other back pain, unspecified chronicity 8. Arthritis of both knees 9. Essential hypertension PLAN: Pt with chronic pain management complicated as pt has CSC violation and CKD pt with knee and back pain and right foot giving out. Pt is to have EMG 01/2025 pt to see physiatry tomorrow. Cymbalta was not helpful for pain I will now trial lyrica 150 mg po bid D/w pt this med can cause lethargy pt toldto avoid driving, etoh, or operating heavy machinery Pt c/o abdominal distension exam today was benign I will now order hepatic function labs and ordered abdominal u/s Pt with diabetes last A1c 7.0 pt hs been off GLP1a for 2-3 weeks pt notes sugars > 300 and even 400. Pt notes low sugars as well pt currently is on lispro tid ac. Currently awaiting PA for peggy. I will place referral for endo to either help with the PA or to help with choosing an alternativetreatment. I will update A1c today Pt notes poor balance 2nd to her foot pt has had frequent falls pt notes she cannot coordinate withwalker and needs assistance with cane. Pt may be a candidate for a mechanized scooter or wheel chair. Pt has received safety devices namely walker bedside commode and shower chair. At this time I will refer for phys therapy Pt with htn bp today slightly elevated at 140/76 pt notes pain and came in on wheel chair I will continue pt current regimen of coreg valsartan and hctz if bp not improved would consider increasing the coreg in the future Pt to f/u with care team in 4 months Myself and my colleagues have maintained a long-term, longitudinal relationship with this patient, overseeing care of chronic conditions including diabetes and hypertension. This care relationship has significantly influenced my decision making and treatment plans during today's encounter. Orders Placed This Encounter Procedures US Abdomen Complete Hemoglobin A1c Hepatic function panel Ambulatory referral to Endocrinology Ambulatory referral to Physical Therapy and Athletic Training ADDITIONAL ORDERS: None Maykel Worley MD on 12/06/2024 at 10:44 AM EDT documented in this encounter Plan of Treatment Upcoming Encounters Date Type Department Care Team (Late st Contact Info) Description 12/16/2024 2:30 PM EDT Office Visit Nephrology - [address] [phone] Prabhu Pugh MD [address] [phone] 12/21/2024 10:45 AM EDT Appointment Radiology Department - [address] [phone] 02/15/2025 4:30 PM EDT Appointment [facility] Neurodiagnostic [address] [place] [phone] 04/06/2025 11:20 AM EDT Appointment Radiology Department - [address] [phone] 04/07/2025 11:00 AM EDT Office Visit Adult Medicine [address] [phone] Nicki Landis PA [address] [place] [address] 06/17/2025 11:30 AM EDT Office Visit Adult [address] [phone] Maykel Worley MD [address] [place] [address] Scheduled Orders Name Type Priority Associated Diagnoses Orde r Schedule US Abdomen Complete Imaging Routine Distended abdomen Expected: 12/06/2024, Expires: 12/06/2025 Scheduled Referrals Name Type Priority Associated Diagnoses Order Schedule Ambulatory referral to Endocrinology Outpatient Referral Routine Type 2 diabetes mellitus with other diabetic kidney complication, with long-term current use of insulin ([facility]) 1 Occurrences starting 12/06/2024 until 12/06/2025 Ambulatory referral to Physical Therapy and Athletic Training Outpatient Referral Routine Frequent falls 1 Occurrences starting 12/06/2024 until 12/06/2025 documented as of this encounter Results * (ABNORMAL) Hepatic function panel (12/06/2024 12:10 PM EDT) Total Protein 7.9 6.0 - 8.0 g/dL LAB CHEMISTRY METHOD 12/06/2024 3:34 PM EDT [facility] Albumin 3.6 3.2 - 5.0 g/dL LAB CHEMISTRY METHOD 12/06/2024 3:[address] [facility] Total Bilirubin 0.3 0.0 - 1.4 mg/dL LAB CHEMISTRY METHOD 12/06/2024 3:[address] [facility] Bilirubin, Direct <0.1 0.0 - 0.3 mg/dL LAB CHEMISTRY METHOD 12/06/2024 3:[address] [facility] Bilirubin, Indirect LAB CHEMISTRY METHOD 12/06/2024 3:[address] [facility] Comment:Unable to calculate Indirect Bilirubin. ALT (SGPT) 33 10 - 60 unit/L LAB CHEMISTRY METHOD 12/06/2024 3:[address] [facility] AST (SGOT) 21 10 - 42 unit/L LAB CHEMISTRY METHOD 12/06/2024 3:[address] [facility] Alkaline Phosphatase 144(H) 42 - 121 unit/L LAB CHEMISTRY METHOD 12/06/2024 3:[address] [facility] Blood Venous blood specimen / Unknown Venipuncture / Unknown 12/06/2024 12:10 PM EDT 12/06/2024 12:10 PM EDT us Maykel Worley MD LAB BLOOD ORDERABLES Final Resu lt [facility] [address] [place] [address], * (ABNORMAL) Hemoglobin A1c (12/06/2024 12:10 PM EDT) Hemoglobin A1C 7.5(H) <6.5 % LAB CHEMISTRY METHOD 12/06/2024 9:[address] [facility] Mean Bld Glu Estim. 169 mg/dL LAB CHEMISTRY METHOD 12/06/2024 9:[address] [facility] Blood Venous blood specimen / Unknown Venipuncture / Unknown 12/06/2024 12:10 PM EDT 12/06/2024 12:10 PM EDT us Maykel Worley MD LAB BLOOD ORDERABLES Final Resu lt [facility] [address] [place] [address], documented in this encounter Visit Diagnoses Diagnosis Type 2 diabetes mellitus with other diabetic kidney complication, with long-term current use of insulin- Primary Frequent falls Distended abdomen Flatulence, eructation, and gas pain Stage 3b chronic kidney disease (CMS/HCC) Lumbar disc disease Other and unspecified disc disorder of lumbar region Weakness of right foot Other back pain, unspecified chronicity Arthritis of both knees Essential hypertension Unspecified essential hypertension Encounter for screening mammogram for breast cancer documented in this encounter Care Teams Structural Test Engineer Relationship Specialty Start Date End Date Maykel Worley MD [address] [place] [id number] PCP - General Internal Medicine 05/19/14 documented as of this encounter
--- OUTSIDE RECORDS SUMMARY | 2024-12-07 16:26 | XMS_ITS | Encounter Summary ---
Author Organization [facility] Address [address] [place] [address] Care Team Providers Care Retail Chain Store Area Supervisor Name Role Phone Maykel Worley MD Primary Care Provider [phone] Reason for Visit * Reason Onset Date Comments Referral 12/06/2024 Endo Encounter Details Date Type Department Care Team ([facility] st Contact Info) Description 12/06/2024 Telephone Adult Medicine [address] [phone] Maykel Worley MD [address] [place] [phone] Referral (Endo) Social History Tobacco Use Types Packs/Day Years [...] as of this encounter Progress Notes * Julien Botello RN - 12/06/2024 1:51 PM EDT Called and advised pt of message below will call dr reddy office to schedule appt She is also stating can't get medication that dr shelton ordered by he listed as an allergy but its allergic? Only see pcn and lisinopril Please review and advsie * Azalia Mensah - 12/06/2024 1:10 PM EDT Urgent referral was received for patient to be seen in Endo. Patient is already established with [facility] and can make appointments to follow up as needed at any time. documented in this encounter Plan of Treatment Upcoming Encounters Date Type Department Care Team (Late st Contact Info) Description 12/16/2024 2:30 PM EDT Office Visit Nephrology - [address] [phone] Prabhu Pugh MD [address] [phone] 12/21/2024 10:45 AM EDT Appointment Radiology Department - [address] [phone] 02/15/2025 4:30 PM EDT Appointment [facility] Neurodiagnostic [address] [place] [phone] 04/06/2025 11:20 AM EDT Appointment Radiology Department - [address] [phone] 04/07/2025 11:00 AM EDT Office Visit Adult Medicine [address] [phone] Nicki Landis PA [address] [place] [address] 06/17/2025 11:30 AM EDT Office Visit Adult Medicine [address] [phone] Maykel Worley MD [address] [place] [address] documented as of this encounter Visit Diagnoses Not on filedocumented in this encounter Care Teams Retail Chain Store Area Supervisor Relationship Specialty Start Date End Date Maykel Worley MD [address] [place] [address] PCP - General Internal Medicine 05/19/14 documented as of this encounter
--- OUTSIDE RECORDS SUMMARY | 2024-12-07 16:26 | XMS_ITS | Data Portability ---
Author Organization [facility], [address] Address [address] [place] [address] Assessment No assessment recorded. Plan of Treatment Reminders Order Date Submit Date Provider Last Modified By Organization Details Last Modified Time Details Appointments None recorded. Lab None recorded. Referral None recorded. Procedures None recorded. Surgeries None recorded. Imaging None recorded. Medication Orders neomycin- polymyxin -hydrocor t 3.5 mg-10,000 unit/mL-1 % ear drops,[facility] [id number] [id number] [id number] [address] [place], [address], 3 12:10:19 Allergy Relief (fluticas one) 50 mcg/actua tion nasal spray,[facility] 023 023 [id number], [address] [place], [address], 3 12:10:19 Patient TargetsNo targets recorded. Patient Instructions Encounter Date Encounter Id Patient Instructions Last Modified By Organization Details Last Modified Time 10/06/2022 [id number] Sinusitis is an infection of the lining of the sinus cavities in your head. Sinusitis often follows a cold. It causes pain and pressure in your head and face. In most cases, sinusitis gets better on its own in 1 to 2 weeks. But some mild symptoms may last for several weeks. Sometimes antibiotics are needed. if you are having problems. It's also a good idea to know your test results and keep a list of the medicines you take. How can you care for yourself at home? Take an xrhl-php-ukbnwng pain medicine. Avoid Ibuprofen, Aleve and Aspirin if . If the doctor prescribed antibiotics, take them as directed. Do not stop taking them just because you feel better. You need to take the full course of antibiotics. Be careful when taking bidj-vjp-ijmkzbf cold or influenza (flu) medicines and Tylenol at the same time. Many of these medicines have acetaminophen, which is Tylenol. Read the labels to make sure that you are not taking more than the recommended dose. Too much acetaminophen (Tylenol) can be harmful. Breathe warm, moist air from a steamy shower, a hot bath, or a sink filled with hot water. Avoid cold, dry air. Using a humidifier in your home may help. Follow the directions for cleaning the machine. Use saline (saltwater) nasal washes. This can help keep your nasal passages open and wash out mucus and bacteria. You can buy saline nose drops at a grocery store or drugstore. Or you can make your own at home by adding 1 teaspoon (5 millilitres) of salt and 1 teaspoon (5 millilitres) of baking soda to 2 cups (500 mL) of distilled water. If you make your own, fill a bulb syringe with the solution, insert the tip into your nostril, and squeeze gently. Blow your nose. Put a hot, wet towel or a warm gel pack on your face 3 or 4 times a day for 5 to 10 minutes each time. Try a decongestant nasal spray like oxymetazoline (Drixoral). Do not use it for more than 3 days in a row. Using it for more than 3 days can make your congestion worse. [email or web address] Not available 10/06/2022 12:10:16 Water in the ear , from swimming or bathing, makes the ear canal prone to infection. Hot and humid weather also predisposes to infection. Symptoms of otitis externa include: ear pain, fullness or itching in the ear, ear drainage, and temporary loss of hearing. These symptoms are similar to those caused by otitis media (middle ear infection). To differentiate between external ear infection and middle ear infection, the provider looks in the ear with an instrument called an otoscope. It is important to distinguish between the two infections, as they are treated differently: External otitis is treated with drops in the ear canal, while middle ear infection is sometimes treated with an antibiotic by mouth. MEASURES YOU SHOULD TAKE TO HELP TREAT EXTERNAL EAR INFECTION: 1. Use the ear drops regularly, as directed on the prescription. 2. The lucas to treatment is getting the drops down into the canal and keeping the medicine there. To accomplish this: Lie on your side, with the unaffected ear down. Put three to four drops in the infected ear canal, then gently pull the outer ear back and forth several times, working the medicine deeper into the ear canal. Remain still, tskz-pgo-bbne-down for about 15 minutes. 3. Keep the ear as dry as possible. Swimming should be postponed until the infection has cleared. Try to avoid getting water in the ear when bathing. If water does get in the ear, the canal can be gently dried with a hair blow dryer. Use the low heat setting, and keep the blow dryer about six inches from the ear. 4. Jtgw-fgb-elxlxyk pain medications can relieve discomfort associated with external otitis. Acetaminophen (Tylenol), ibuprofen, or naproxen can be taken, depending on individual preference. 5. Return to the [facility] in about one week. The provider can check to make sure the infection has cleared, continue the medicine if needed, okay a return to swimming, etc. 6. To prevent repeated episodes of otitis externa, try to keep the ear canal dry. Gentle swabbing with Q-tips (never deep into the canal), along with a hair blow dryer (low heat), can be used to dry the ear canal if it gets wet. 7. Should you develop severe pain, fever, severe headache, or stiff neck, see your personal/referral doctor or go to the closest emergency department promptly. Otitis externa does not normally cause these symptoms; another problem, requiring different treatment, could be present [email or web address] Not available 10/06/2022 12:10:03 Reason for Referral None Reported. Problems Name Problem SNOMED Code Status Onset Date Resolution Date Notes Provider Name and Address Organization Details Recorded Time Hyperlipidemia 94397566 Active 2022 [facility] 3 11:38:17 Essential hypertension 33800087 Active 2022 [facility] 3 11:38:26 Type 2 diabetes mellitus 07872846 Active 2022 IRIS COUVERTIE R null, PA - [facility] 3 11:38:43 Hypothyroidism 05963762 Active 2022 JOSEPH CARRANZA R null, PA - [facility] 3 11:39:15 Arthritis 5702556 Active 2022 JOSEPH CARRANZA R null, PA - [facility] 3 11:39:37 Neuropathy 217119051 Active 2022 JOSEPH CARRANZA R null, PA - [facility] 3 11:39:55 Problem Notes None recorded. Procedures Surgical History Date Name Laterality Status Provider Name and Address Organization Details Recorded Time cholecystectomy completed JOSEPH Monteiro PA - [facility] 10/06/2022 11:40:33 Imaging Results None recorded. Procedure Notes None recorded. Medical Equipment None Reported. Allergies Allergen ID Allergen Name Allergen Category Reaction Reaction Severity Criticality Documentation Date Start Date Code Code System Note Provider Name and Address Organization Details Recorded Time 711864 Product containin g penicilli n (product) medicatio n Not available Not available Not available 10/06/2022 56600 8001 SNOMED JOSEPH CARRANZA R null, PA - [facility] 3 11:35:53 661426 lisinopri l medicatio n Not available Not available Not available 10/06/2022 74410 RxNorm JOSEPH Monteiro null, PA - [facility] 3 11:35:57 Medications Name Sig Start Date Stop Date Status Note LastModified by Organization Details LastModified Time atorvastati n 40 mg tablet TAKE 1 TABLET BY MOUTH EVERY DAY 10/06 completed Not Available Not Available Not Available atorvastati n 80 mg tablet TAKE 1 TABLET BY MOUTH EVERY DAY active Not Available Not Available No t Available carvedilol 12.5 mg tablet TAKE 1 TABLET BY MOUTH TWICE A DAY active Not Available Not Available No t Available ipratropium 0.5 mg-albutero l 3 mg (2.5 mg base)/3 mL nebulizatio n soln TAKE 1 ML BY MOUTH EVERY 8 HOURS NEEDED FOR SHORTNESS OF BREATH active Not Available Not Available No t Available trazodone 50 mg tablet TAKE 1 TABLET BY MOUTH EVERYDAY AT BEDTIME active Not Available Not Available No t Available FreeStyle Lancets 28 gauge TEST 4 TIMES A DAY active Not Available Not Available No t Available ondansetron HCl 4 mg tablet TAKE 1 TABLET BY MOUTH EVERY 8 HOURS NEEDED FOR NAUSEA 10/06 completed Not Available Not Available Not Available doxycycline monohydrate 100 mg tablet TAKE 1 TABLET BY MOUTH TWICE A DAY FOR 10 DAYS 10/06 completed Not Available Not Available Not Available levothyroxi ne 75 mcg tablet TAKE 1 TABLET BY MOUTH EVERY DAY active Not Available Not Available No t Available oxycodone-a cetaminophe n 5 mg-325 mg tablet TAKE 1 TABLET BY MOUTH EVERY 6 HOURS NEEDED FOR PAIN 10/06 completed Not Available Not Available Not Available nitroglycer in 0.[address] 1 TABLET UNDER THE TONGUE EVERY 5 MINUTES NEEDED FOR CHEST PAIN. active Not Available Not Available No t Available gabapentin 300 mg capsule TAKE 3 CAPSULES BY MOUTH 3 TIMES DAILY. 10/06 completed Not Available Not Available Not Available omeprazole 20 mg capsule,del ayed release TAKE 1 CAPSULE BY MOUTH EVERY DAY active Not Available Not Available No t Available aspirin 81 mg chewable tablet TAKE 1 TABLET BY MOUTH EVERY DAY active Not Available Not Available No t Available clotrimazol e 1 % topical cream APPLY EXTERNALL Y TO AFFECTED AREA TWICE A DAY FOR 7 DAYS 10/06 completed Not Available Not Available Not Available glipizide 5 mg tablet TAKE 1 TABLET TWICE A DAY WITH MEALS active Not Available Not Available No t Available neomycin-po lymyxin-hyd rocort 3.5 mg-10,000 unit/mL-1 % ear drops,susp INSTILL 4 DROPS INTO AFFECTED EAR(S) BY OTIC ROUTE 3 TIMES PER DAY 2022 active Not Available Not Available Not Avai lable valsartan 160 mg-hydrochl orothiazide 25 mg tablet TAKE 1 TABLET BY MOUTH EVERY DAY active Not Available Not Available No t Available BD Ultra-Fine Short Pen Needle 31 gauge x 5/16 USE TO INJECT INSULIN THREE TIMES DAILY active Not Available Not Available No t Available FreeStyle Lite Strips USE TO TEST BLOOD SUGAR 4 TIMES DAILY. INS MAX OF 100RX/30D active Not Available Not Available No t Available Lantus Solostar U-100 Insulin 100 unit/mL (3 mL) subcutaneou s pen INJECT 120 UNITS INTO THE SKIN EVERY MORNING. PLUS 90 UNITS EVERY EVENING active Not Available Not Available No t Available Humalog KwikPen (U-100) Insulin 100 unit/mL subcutaneou s INJECT 35 UNITS WITH BREAKFAST , 45 UNITS WITH LUNCH AND 50 UNITS WITH DINNER. active Not Available Not Available No t Available FreeStyle Avalon Lite kit USE DEVICE 4 TIMES DAILYTO CHECK BLOOD SUGAR active Not Available Not Available No t Available Jardiance 10 mg tablet TAKE 1 TABLET BY MOUTH EVERY DAY active Not Available Not Available No t Available Jardiance 25 mg tablet TAKE 1 TABLET BY MOUTH EVERY DAY IN THE MORNING active Not Available Not Available No t Available Trulicity 1.5 mg/0.5 mL subcutaneou s pen injector INJECT 1.5 MG INTO THE SKIN ONCE A WEEK. active Not Available Not Available No t Available Allergy Relief (fluticason e) 50 mcg/actuati on nasal spray,suspe nsion [place] 1 spray twice a day by intranasa l route as directed for 30 days. 2022 active Not Available Not Available Not Avai lable FreeStyle Jennifer 2 Sensor kit USE DIRECTED 4 TIMES A DAY REPLACE EVERY 14 DAYS active Not Available Not Available No t Available Trulicity 4.5 mg/0.5 mL subcutaneou s pen injector INJECT 4.5 MG INTO THE SKIN ONCE A WEEK. active Not Available Not Available No t Available Vitals Date Recorded Body height Body mass index (BMI) Body weight Body temperature Respiratory rate Heart rate Oxygen saturation Oxygen saturation in Arterial blood by Pulse oximetry Systolic blood pressure Diastolic blood pressure Provider Name and Address Organization Details Last Updated DateTime 3 157.48 cm 49.4 kg/m2 777345. 94 g 97.8 [degF] 20 /min 70 /min 97 % 97 % 135 mm[Hg] 78 mm[Hg] JOSEPH Monteiro PA - [facility] 3 11:42:29 Social History Question Answer Notes LastModified by Organizat ion Details LastModified Time Tobacco Smoking Status Never Smoker JOSEPH harding PA - [facility] 10/06/2022 11:40:07 What Is Your Level Of Alcohol Consumption? None Information not available 10/06/2022 What Is Your Water Source? City Information not available 10/06/2022 What Is Your Heat Source? Gas Information not available 10/06/2022 Have You Had Direct Contact, Or Contact During Intimacy, With Monkeypox Rash, Scabs, Or Body Fluids From A Person With Monkeypox? No Information not available 10/06/2022 Do You Use Any Illicit Or Recreational Drugs? No Information not available 10/06/2022 Have You Recently Traveled Abroad? No Information not available 10/06/2022 Do You Or Have You Ever Used Any Other Forms Of Tobacco Or Nicotine? No Information not available 10/06/2022 Sex: Unknown Functional Status None recorded. Mental Status None recorded. Family History Relationship Description Onset Age of this Age Resolved Age Notes LastModified by Organization Details LastModified Time Father No current problems or disability Not available 11:39:59 Mother No current problems or disability Not available 11:39:59 Medical History No medical history recorded. Gynecological HistoryNo gynecological history recorded. Obstetrics History GPAL:G 0 P 0 0 0 0 Past Encounters Encounter ID Performer Location Encounter Start Date Encounter Closed Date Diagnosis/Indication Diagnosis SNOMED-CT Code Diagnosis ICD10 Code Diagnosis Note [id number] [address] [address] 02/02/2019 11:18:13 02/02/2019 11:57:11 [id number] [place] Fajardo [place] [address] [address] 10/06/2022 10:47:47 10/06/2022 12:12:14 Otitis externa of left ear 2104544564 784649 H60.92 Acute sinusitis 28852481 J01.90 Health Concerns Section Related Observation LastModified by Organization Detai ls LastModified Time None Recorded Concern Status LastModified by Organization Details LastModified Time None Recorded Advance Directives Directive None Recorded Payers Encounter Date Sequence Insurance Name Policy Number Policy Marks Covered Member ID Marks Member ID Guarantor Name 02/02/2019 1 [facility] (MEDICAID REPLACEMENT - O) APOLONIA Mathews [id number] Ginny Mathews 10/06/2022 1 [facility] (MEDICAID REPLACEMENT - HMO) APOLONIA Lagunasmigue Mathews [id number] Ginny Mathews Notes Date Note Type Note Provider Name and Address Organization Details Recorded Time 10/06/2022 text/html left ear pain x 1 day. feeling of block ear . Lorenzo Fajardo NP [address] [place], [address], [place] - [facility] 10/06/2022 12:10:54 OBGyn Episode No OBEpisode recorded.
--- NOTE | 2024-12-07 16:33 | PC.NURSE ---
Pt has decreased mobility aty baseline and uses WC at home. Abd is large, soft, non tender. Daughter is assistance at home. Pt denies CP but states she's had palpitations recently and was put o a medication for them. Plan is for u/s and repeat troponin. NSR on motniros. SKin pwd. unlabored resp.
[2024-12-07 18:10] VITALS: BP 118/72; PULSE 86; RESP 16; O2SAT 96
[2024-12-07 18:54] LABS: Troponin-I High Sensitivity 55.3 ng/L (<3.5-17.0)
[2024-12-07 19:06] VITALS: BP 118/72; PULSE 86; RESP 16; TEMP 36.9; O2SAT 96
== END 2024-12-07 19:09 | disposition home or self-care (01) ==
PROVIDERS: Physician Assistant Medical; Emergency Provider Emergency Medicine; PCP Internal Medicine
DX: R06.02 Shortness of breath (principal); E66.9 Obesity, unspecified; Z68.41 Body mass index [BMI] 40.0-44.9, adult; R10.9 Unspecified abdominal pain; E11.9 Type 2 diabetes mellitus without complications; I10 Essential (primary) hypertension; E78.00 Pure hypercholesterolemia, unspecified; Z79.4 Long term (current) use of insulin; Z79.82 Long term (current) use of aspirin; Z79.899 Other long term (current) drug therapy; Z79.85 Long-term (current) use of injectable non-insulin antidiabetic drugs
CPT/HCPCS: 36415; 71046; 76700; 80053; 81001; 81003; 83690; 83880; 84484; 85025; 86140; 87086; 93005; 99284

== ENCOUNTER → 2024-12-07 14:17 | Outpatient (BNV) | payer OTHER, SELFPAY | PROVIDERS: Emergency Provider Emergency Medicine; PCP Internal Medicine; Visit Provider Internal Medicine | DX: I45.10 Unspecified right bundle-branch block (principal) | CPT/HCPCS: 93010 ==

== ENCOUNTER → 2024-12-07 14:26 | Outpatient (BNV) | payer OTHER, SELFPAY | PROVIDERS: Emergency Provider Emergency Medicine; PCP Internal Medicine; Visit Provider Radiology Diagnostic Radiology | DX: R14.0 Abdominal distension (gaseous) (principal); R63.5 Abnormal weight gain; K76.0 Fatty (change of) liver, not elsewhere classified; N28.1 Cyst of kidney, acquired | CPT/HCPCS: 76700 ==

== ENCOUNTER 2025-03-28 09:50 | Outpatient (AMB) | payer OTHER, SELFPAY ==
--- NOTE | 2025-03-28 09:53 | MHC.PC.OV ---
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 Patient c/o constipation, numbness of both legs and stomach feeling swollen. Patient also gets full quick after just eating a bite. Patient needs meds refill. Spark Plug Tester Required: No Allergies acetaminophen (From Percocet) Allergy (Severe, Verified 03/28/25 10:25) Nausea and Vomiting oxycodone (From Percocet) Allergy (Severe, Verified 03/28/25 10:25) Nausea and Vomiting tramadol Allergy (Severe, Verified 03/28/25 10:25) Nausea and Vomiting lisinopril Allergy (Unknown, Verified 03/28/25 10:25) Cough Penicillins (PENICILLINS) Allergy (Unknown, Verified 03/28/25 10:25) RASH,HIVES Penicillin Allergy (Unknown, Uncoded 03/28/25 10:06) Unknown Pt states no food allergies Allergy (Unknown, Uncoded 03/28/25 10:06) Unknown Medication List - Last Reconciled 03/29/25 by INGRID Whitaker- aspirin 1 tab PO DAILY atorvastatin 80 mg PO DAILY carvedilol 12.5 mg PO BID cholecalciferol (vitamin D3) 50 mcg PO DAILY cyclobenzaprine 10 mg PO DAILY flash glucose sensor (FreeStyle Jennifer 2 Sensor kit) As directed fluticasone propionate 50 mcg/actuation 2 sprays intranasal DAILY insulin glargine U-300 conc (Toujeo Max U-300 SoloStar) units subcut insulin lispro 35 - 45 units subcut TID ipratropium-albuterol 0.5 mg-3 mg(2.5 mg base)/3 mL 1 mL PO Q8H PRN levothyroxine 75 mcg PO DAILY nitroglycerin 0.4 mg sublingual omeprazole 20 mg PO DAILY pen needle, diabetic (Unifine Pentips Plus) As directed tirzepatide (Mounjaro) 5 mg (0.5 mL) subcut QWEEK Held on 03/28/25. Instructions: Doctor's Order valsartan-hydrochlorothiazide 160-25 mg 1 tab PO DAILY Tobacco use date assessed: 03/28/25 Fall risk assessment: 2 + Falls in past year (more than 15 falls in a year) Last assessed Fall Risk: 03/28/25 Dental Screening Dental Screen Date: 03/28/25 Did you have a dental visit in the last 12 months?: Yes Did you have a dental problem in the last 6 months where you did not have access to dental care?: No Was dental information given to patient?: Patient has dentist HPI HPI Comments History of Present Illness Details 64 y/o F with DM2 with complication, Obesity, incomplete right bundle-branch block, bilat renal cysts, HTN, GERD, Hepatic steatosis, JANIE, MDD, chronic low back pain, peripheral neuropathy, Atherosclerosis BLE s/p dinorah, foot surgery Health Maintenance: Colon has never had one Mammo ordered today, due 05/2025 DEXA has never had one, ordered today PAP 2021 Tdap 2018 Specialists: [facility], reports DM Eye exam 2023 [facility] History of Present Illness - The patient is a 64-year-old female presenting for establishment of care for management of multiple chronic conditions & for CPE - Here today w/ Dtr., Anastasiia; Limited MR julian from [facility] ED, reviewed - Obesity with BMI of 45 - Hyperlipidemia managed with atorvastatin - Hypothyroidism treated with levothyroxine - Chronic GERD managed with esomeprazole - Essential hypertension treated with valsartan-hydrochlorothiazide - Type 2 diabetes managed with Toujeo, Lispro, and Mounjaro, uses CGM Does not have device with her for me to review. A1c 7.5% today. States DME about 1 year ago, hx of bleeding in R eye w injections that she could not tolerate so stopped; she will make annual appt and i fifi request records to review - History of incomplete right bundle branch block, was ff'd by [facility] in the past - hepatic steatosis, constant GI gas, feels full. 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 - Neuropathy from diabetes; numbness and sensory loss in feet - Anxiety and depression reported but declined treatment. Denies SI/HI. - Dtr reports w/c bound; she provides ADL support; cannot walk unassisted; has Tempus. Active w/ [facility] for chronic back pain with bilat radicular sx, reports imaging ordered but not completed yet. Social History - Patient lives in a multi-level home but is functionally limited due to knee pain and neuropathy. - Requires wheelchair use 31/03; physical impairments impact daily tasks. - No professional physical therapy received yet; BIT SETTER services assist with mobility. Health Maintenance - Routine Pap smear previously discussed. - Mammogram and bone density testing scheduled for May. - Colonoscopy and gastroenterology referral planned due to bloating and hepatic steatosis. - Annual eye examination for diabetes-related vision checking. - Physical therapy discussed for home-based care. - Blood work to update on kidney function. Review of Systems - Cardiovascular: Denies any regular cardiology visit, follows medication regimen for hypertension. - Endocrine: Reports diabetes and managed with medications, neuropathy with significant functional limitation. - Neurological: Reports pain and mobility issues due to knee and nerve complications. - Gastrointestinal: Reports bloating, full-feeling, possible medication side effect. - Musculoskeletal: Reports inability to walk unaided due to knee pain. - Mental Health: Reports anxiety and depression, no current counseling. Physical Exam performed in w/c as she is not able to get onto exam table. General: Well developed, well nourished, in no acute distress. Appears stated age. Sitting in w/c Head: Normocephalic, atraumatic. Eyes: Pupils are equal, round and reactive to light and accommodation. Conjunctivae are clear. Vision grossly normal. Ears: TMs clear AU, EACS WNL Nose: Patent, without discharge. Neck: Supple, no adenopathy or thyromegaly. Breast: Edu on SBE. Lungs: Clear to auscultation bilaterally. No rales, rhonchi or wheeze noted. Good air flow in all mayo. Heart: Regular rate and rhythm. No murmurs, click, rubs or gallops are noted. Abdomen: Bowel sounds present in all quadrants. The abdomen is soft, nontender, very hard to appreciate any masses, hernias or organomegaly given body habitus. : Deferred. Reviewed recommendations for routine PHARMACY ASSOCIATE. Pulses: Peripheral pulses are equally decreased and palpable bilaterally. Extremities: No clubbing, cyanosis nor edema is noted. Hairless, chronic vascular changes noted to bilat lower ext below knees. Abnormal monofilament and vibratory sensation bilat, sunungal hematoma L great toe and ulcer noted to R great toe - see picture below. Neurologic: Gait and station normal. Cranial Nerves 2-12 intact. Motor strength grossly symmetrical and intact. Very LROM BLE, abnormal proprioception BLE Skin: No rashes, ulcers, or lesions noted. Turgor is good. Skin color is good. Hair and nails are without abnormalities. Psych: Normal eye contact, affect and mood appropriate, and normal interactions. Results - Labs: Hemoglobin A1c 7.5% Discussion Notes I discussed with the patient her current diagnoses and treatment plans, emphasizing the importance of continued management for her chronic conditions. I explained the likelihood that her gastrointestinal complaints could be associated with the GLP-1 medication and advised holding Mounjaro for two weeks to evaluate improvement in symptoms. Referrals for gastroenterology, nephrology, cardiology, and podiatry were discussed and agreed upon. I recommended using home physical therapy services to improve mobility, and the patient consented to initiate this. Additionally, we discussed the necessity for annual eye exams to monitor diabetic retinopathy. I also counseled the patient on scheduling a mammogram with bone density testing and a colonoscopy to ensure comprehensive health maintenance. I provided instructions to follow up after two weeks of adjusted medication, emphasizing the potential increase in blood sugar levels and reassuring safety during this period. Assessment and Plan 1. Type 2 Diabetes Mellitus - Hold Mounjaro, monitor sugars - Endocrinology referral - cont all other meds - DM eye annual Eye and [facility] [place] 2. Obesity - Weight management strategy, consider referral in future 3. Hypertension - Continue current regimen 4. Hyperlipidemia - Maintain atorvastatin 5. Hypothyroidism - Continue levothyroxine 6. GERD - Continue esomeprazole 7. Hepatic Steatosis - Gastroenterology referral 8. Bilateral Renal Cysts - Nephrology referral 9. Neuropathy - Physical therapy at home - [facility] PRN 10. Anxiety and Depression - No counseling - declined. Labs today Cont care w/ [facility] DME Wheelchair RX sent to Nurses Patient Instructions - Stop Mounjaro for two weeks; monitor sugar levels. - Keep track of symptoms and report changes. - Attend all referrals for specialists. - Use wheelchair and any assistive devices as needed. - Continue current medications for blood pressure and cholesterol. - Be active within ability; aim to improve mobility with therapy. - Drink plenty of fluids and maintain a healthy diet. - Schedule and attend all health maintenance exams and tests. - Call if any new symptoms occur or conditions worsen. Consent Patient was informed and verbally consented to the use of an ambient scribe for clinic note documentation during this visit. An additional 52 minutes was spent addressing the problem(s) noted at todays visit. This includes time spent before the visit reviewing the chart, time spent during the visit, and time spent after the visit on documentation reviewing laboratory results, diagnostic imaging, medications, performing a medically necessary evaluation, counseling on diagnoses, care coordination, ordering appropriate tests, ordering appropriate medications, review of tests performed by other providers, reporting test results with the patient, communication with other healthcare providers. [facility] Medical History (Updated 03/29/25 @ 14:48 by Janet Danielson [facility]) Allergies Anxiety and depression Arthritis Asthma Back pain Diabetes GERD (gastroesophageal reflux disease) Hypercholesteremia Hypertension Hyperthyroidism Kidney disease Palpitations Sinusitis Spine disorder Tachyarrhythmia Thyroid disorder Surgical History Hx of cholecystectomy Hx of foot surgery Family History (Updated 03/28/25 @ 10:25 by Bita Franks MA) Father Diabetes HTN (hypertension) Cancer Mother Diabetes HTN (hypertension) Asthma High cholesterol Cardiovascular disease Cancer Social History (Updated 03/28/25 @ 10:20 by Bita Franks MA) Household Members: Family, None and Other Household Members Other:: Grandaughter Both parents involved: No Caregiver staying overnight: No Housing: Apartment Are you a primary pet care technician to a significant other at home: No Do you presently have visiting nurse or other home services: No 75 years or older and lives alone: No Alcohol intake: former Patient Tobacco Use Status: Never used Tobacco e-Cigarette/Vaping Use: Never Used Second Hand Smoke Exposure: No Current occupational status: disabled Sexual orientation: Straight/Heterosexual Gender identity: Female Cognitive needs: No Hearing needs: No Vision needs: No Female Reproductive History Menstrual Age of Menarche: 12 Questionnaire PHQ-9 Over the last 2 weeks, how often have you been bothered by any of the following problems? 1. Little interest or pleasure in doing things: more than half the days 2. Feeling down, depressed, or hopeless: more than half the days 3. Trouble falling or staying asleep, or sleeping too much: more than half the days 4. Feeling tired or having little energy: several days 5. Poor appetite or overeating: more than half the days 6. Feeling bad about yourself - or that you are a failure or have let yourself or your family down: more than half the days 7. Trouble concentrating on things, such as reading the newspaper or watching television: several days 8. Moving or speaking so slowly that other people could have noticed. Or the opposite - being so fidgety or restless that you have been moving around a lot more than usual: several days 9. Thoughts that you would be better off or of hurting yourself in some way: more than half the days Total score: 15 Depression Screening Interpretation: Positive Depression Screening Follow-up: Existing condition and Declines treatment Depression Screening Done: Yes 95568 - PHQ-9 Billing: Yes Source: Developed by Drs. Marquise Martínez, Germania Taylor, Joe Kilpatrick and colleagues, with an educational sean from [employer]. Thrive Questionnaire Date Thrive assessed: 03/28/25 I am a: Patient What is your living situation today?: I have a steady place to live Within the past 12 months, did the food you bought not last and you didn't have the money to get more?: Never true Within the past 12 months, did you worry whether your food would run out before you got money to buy more?: Never true Do you have trouble paying for medicines?: No Do you have trouble getting transportation to medical appointments?: No Do you have trouble paying your heating and electricity bill?: No Do you have trouble taking care of your child, family member or friend?: No Do you have trouble with day-to-day activities such as bathing, preparing meals, shopping, managing finances, etc.?: Yes Are you currently unemployed and looking for a job?: No Are you interested in more education?: No Please select the resources that you would like help with: None Currently or been in a relationship where the following occur: No concerns reported THRIVE Score: 0 AUDIT C Alcohol Use Questionnaire (AUDIT-C) 1. How often do you have a drink containing alcohol?: Never 3. How often do you have six or more drinks on one occasion?: Never Total Score: 0 Score Reviewed/Action Taken: Yes JANIE-7 AMB Questionnaire JANIE-7 Date JANIE - 7 assessed: 03/28/25 Feeling nervous, anxious, or on edge: 3 = Nearly every day Not being able to stop or control worryin = More than half the days Worrying too much about different things: 2 = More than half the days Trouble relaxin = More than half the days Being so restless that it is hard to sit still: 0 = Not at all Becoming easily annoyed or irritable: 2 = More than half the days Feeling afraid as if something awful might happen: 1 = Several days Total JANIE-7 score (0-4 normal; 5-9 mild; 10-14 moderate; 15-21 severe): 12 Source: Developed by Drs. Marquise Martínez, Germania Taylor, Joe Kilpatrick and colleagues, with an educational sean from [employer]. JANIE-7 Assessment Billing JANIE-7 Assessment Tool: JANIE-7 Assessment 28612 Physical exam (Primary Care) Vital Signs: Last Vital Signs Temp 97.1 F 03/28/25 10:12 Pulse 88 03/28/25 10:12 Resp 12 03/28/25 10:12 BP 122/70 03/28/25 10:12 Pulse Ox 99 03/28/25 10:12 Oxygen Delivery Method Room Air 03/28/25 10:12 BMI result Body Mass Index 45.0 BMI Assessment/Plan discussion: High BMI High, discussed plan: lifestyle Tobacco/Smoking Status: Tobacco use Status Tobacco use date assessed 03/28/25 03/28/25 10:01 Patient Tobacco Use Status Never used Tobacco 03/28/25 10:20 e-Cigarette/Vaping Use Never Used 03/28/25 10:20 PHQ-9: PHQ-9 Score PHQ-9: Total score 15 03/29/25 11:52 Depression Screening Interpretation: Positive Depression Screening Follow-up: Existing condition and Declines treatment Thrive Assessment: Date of Thrive Assessment Date Thrive assessed 03/28/25 03/28/25 10:25 Currently or been in a relationship where the following occur: No concerns reported Office Procedures Diabetic Foot Exam Details: ABNORMAL VIBRATORY AND MONOFILAMENT TESITNG BILAT G9226 - Diabetic Foot Exam Results AMB Hemoglobin A1c AMB Hemoglobin A1c 7.5 % Last Edit by Bita Franks MA on 03/28/25 10:27 Results Reviewed Results Reviewed: Laboratory Last Values Hgb A1c (Clinic) 7.5 % (4.0-6.0) H 03/28/25 10:19 RUN: 03/29/25 1445 PAGE 1 [facility] [address] [place] [id number] Nursing Coordinator: Mesfin Vaz M.D. Specimen Inquiry Name: Ginny Sears Age/Sex: 64/F : 1960 Unit#: [id number] Attend Dr: Janet Danielson Re03/28/25 Status: DEP [facility]F [facility] Disch: SPEC : [id number] FLORENCIO: 03/28/25-1110 STATUS: COMP REQ : [id number] RECD: 03/28/25-[address]: Janet Danielson COMP: 03/28/25-110 ENTERED: 03/28/25-110 [facility] DR: ORDERED: CBC No Diff Test Result Flag Reference WBC 7.1 4.8-10.8 X10*3/uL RBC 4.44 4.20-5.50 X10*6/uL HGB 12.8 12.0-16.0 g/dl HCT 38.4 37.0-47.0 % MCV 86.5 80.0-98.0 fL MCH 28.8 27.0-33.0 pg MCHC 33.3 31.0-35.0 g/dl RDW 14.5 11.0-16.0 % PLT 344 160-400 X10*3/uL MPV 8.9 L 9.4-12.3 fL NRBC Pct Auto 0.0 0.0-0.2 /100WBC NRBC Abs Auto 0.000 0.0-0.012 X10*3/uL RUN: 03/29/25 1445 PAGE 1 [facility] [address] [place] [phone] Nursing Coordinator: Mesfin Vaz M.D. Specimen Inquiry Name: Ginny Sears Age/Sex: 64/F : 1960 Unit#: [id number] Attend Dr: Janet DanielsonPDwight Re03/28/25 Status: DEP REF [facility] Disch: SPEC : [id number] FLORENCIO: 03/28/25-1110 STATUS: COMP REQ : [id number] RECD: 03/28/25-[address]: Janet Danielson [facility] COMP: 03/28/25-1456 ENTERED: 03/28/25-[address]: ORDERED: CMP, IRON PROF, Lipid Panel, Vitamin D 25-OH, TSH Rflx Test Result Flag Reference Sodium 138 135-145 mmol/L Potassium 4.0 3.3-5.1 mmol/L CL 103 96-108 mmol/L CO2 27 22-29 mmol/L Gap 12 12-20 BUN 22 H 9-16 mg/dL Creat 1.18 0.5-1.4 mg/dL eGFR 46 Chronic Kidney Disease: Estimated GFR < 60 mL/min/1.73m2 Severe Kidney Disease: Estimated GFR < 15 mL/min/1.73m2 Glucose, Random 172 H 60-115 mg/dL CA 9.5 8.4-10.2 mg/dL Iron 58 30-160 mcg/dL TIBC 265 228-428 mcg/dL Saturation 22 15-50 % UIBC 207 ug/dL Total Bili 0.3 0.0-1.0 mg/dL AST (GOT) 29 5-31 U/L ALT (GPT) 34 H 0-31 U/L Protein, Total 7.4 6.5-8.0 g/dL Alb 4.2 3.5-5.0 g/dL Triglyceride 395 H <150 mg/dL Desirable Triglyceride: less than 150 mg/dL Borderline High Triglyceride 150-199 mg/dL High Triglyceride: 200-499 mg/dL Very High Triglyceride: greater than or equal to 5OO mg/dL Cholesterol 172 <200 mg/dL Desirable Cholesterol: less than 200 mg/dL Borderline High Cholesterol: 200-239 mg/dL High Cholesterol: greater than 239 mg/dL LDL Calculated 60 <100 mg/dL Desirable LDL: less than 100 mg/dL Near Optimal/Above Optimal LDL: 110-129 mg/dL Borderline High LDL: 130-159 mg/dL High LDL: 160-189 mg/dL Very High LDL: greater than or equal to 190 mg/dL HDL 33 L >40 mg/dL Desirable HDL: greater than 40 mg/dL Note: This HDL assay may give artificially low results in patients with liver disease. Alk Phos 128 H 39-117 U/L Vitamin D 25-OH 23.7 L >30 ng/mL Health Based Reference Values* < 20 ng/mL Deficient 20-30 ng/mL Insufficient > 30 ng/mL Sufficient *Armand HARP. N Engl J Med. 2007;357:266-280 There is no well-established upper level of normal vitamin D levels. Some laboratories use 50 ng/mL as an upper limit of normal. However, toxicity is patient-dependent and may occur at any level. Careful correlation with the patient's presentation is necessary and, if there is concern for vitamin D toxicity, treatment should be considered irrespective of the serum level. Care must be taken in interpreting Vitamin D results from different laboratories and methodologies. Published data demonstrated that results from patients undergoing hemodialysis may show a negative bias when tested with various automated 25-OH vitamin D assays when compared to LC-MS/MS. When testing samples from patients whose predominant form of Vitamin D is Vitamin D2, such as patients receiving Vitamin D2 supplementation, results that are subtherapeutic should be confirmed with another method such as LC-MS/MS. TSH 1.48 0.32-4.0 uIU/mL END OF REPORT END OF REPORT RUN: 03/29/25 1446 PAGE 1 [facility] [address] [place] [phone] Nursing Coordinator: Mesfin Vaz M.D. Specimen Inquiry Name: Ginny Sears Age/Sex: 64/F : 1960 Unit#: [id number] Attend Dr: Janet Danielson TICKET SELLER-BC Re03/28/25 Status: DEP [facility]F [facility] Disch: SPEC : [id number] FLORENCIO: 03/28/25-1110 STATUS: COMP REQ : [id number] RECD: 03/28/25-[address]: Janet Danielson [facility]- COMP: 03/28/25-1447 ENTERED: 03/28/25-1102 [facility] DR: ORDERED: MICARU Test Result Flag Reference Creat, Ur 56.63 mg/dL Microalbumin Ur 7.0 mg/L Alb/Creat Ratio 12.3 <30 ug/mg cr Albumin/Creatinine Ratio Reference Ranges: Normal: < 30 ug/mg creatinine Microalbuminuria: 30 - 300 ug/mg creatinine Clinical Albuminuria: > 300 ug/mg creatinine END OF REPORT Coding Level of Care Code New Pt Level 5 (63897) New Pt Prev Care 40-64y(71343) Diagnoses Encounter to establish care Z76.89 Encounter for general adult medical examination with abnormal findings Z00.01 Obesity, morbid, BMI 40.0-49.9 E66.01 Diabetes mellitus type 2, with complication, on intermission coordinator insulin pump E11.8; Z96.41 Bilateral renal cysts N28.1 Incomplete right bundle branch block I45.10 Hepatic steatosis K76.0 Acquired hypothyroidism E03.9 Hypothyroidism type: acquired Hyperlipidemia associated with type 2 diabetes mellitus E11.69; E78.5 Chronic GERD K21.9 Early satiety R68.81 Weakness of both lower extremities R29.898 Laterality: bilateral MDD (major depressive disorder), recurrent episode, mild F33.0 JANIE (generalized anxiety disorder) F41.1 Laboratory exam ordered as part of routine general medical examination Z00.00 Diabetic mononeuropathy associated with type 2 diabetes mellitus E11.41 Diabetes mellitus type: type 2 Diabetes mellitus complication detail: diabetic mononeuropathy Atherosclerosis of [place] artery of right lower extremity with ulceration of other part of foot I70.235 Peripheral atherosclerosis location: lower extremity Peripheral atherosclerosis artery type: [place] artery Laterality: right Lower extremity ulceration location: other part of foot CKD stage 3 secondary to diabetes E11.22; N18.30 Hypertension due to endocrine disorder I15.2 Hypertension type: secondary to endocrine disorders Vitamin D deficiency E55.9 CPT Codes Diabetic Foot Exam - CPT: G9226 - Diabetic Foot Exam ([id number]) Additional Codes JANIE-7 Assessment Billing - JANIE-7 Assessment Tool: JANIE-7 Assessment [id number] ([id number]) PHQ-9 - 33716 - PHQ-9 Billing: Yes ([id number]) Assessment & Plan Assessment & Plan (1) Encounter to establish care: Code(s): Z76.89 - Persons encountering health services in other specified circumstances (2) Encounter for general adult medical examination with abnormal findings: Onset Date: ~03/28/25 Code(s): Z00.01 - Encounter for general adult medical examination with abnormal findings Category: Medical (3) Obesity, morbid, BMI 40.0-49.9: Code(s): E66.01 - Morbid (severe) obesity due to excess calories Category: Medical (4) Diabetes mellitus type 2, with complication, on retirement insulin pump: Code(s): E11.8 - Type 2 diabetes mellitus with unspecified complications; Z96.41 - Presence of insulin pump (external) (internal) Category: Medical (5) Bilateral renal cysts: Code(s): N28.1 - Cyst of kidney, acquired Category: Medical (6) Incomplete right bundle branch block: Code(s): I45.10 - Unspecified right bundle-branch block Category: Medical (7) Hepatic steatosis: Code(s): K76.0 - Fatty (change of) liver, not elsewhere classified Category: Medical (8) Hypothyroid: Code(s): E03.9 - Hypothyroidism, unspecified Category: Medical Qualifiers: Hypothyroidism type: acquired Qualified Code(s): E03.9 - Hypothyroidism, unspecified (9) Hyperlipidemia associated with type 2 diabetes mellitus: Code(s): E11.69 - Type 2 diabetes mellitus with other specified complication; E78.5 - Hyperlipidemia, unspecified Category: Medical (10) Chronic GERD: Code(s): K21.9 - Gastro-esophageal reflux disease without esophagitis Category: Medical (11) Early satiety: Code(s): R68.81 - Early satiety Category: Medical (12) Lower extremity weakness: Comment: managed by [facility] states imaging ordered and pending Code(s): R29.898 - Other symptoms and signs involving the musculoskeletal system Category: Medical Qualifiers: Laterality: bilateral Qualified Code(s): R29.898 - Other symptoms and signs involving the musculoskeletal system (13) MDD (major depressive disorder), recurrent episode, mild: Code(s): F33.0 - Major depressive disorder, recurrent, mild Category: Medical (14) JANIE (generalized anxiety disorder): Code(s): F41.1 - Generalized anxiety disorder Category: Medical (15) Laboratory exam ordered as part of routine general medical examination: Code(s): Z00.00 - Encounter for general adult medical examination without abnormal findings Category: Medical (16) Diabetic neuropathy: Code(s): E11.40 - Type 2 diabetes mellitus with diabetic neuropathy, unspecified Category: Medical Qualifiers: Diabetes mellitus type: type 2 Diabetes mellitus complication detail: diabetic mononeuropathy Qualified Code(s): E11.41 - Type 2 diabetes mellitus with diabetic mononeuropathy (17) Atherosclerosis of extremity with ulceration: Code(s): I70.209 - Unspecified atherosclerosis of [place] arteries of extremities, unspecified extremity; L98.499 - Non-pressure chronic ulcer of skin of other sites with unspecified severity Category: Medical Qualifiers: Peripheral atherosclerosis location: lower extremity Peripheral atherosclerosis artery type: [place] band artery Laterality: right Lower extremity ulceration location: other part of foot Qualified Code(s): I70.235 - Atherosclerosis of [place] arteries of right leg with ulceration of other part of foot (18) CKD stage 3 secondary to diabetes: Comment: EGFR 46 Code(s): E11.22 - Type 2 diabetes mellitus with diabetic chronic kidney disease; N18.30 - Chronic kidney disease, stage 3 unspecified Category: Medical (19) Hypertension: Code(s): I10 - Essential (primary) hypertension Category: Medical Qualifiers: Hypertension type: secondary to endocrine disorders Qualified Code(s): I15.2 - Hypertension secondary to endocrine disorders (20) Vitamin D deficiency: Code(s): E55.9 - Vitamin D deficiency, unspecified Category: Medical Plan . Orders: Orders XR DEXA axial skeleton 03/28/25 Z13.820 - Encounter for screening for osteoporosis Comprehensive Met. Panel 03/28/25 Z. - Encounter for general adult medical examination without abnormal findings Lipid Panel 03/28/25 Z. - Encounter for general adult medical examination without abnormal findings IRON PROFILE 03/28/25 Z00.00 - Encounter for general adult medical examination without abnormal findings Microalbumin, Random (w Creat) 03/28/25 Z00.00 - Encounter for general adult medical examination without abnormal findings TSH reflex Free T4 03/28/25 Z00.00 - Encounter for general adult medical examination without abnormal findings AMB Hemoglobin A1c 03/28/25 Z13.9 - Encounter for screening, unspecified MM tomosynthesis screening BI 03/28/25 Z12.31 - Encounter for screening mammogram for malignant neoplasm of breast Complete Blood Count no Diff 03/28/25 Z00.00 - Encounter for general adult medical examination without abnormal findings Vitamin B12 and Folate 03/28/25 Z00.00 - Encounter for general adult medical examination without abnormal findings Vitamin D 25-OH Total 03/28/25 Z00.00 - Encounter for general adult medical examination without abnormal findings Parathyroid Hormone Intact 03/28/25 Z00.00 - Encounter for general adult medical examination without abnormal findings Referrals Gastroenterology Referral K21.9 - Gastro-esophageal reflux disease without esophagitis, K76.0 - Fatty (change of) liver, not elsewhere classified, R68.81 - Early satiety, Z12.11 - Encounter for screening for malignant neoplasm of colon Endocrinology Referral E03.9 - Hypothyroidism, unspecified, E11.8 - Type 2 diabetes mellitus with unspecified complications, E66.01 - Morbid (severe) obesity due to excess calories, Z96.41 - Presence of insulin pump (external) (internal) Cardiology Referral E11.69 - Type 2 diabetes mellitus with other specified complication, E78.5 - Hyperlipidemia, unspecified, I10 - Essential (primary) hypertension, I45.10 - Unspecified right bundle-branch block [facility] Referral E11.8 - Type 2 diabetes mellitus with unspecified complications, E66.01 - Morbid (severe) obesity due to excess calories, R29.898 - Other symptoms and signs involving the musculoskeletal system, Z96.41 - Presence of insulin pump (external) (internal) Podiatry Referral E11.40 - Type 2 diabetes mellitus with diabetic neuropathy, unspecified, E11.8 - Type 2 diabetes mellitus with unspecified complications, I70.209 - Unspecified atherosclerosis of [place] arteries of extremities, unspecified extremity, L98.499 - Non-pressure chronic ulcer of skin of other sites with unspecified severity, Z96.41 - Presence of insulin pump (external) (internal) Vascular Surgery Referral E11.40 - Type 2 diabetes mellitus with diabetic neuropathy, unspecified, E11.8 - Type 2 diabetes mellitus with unspecified complications, I70.209 - Unspecified atherosclerosis of [place] arteries of extremities, unspecified extremity, L98.499 - Non-pressure chronic ulcer of skin of other sites with unspecified severity, Z96.41 - Presence of insulin pump (external) (internal) Nephrology Referral E11.8 - Type 2 diabetes mellitus with unspecified complications, N28.1 - Cyst of kidney, acquired, Z96.41 - Presence of insulin pump (external) (internal) Medications: New carvedilol 12.5 mg PO BID 180 tabs 2RF valsartan-hydrochlorothiazide 160-25 mg 1 tab PO DAILY 90 tabs 2RF cholecalciferol (vitamin D3) 50 mcg PO DAILY 90 caps 2RF atorvastatin 80 mg PO DAILY 90 tabs 2RF levothyroxine 75 mcg PO DAILY 90 tabs 2RF omeprazole 20 mg PO DAILY 90 caps 2RF On Hold tirzepatide (Mounjaro) Hold Comment: Doctor's Order 5 mg (0.5 mL) subcut QWEEK 2 mL 0RF Patient Instructions: Walk-In Care (Urgent Care): We Make it Easy Walk-in for urgent medical issues such as: ? Seasonal Allergies ? Insect Bites ? Cough ? Diarrhea ? Acute Asthma Attacks ? Back, Knee or Joint Pain ? Ear Infection ? Fever without a Rash ? Headaches ? Nausea ? [place], Rash or Skin Irritation ? Sore Throat ? Sports Physicals ? Vomiting Most insurances are accepted. Patients do not need to be part of the [facility] to seek care at the walk-in clinic. Locations [address] [place] [address] , [place] [address] ? [phone] [facility] Walk-In Care in [place] provides services to ages 18 and over. Open Friday-Friday: 8 a.m. to 5 p.m. and Friday: 9 a.m. to 3 p.m.* *Hours may vary due to staffing availability. To confirm Walk-In Care hours in [place], please call [phone]. [address] [place] [address] ? [phone] [facility] Walk-In Care in [place] provides services to ages 12 and over. Open Friday-Friday: 8 a.m. to 5 p.m. Hours may vary due to staffing availability. To confirm Walk-In Care hours in [place], please call [phone]. LABORATORY SERVICES: [facility] ? Primary Location [address] [facility] Friday through Friday 6:00 AM ? 5:00 PM Friday 7:00 AM ? 11:00 AM* [phone] The [facility] is centrally located near the front entrance of the [facility] for easy outpatient access. Convenient parking is provided for outpatients. *Hours may vary due to staffing availability. To confirm Laboratory hours for any location, please call [phone]. Offsite Location For your convenience, we offer offsite laboratory draw stations at the following locations: [address] [place] [address] ? [facility] [address], [address] Friday through Friday 7:30 AM ? 1:00 PM* [phone] *Hours may vary due to staffing availability. To confirm Laboratory hours for any location, please call [phone]. [place] ? [address] Friday through Friday 6:00 AM ? 3:30 PM* Friday 6:30 AM ? 3 PM* [phone] *Hours may vary due to staffing availability. To confirm Laboratory hours for any location, please call [phone] [place] [address] Friday through Friday 7:30 AM ? 4:00 PM* [phone] *Hours may vary due to staffing availability. To confirm Laboratory hours for any location, please call [phone] [place] [address] Friday through 9:00 AM ? 4:00 PM* *Hours may vary due to staffing availability. To confirm Laboratory hours for any location, please call [phone]. Appointments are not necessary. Walk-ins are welcome. Like all the departments throughout the [facility], our Lab undergoes frequent reviews to ensure the quality and accuracy of test results, and our staff takes special pride in its status as a nationally accredited facility. Patient Portal: ONE PATIENT. ONE RECORD. BETTER CARE. [facility] has a fully integrated, cutting-edge mobile electronic health information system that has revolutionized the way we care for our patients and manage our organization. This system improves communication and coordination enabling us to provide safe, higher-quality care, and an overall positive experience for staff and patients. Our first priority, as always, is to deliver the highest quality care possible. The system is running in the background supporting that priority. This portal is for all [facility] services and practices. If you are experiencing any technical difficulties with enrolling or logging into the Patient Portal please complete the [facility] Patient Portal Technical Support Form. [facility] now offers a new secure on-line interactive tool for patients to review their health information ? ?Patient Portal. This interactive web portal will enable patients and their families to take an active role in their care by providing easy, secure access to their health information via the internet. The Patient Portal provides patients with instant access to their health information, including laboratory results, medications, allergies, demographic information, visit history, and more. In addition to managing their own care, parents and health care proxies with authorized consent will appreciate the ability to access the records of those individuals for whom they provide care. Please note: if you wish to gain access (Proxy) to another patient?s portal, you will be required to come to the Medical Records Department in person at [facility]. Both the patient giving proxy access and the proxy will need to provide photo identification and complete the appropriate authorization. The Patient Portal also allows track their appointments online. The [facility] Patient Portal also saves patients time by allowing them to submit updates to their demographic and contact information prior to their visits. Portal email notifications will also alert patients to any new activity on their portal, such as test results and new appointments. In order to initially enroll in the [facility] Patient Portal, you will need to enter some required information including the following: your [facility] Medical Record number your personal home email address name date of Please note: In order to enroll in the [facility] Patient Portal, we need to have your email address on file in your electronic medical record. ?The email address needs to be specific for one person (yourself) in order for your Portal enrollment to be successful. ?You can update your email address in person with our Registration staff when you are registering for a hospital visit. ?Otherwise, you will need to come to the Health Information Management (Medical Records) Department at [facility]. ?We are open from Friday ? Friday from 7:30 a.m. ? 4:30 p.m. ?You will be required to present a photo id. Once you have successfully enrolled in the Patient Portal, you will receive a one-time user id and password for the Portal, sent to your email address. ?This will allow you to log into the Patient Portal within 99 hrs and reset your own logon id and password, and define personal security questions. ?Once your permanent login and password have been set, you can log into the [facility] Patient Portal at any time via the blue button above or from the Portal Logon button on any page of the [facility] website. [facility] and [facility] encourage all of our patients to enroll in Patient Portal as it presents a valuable opportunity for patients and their families to actively participate in their care and stay healthy Welcome to [facility]. ?We look forward to working with you.
[2025-03-28 10:12] VITALS: BP 122/70; PULSE 88; RESP 12; TEMP 36.2; O2SAT 99; BMI 45.0
--- OUTSIDE RECORDS SUMMARY | 2025-03-28 10:33 | XMS_ITS | Clinical Summary ---
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
--- OUTSIDE RECORDS SUMMARY | 2025-03-28 10:33 | XMS_ITS | Clinical Summary ---
Author Organization [facility] [address] [place] [address] [place] [address] [place] [address] Phone Care Team Providers Care Ramp Flight Attendant Name Role Phone Maykel Worley MD Primary Care Provider [phone] Allergies Active Allergy Reactions Criticality Noted Date Comments Lisinopril 06/18/2007 cough Penicillins 01/21/2013 Medications nitroglycerin (NITROSTAT) 0.[address] 1 Tablet under the tongue every 5 minutes as needed for Chest pain. 03/18/20 24 Active capsaicin (Arthritis Pain Relief,capsaic,) 0.075 % cream APPLY A THIN FILM TO AFFECTED AREA(S) THREE TIMES A DAY FOR 2 WEEKS 03/02/20 24 Active carvediloL (COREG) 12.5 mg tablet Take 1 Tablet by mouth 2 Times Daily. 02/03/20 24 Active valsartan-hydroCH LOROthiazide (DIOVAN-HCT) 160-25 mg per tablet Take 1 Tablet by mouth daily. 02/03/20 24 Active levothyroxine (SYNTHROID, LEVOTHROID) 75 mcg tablet Take 1 Tablet by mouth daily. 02/03/20 24 Active fluticasone propionate (FLONASE) 50 mcg/actuation nasal spray 1 [place] by Each Nare route daily for 360 days. 02/03/20 24 Active lidocaine (ZTlido) 1.8 % adhesive patch,medicated Apply 1 Patch topically daily as needed (pain). Apply for no more than 12 hours in a 24 hour period. 01/01/20 24 Active flash glucose scanning reader (Klashyle Jennifer 2 [place]) misc 1 Device by Does not apply route continuous. 10/15/19 24 Active blood sugar diagnostic (FreeStyle Lite Strips) test strip Use to test blood sugar four times daily 02/07/20 23 Active fluticasone propionate (FLONASE) 50 mcg/actuation nasal spray 2 sprays each nostril once a day for 10 days. 05/31/20 22 Active FREESTYLE LANCETS MISC Test QID 10/22/19 22 Active ipratropium-albut Allan (DUONEB) 0.5-2.5 mg/3 mL nebulizer solution Take 1 mL by mouth every 8 hours as needed (SOB). 10/22/19 22 Active traZODone (DESYREL) 50 mg tablet TAKE ONE TABLET BY MOUTH DAILY AT BEDTIME 90 tablet 1 08/10/20 24 Active cholecalciferol (VITAMIN D-3) 50 mcg (2,000 unit) capsule TAKE ONE CAPSULE BY MOUTH EVERY DAY 90 capsule 1 08/10/20 24 Active Unifine Pentips Plus 31 gauge x 5/16 needle USE TO INJECT INSULIN 5 TIMES DAILY 500 each 1 08/10/20 24 Active aspirin 81 mg chewable tablet CHEW AND SWALLOW ONE TABLET BY MOUTH EVERY DAY 90 tablet 1 08/10/20 24 Active hydrOXYzine HCL (ATARAX) 25 mg tablet Take 1 tablet (25 mg total) by mouth every 8 (eight) hours if needed for anxiety. for anxiety 30 tablet 5 08/10/20 24 Active insulin glargine U-300 conc (Toujeo Max U-300 SoloStar) 300 unit/mL (3 mL) CONCENTRATED injection pen See Admin Instructions . Inject 120 units in AM and 90 units in PM 180 mL 1 09/22/19 25 Active DULoxetine (CYMBALTA) [address] capsule Take 1 capsule (30 mg total) by mouth 1 (one) time each day. Do not crush or chew. 30 capsule 11/10/19 25 Active pregabalin (LYRICA) 150 mg capsule Take 1 capsule (150 mg total) by mouth 2 (two) times a day. Max Daily Amount: 300 mg 60 each 5 12/07/19 25 025 Active insulin lispro (HumaLOG KwikPen) 100 unit/mL injection penIndications:Di abetes mellitus type 2 with neurological manifestations (CMS/HCC V24, CMS/HCC V28),Type 2 diabetes mellitus with retinopathy, with long-term current use of insulin, macular edema presence unspecified, unspecified laterality, unspecified retinopathy severi* ([facility] V24, [facility] V28),Type 2 diabetes mellitus with chronic kidney disease, with long-term current use of insulin, unspecified CKD stage ([facility] V24, [facility] V28) INJECT 35 TO 45 UNITS UNDER THE SKIN THREE TIMES DAILY BEFORE MEALS DIRECTED 135 mL 1 01/29/20 25 Active atorvastatin (LIPITOR) 80 mg tablet TAKE ONE TABLET BY MOUTH DAILY AT BEDTIME 90 tablet 1 02/04/20 25 Active flash glucose sensor (FreeStyle Jennifer 2 Sensor) kitIndications:Di abetes mellitus type 2 with neurological manifestations ([facility] V24, [facility] V28) Change every 14 days. 6 each 1 02/05/20 25 Active tirzepatide (Mounjaro) 5 mg/0.5 mL injectionIndicati ons:Diabetes mellitus type 2 with neurological manifestations ([facility] V24, [facility] V28) Inject 0.5 mL (5 mg total) under the skin every 7 (seven) days. 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 Vitamin B12 deficiency 10/21/2013 Vitamin D deficiency 10/21/2013 Diabetes mellitus type 2 wit h neurological manifestations ([facility] V24, [facility] V28) 05/18/2013 Overview (06/17/2024): Peripheral neuropathy (per office note, 04/30/12) and CTS Microalbuminuria 05/18/2013 Type 2 diabetes mellitus wit h eye manifestations ([facility] V24, [facility] V28) 05/18/2013 Overview (06/17/2024): Retinopathy per [facility] records Type II diabetes mellitus wi th renal manifestations ([facility] V24, [facility] V28) 05/18/2013 Overview (06/17/2024): Stage III CKD & microalbuminuria Venous insufficiency 05/25/2010 Anemia 10/21/2008 Carpal tunnel syndrome 06/21/2008 GERD (gastroesophageal reflux disease) 8 Anxiety 11/19/2007 Depression 10/29/2007 Ankle pain 09/30/2007 Overview (06/17/2024): H/o ORIF, after R ankle farcuture on 1989. Patient has recurrent pain with difficuties ambulating Insomnia 09/30/2007 Morbid obesity with BMI of 4 5.0-49.9, adult ([facility] V24, [facility] V28) 06/18/2007 Asthma 06/10/2007 Hyperlipidemia 06/10/2007 Hypothyroidism 06/10/2007 Encounters Date Type Department Care Team Description 02/02/2025 Telephone Adult Medicine [address] [phone] Maykel Worley MD Hospitalization/ER 01/08/2025 2:16 AM EDT - 01/08/2025 9:26 AM EDT Emergency [facility] Emergency [address] [place] [address] Abdominal pain, generalized (Primary Dx) Discharge Disposition: Home or Self Care from Last 3 Months Immunizations Name Administration Dates Next Due H1N1 Inj Preservative Free 08/11/2009 Influenza Quadravalent, MDCK , 0.5ml, preservative free (Flucelvax) 6mo and older 06/14/2022,06/30/2020,08/12/2019 Influenza Quadravalent, MDCK , 0.5ml, with preservative (Flucelvax) 6mo and older 06/12/2018,07/11/2017 Influenza trivalent, 0.5mL, preservative free (Fluarix; FluLaval; Fluzone) ages 6mo and older (Afluria) 3 years and older 08/08/2016,08/02/2014,05/19/2013,07/08,05/25/2010,05/29/2009,05/24/2008 ,06/18/2007 Pfizer SARS-CoV-2 COVID-19, mRNA, LNP-S, preservative free 12/30/2020 Pneumococcal polysaccharide 23 valent (Pneumovax 23) 2yo and older 06/29/2007 Td Tetanus diptheria (Tdvax) 7yo and older 08/12/2019 Tdap Tetanus diptheria acell ular pertussis (Boostrix; Adacel) 7yo and older 11/19/2007 Surgical History Surgery Date Site/Laterality Comments CHOLECYSTECTOMY PROCEDURE: CT LAPAROSCOPY SURG CHOLECYSTECTOMY OTHER SURGICAL HISTORY PROCEDURE: [...] 06/18/2007 D X:Essential hypertension, benign Morbid obesity ([facility] V24, [facility] V28) 06/18/2007 DX:Morbid obesity (HCC) Heart disease, unspecified 06/10/2007 DX:He art disease, unspecified Anemia 10/21/08 DX:Anemia DM (diabetes mellitus), type 2, uncontrolled, with renal complications 05/18/2013 DX:DM (diabetes mellitus), t ype 2, uncontrolled, with renal complications Hyperlipidemia 06/10/2007 DX:Hyperlipidemi a Diabetes mellitus type 2 wit h neurological manifestations ([facility] V24, [facility] V28) 05/18/2013 DX:Diabetes mellitus type 2 with neurological manifestations (HCC); COMMENT: PMH of carpal tunnel and neuropathy. Type 2 diabetes mellitus wit h eye manifestations (CMS/HCC V24, [facility] V28) 05/18/2013 DX:Type 2 diabetes mellitus with eye manifestations (HCC) Family History Medical History Relation Name Comments [...] Sign Reading Time Taken Comments Blood Pressure 133/66 01/08/2025 6:27 AM EDT Pulse 77 01/08/2025 6:27 AM EDT Temperature 36.9 C (98.4 F) 01/08/2025 6:27 AM EDT Respiratory Rate 20 01/08/2025 6:27 AM EDT Oxygen Saturation 96% 01/08/2025 6:27 AM EDT Inhaled Oxygen Concentration - - Weight 116 kg (255 lb) 01/08/2025 2:29 AM EDT Height 160 cm (5' 3 ) 01/08/2025 2:29 AM EDT Body Mass Index 45.17 01/08/2025 2:29 AM EDT Plan of Treatment Upcoming Encounters Date Type Department Care Team (Late st Contact Info) Description 04/06/2025 11:20 AM EDT Appointment Radiology Department - [address] [phone] 04/07/2025 11:00 AM EDT Office Visit Adult Medicine [address] [phone] Nicki Landis PA [address] [place] [phone] 06/17/2025 11:30 AM EDT Office Visit Adult Medicine [address] [phone] Maykel Worley MD [address] [place] [phone] Health Maintenance Due Date Last Done Comments Diabetes: Annual Foot Exam 1970 Zoster Vaccines (1 of 2) 11/15/1979 Pneumococcal Vaccine: 50+ Years (2 of 2 - PCV) 06/29/2008 06/29/2007 Cervical Cancer Screening: Pap Smear 03/03/2018 03/03/2015, 03/03/2015 RSV Immunization Adult Patients (1 - Risk 60-74 years 1-dose series) 2020 Colorectal Cancer Screening: Colonoscopy 08/17/2022 HIV Screening 08/17/2022 Social Influencers of Health Screening 08/17/2022 COVID-19 Vaccine ( season) 2024 05/06/2022, 01/20/2021, 12/30/2020 Depression Screening 09/08/2024 01/07/2024 Influenza Vaccine (#1) 2025 , 06/30/2020, 08/12/2019, Additional history exists Diabetes: Blood Sugar Control Test (HGBA1C) 06/07/2025 12/06/2024, 08/10/2024, 01/13/2024, Additional history exists Diabetes: Annual Retina Eye Exam 06/15/2025 06/15/2024 Diabetes: Annual Urine Albumin-Creatinine Ratio (uACR) 12/06/2025 12/06/2024, 01/13/2024 Diabetes: Annual GFR (Glomerular Filtration Rate) 01/08/2026 01/08/2025, 08/10/2024, 04/05/2024, Additional history exists Hypertension/CHF/CAD Annual BMP Blood Test 01/08/2026 01/08/2025, 08/10/2024, 04/05/2024, Additional history exists Breast Cancer Screening 03/30/2026 03/30/20 24, 03/30/2024, [...] age to complete this topic Meningococcal B Vaccine Aged Out No l onger eligible based on patient's age to complete this topic RSV Immunization Patients Under 20 months Aged Out No longer eligible based on patient's age to complete this topic Varicella Vaccines Aged Out No longer eligible based on patient's age to complete this topic Procedures Procedure Name Priority Date/Time Associated Diagnosis Comments XR ABDOMEN 2 VIEWS STAT 01/08/2025 6: 45 AM EDT [place] URINE CULTURE TUBE STAT 01/08/2025 4:15 AM EDT URINALYSIS WITH REFLEX MICROSCOPIC AND CULTURE STAT 01/08/2025 4:15 AM EDT CBC WITH AUTO DIFFERENTIAL STAT 01/08/2025 4:15 AM EDT URINALYSIS WITH REFLEX MICROSCOPIC AND CULTURE STAT 01/08/2025 4:15 AM EDT LIPASE STAT 01/08/2025 4:15 AM EDT COMPREHENSIVE METABOLIC PANEL STAT 01/08/2025 4:15 AM EDT CBC AND DIFFERENTIAL STAT 01/08/2025 4:15 AM EDT CULTURE URINE STAT 01/08/2025 4:15 AM EDT MICROALBUMIN CREATININE URINE RATIO Routine 12/06/2024 12:10 PM EDT Type 2 diabetes mellitus with chronic kidney disease, with long-term current use of insulin, unspecified CKD stage ([facility] V24, [facility] V28) HEMOGLOBIN A1C Routine 12/06/2024 12:10 PM EDT Type 2 diabetes mellitus with other diabetic kidney complication, with long-term current use of insulin ([facility] V24, [facility] V28) LIPID PANEL WITH REFLEX TO DIRECT LDL [...] Recently Relevant to Health Maintenance Results * XR Abdomen 2 Views (01/08/2025 6:45 AM EDT) Anatomical Region Laterality Modality Body Radiographic Carol ging 01/08/2025 7:59 AM EDT Impressions 01/08/2025 8:08 AM EDT FINDINGS/IMPRESSION: Nonobstructive bowel gas pattern. No free intraperitoneal air. Moderate stool throughout the colon. Lung bases are clear. Degenerative facet arthritis in the lower lumbar spine. Cholecystectomy clips. -------- FINAL REPORT -------- Dictated By: AGUILA LINTON Dictated Date: 01/08/2025 07:59 ET Assigned Physician: AGUILA LINTON Reviewed and Electronically Signed By: AGUILA LINTON Signed Date: 01/08/2025 08:08 ET Workstation ID: [id number] Transcribed By: Self Edit Transcribed Date: 01/08/2025 07:59 ET Narrative 01/08/2025 8:08 AM EDT XR ABDOMEN 2 VIEWS INDICATION: Pain, small bowel obstruction TECHNIQUE: XR ABDOMEN 2 VIEWS COMPARISON: No priors available. Procedure Note Aguila Linton MD - 01/08/2025 XR ABDOMEN 2 VIEWS INDICATION: Pain, small bowel obstruction TECHNIQUE: XR ABDOMEN 2 VIEWS COMPARISON: No priors available. IMPRESSION: FINDINGS/IMPRESSION: Nonobstructive bowel gas pattern. No freeintraperitoneal air. Moderate stool throughout the colon. Lung bases areclear. Degenerative facet arthritis in the lower lumbar spine.Cholecystectomy clips. -------- FINAL REPORT -------- Dictated By: AGUILA LINTON Dictated Date: 01/08/2025 07:59 ET Assigned Physician: AGUILA LINTON Reviewed and Electronically Signed By: AGUILA LINTON Signed Date: 01/08/2025 08:08 ET Workstation ID: [id number] Transcribed By: Self Edit Transcribed Date: 01/08/2025 07:59 ET Rose LOZANO IMG XR PROCEDURES Final Result * (ABNORMAL) Urinalysis with reflex microscopic and culture (01/08/2025 4:15 AM EDT) Specific Pepin Urine 1.013 1.003 - 1.030 LAB URINALYSIS - AUTOMATED METHOD 01/08/2025 4:33 AM EDT [facility] pH, Urine 6.0 5.0 - 8.0 pH LAB URINALYSIS - AUTOMATED METHOD 01/08/2025 4:33 AM EDT [facility] Leukocytes, Urine Large(A) Negative LAB URINALYSIS - AUTOMATED METHOD 01/08/2025 4:33 AM [facility] Nitrite, Urine Negative Negative LAB URINALYSIS - AUTOMATED METHOD 01/08/2025 4:33 AM [facility] Protein, Urine Trace <=Trace mg/dL LAB URINALYSIS - AUTOMATED METHOD 01/08/2025 4:33 AM [facility] Glucose, Urine Negative Negative mg/dL LAB URINALYSIS - AUTOMATED METHOD 01/08/2025 4:33 AM [facility] Ketones, Urine Negative Negative mg/dL LAB URINALYSIS - AUTOMATED METHOD 01/08/2025 4:33 AM [facility] Urobilinogen , Urine 0.2 0.2 - 1.0 mg/dL LAB URINALYSIS - AUTOMATED METHOD 01/08/2025 4:33 AM [facility] Bilirubin, Urine Negative Negative LAB URINALYSIS - AUTOMATED METHOD 01/08/2025 4:33 AM [facility] Blood, Urine Negative Negative LAB URINALYSIS - AUTOMATED METHOD 01/08/2025 4:33 AM [facility] RBC, Urine 0.8 0 - 4 /HPF LAB URINALYSIS - AUTOMATED METHOD 01/08/2025 4:33 AM [facility] WBC, Urine 38.5(H) 0 - 4 /HPF LAB URINALYSIS - AUTOMATED METHOD 01/08/2025 4:33 AM [facility] Squamous Epithelial, Urine 17 0 - 60 /LPF LAB URINALYSIS - AUTOMATED METHOD 01/08/2025 4:33 AM [facility] Bacteria, Urine Moderate(A) Negative /HPF LAB URINALYSIS - AUTOMATED METHOD 01/08/2025 4:33 AM [facility] Hyaline Casts, Urine 1.2 0 - 3 /LPF LAB URINALYSIS - AUTOMATED METHOD 01/08/2025 4:33 AM [facility] Urine Urine specimen obtained by clean catch procedure / Unknown Non-blood Collection / Unknown 01/08/2025 4:15 AM EDT 01/08/2025 4:24 AM EDT Rose LOZANO LAB URINE ORDERABLES Final Resul t Performing Organization Address [facility]/ZIP Co de Phone Number [facility] [address] [place] [address], [place] [phone] * [place] urine culture tube (01/08/2025 4:15 AM EDT) Extra Tube Hold for add-ons. 01/08/2025 6:01 AM EDT [facility] Comment:Auto resulted. Urine Urine specimen obtained by clean catch procedure / Unknown Non-blood Collection / Unknown 01/08/2025 4:15 AM EDT 01/08/2025 4:24 AM EDT Rose LOZANO LAB URINE ORDERABLES Final Resul t Performing Organization Address [facility] de Phone Number [facility] [address] [place] [address], [place] [phone] * (ABNORMAL) CBC auto differential (01/08/2025 4:15 AM EDT) WBC 11.3(H) 4.8 - 10.8 K/mcL LAB HEMETOLOGY METHOD 01/08/2025 4:29 AM EDT [facility] RBC 4.30 3.80 - 4.80 M/[facility] LAB HEMETOLOGY METHOD 01/08/2025 4:29 AM EDT [facility] Hemoglobin 12.4 11.5 - 16.0 g/dL LAB HEMETOLOGY METHOD 01/08/2025 4:29 AM EDT [facility] Hematocrit 37.9 35.0 - 47.0 % LAB HEMETOLOGY METHOD 01/08/2025 4:29 AM [facility] MCV 87.7 79.0 - 98.0 FL LAB HEMETOLOGY METHOD 01/08/2025 4:29 AM [facility] MCH 28.7 27.0 - 32.0 pcg LAB HEMETOLOGY METHOD 01/08/2025 4:29 AM [facility] MCHC 32.7 32.0 - 37.0 g/dL LAB HEMETOLOGY METHOD 01/08/2025 4:29 AM [facility] RDW 13.6 11.0 - 15.0 % LAB HEMETOLOGY METHOD 01/08/2025 4:29 AM [facility] Platelets 333 130 - 400 K/mcL LAB HEMETOLOGY METHOD 01/08/2025 4:29 AM [facility] MPV 9.1 7.0 - 11.0 FL LAB HEMETOLOGY METHOD 01/08/2025 4:29 AM [facility] NRBC 0.0 <1.0 % LAB HEMETOLOGY METHOD 01/08/2025 4:29 AM [facility] NRBC Absolute 0.00 <0.10 K/mcL LAB HEMETOLOGY METHOD 01/08/2025 4:29 AM [facility] Neutrophils Relative 63.6 % LAB HEMETOLOGY METHOD 01/08/2025 4:29 AM [facility] Lymphocytes Relative 26.7 % LAB HEMETOLOGY METHOD 01/08/2025 4:29 AM [facility] Monocytes Relative 6.6 % LAB HEMETOLOGY METHOD 01/08/2025 4:29 AM [facility] Eosinophils Relative 2.3 % LAB HEMETOLOGY METHOD 01/08/2025 4:29 AM [facility] Basophils Relative 0.4 % LAB HEMETOLOGY METHOD 01/08/2025 4:29 AM EDT [facility] Immature Granulocytes Relative 0.4 % LAB HEMETOLOGY METHOD 01/08/2025 4:29 AM EDT [facility] Neutrophils Absolute 7.16(H) 1.50 - 7.00 K/mcL LAB HEMETOLOGY METHOD 01/08/2025 4:29 AM EDT [facility] Lymphocytes Absolute 3.01 1.00 - 5.00 K/mcL LAB HEMETOLOGY METHOD 01/08/2025 4:29 AM EDT [facility] Monocytes Absolute 0.74 0.20 - 1.00 K/mcL LAB HEMETOLOGY METHOD 01/08/2025 4:29 AM EDT [facility] Eosinophils Absolute 0.26 0.00 - 0.50 K/mcL LAB HEMETOLOGY METHOD 01/08/2025 4:29 AM EDT [facility] Basophils Absolute 0.05 0.00 - 0.20 K/mcL LAB HEMETOLOGY METHOD 01/08/2025 4:29 AM EDT [facility] Immature Granulocytes Absolute 0.05(H) 0.00 - 0.03 K/mcL LAB HEMETOLOGY METHOD 01/08/2025 4:29 AM EDT [facility] Blood Venous blood specimen / Unknown Venipuncture / Unknown 01/08/2025 4:15 AM EDT 01/08/2025 4:24 AM EDT us Rose LOZANO LAB BLOOD ORDERABLES Final Resul t [facility]) [facility] [address] [place] [address], * (ABNORMAL) Culture urine (01/08/2025 4:15 AM EDT) Culture, Urine >100,000 CFU/mL Klebsiella pneumoniae ssp pneumoniae(A) SERA 01/11/2025 7:45 AM EDT [facility] Comment: This is an edited result. Previous organism was Gram negative bacilli on 01/10/2025 at 1123 EDT. Urine Urine specimen obtained by clean catch procedure / Unknown Non-blood Collection / Unknown 01/08/2025 4:15 AM EDT 01/08/2025 4:33 AM EDT Narrative Organism Antibiotic Method Susceptibility Klebsiella pneumoniae ssp pneumoniae Amoxicillin/Clavulanate SERA <=2 ug/ml: Susceptible Klebsiella pneumoniae ssp pneumoniae Ampicillin/Sulbactam SERA 4 ug/ml: Susceptible Klebsiella pneumoniae ssp pneumoniae Piperacillin/Tazobactam SERA <=4 ug/ml: Susceptible Klebsiella pneumoniae ssp pneumoniae Cefazolin (Urine) SERA 2 ug/ml: Susceptible Klebsiella pneumoniae ssp pneumoniae Cefoxitin SERA <=4 ug/ml: Susceptible Klebsiella pneumoniae ssp pneumoniae Ceftazidime SERA <=0.5 ug/ml: Susceptible Klebsiella pneumoniae ssp pneumoniae Ceftriaxone SERA <=0.25 ug/ml: Susceptible Klebsiella pneumoniae ssp pneumoniae Cefepime SERA <=0.12 ug/ml: Susceptible Klebsiella pneumoniae ssp pneumoniae Meropenem SERA <=0.25 ug/ml: Susceptible Klebsiella pneumoniae ssp pneumoniae Amikacin SERA <=1 ug/ml: Susceptible Klebsiella pneumoniae ssp pneumoniae Gentamicin SERA <=1 ug/ml: Susceptible Klebsiella pneumoniae ssp pneumoniae Ciprofloxacin SERA <=0.06 ug/ml: Susceptible Klebsiella pneumoniae ssp pneumoniae Levofloxacin SERA <=0.12 ug/ml: Susceptible Klebsiella pneumoniae ssp pneumoniae Nitrofurantoin SERA 64 ug/ml: Intermediate Klebsiella pneumoniae ssp pneumoniae Trimethoprim/Sulfamethoxazo le SERA <=20 ug/ml: Susceptible Rose LOZANO LAB MICROBIOLOGY - GENERAL ORDER BLAKE Final Result [facility] [address] [place] [address], * Lipase (01/08/2025 4:15 AM EDT) Lipase 22 13 - 75 unit/L LAB CHEMISTRY METHOD 01/08/2025 4:50 AM EDT [facility] Blood Venous blood specimen / Unknown Venipuncture / Unknown 01/08/2025 4:15 AM EDT 01/08/2025 4:24 AM EDT Rose LOZANO LAB BLOOD ORDERABLES Final Resul t [facility] [address] [place] [address], * (ABNORMAL) Comprehensive metabolic panel (01/08/2025 4:15 AM EDT) Pathologist [facility] Sodium 134 133 - 145 mmol/L LAB CHEMISTRY METHOD 01/08/2025 4:50 AM T [facility] Potassium 3.8 3.5 - 5.5 mmol/L LAB CHEMISTRY METHOD 01/08/2025 4:50 AM [facility] Chloride 99 96 - 110 mmol/L LAB CHEMISTRY METHOD 01/08/2025 4:50 AM [facility] CO2 27 21 - 32 mmol/L LAB CHEMISTRY METHOD 01/08/2025 4:50 AM [facility] Anion Gap 8 3 - 11 LAB CHEMISTRY METHOD 01/08/2025 4:50 AM [facility] Glucose 161(H) 70 - 100 mg/dL LAB CHEMISTRY METHOD 01/08/2025 4:50 AM [facility] BUN 29(H) 5 - 25 mg/dL LAB CHEMISTRY METHOD 01/08/2025 4:50 AM [facility] Creatinine 1.46(H) 0.50 - 1.10 mg/dL LAB CHEMISTRY METHOD 01/08/2025 4:50 AM [facility] eGFR 40(L) >=60 mL/min/1. 73m2 LAB CHEMISTRY METHOD 01/08/2025 4:50 AM [facility] Comment:Calculation based on the Chronic Kidney Disease Epidemiology Collaboration (CKD-EPI) equation refit without adjustment for race. BUN/Creatinine Ratio 19.9 LAB CHEMISTRY METHOD 01/08/2025 4:50 AM EDT [facility] Calcium 9.3 8.5 - 10.5 mg/dL LAB CHEMISTRY METHOD 01/08/2025 4:50 AM [facility] AST (SGOT) 21 10 - 42 unit/L LAB CHEMISTRY METHOD 01/08/2025 4:50 AM [facility] ALT (SGPT) 25 10 - 60 unit/L LAB CHEMISTRY METHOD 01/08/2025 4:50 AM T [facility] Alkaline Phosphatase 134(H) 42 - 121 unit/L LAB CHEMISTRY METHOD 01/08/2025 4:50 AM [facility] Total Protein 8.0 6.0 - 8.0 g/dL LAB CHEMISTRY METHOD 01/08/2025 4:50 AM [facility] Albumin 3.8 3.2 - 5.0 g/dL LAB CHEMISTRY METHOD 01/08/2025 4:50 AM [facility] Total Bilirubin 0.4 0.0 - 1.4 mg/dL LAB CHEMISTRY METHOD 01/08/2025 4:50 AM [facility] Blood Venous blood specimen / Unknown Venipuncture / Unknown 01/08/2025 4:15 AM EDT 01/08/2025 4:24 AM EDT us Rose LOZANO LAB BLOOD ORDERABLES Final Resul t [facility] [address] [place] [address], * (ABNORMAL) Microalbumin creatinine urine ratio (12/06/2024 12:10 PM EDT) Creatinine, Urine 44.0 mg/dL LAB CHEMISTRY METHOD 12/06/2024 5:09 PM T [facility] Microalb, Ur 29.7(H) 0.0 - 29.0 mg/L LAB CHEMISTRY METHOD 12/06/2024 5:09 PM EDT [facility] Microalb/Crea t Ratio 68(H) <30 mg/g creat LAB CHEMISTRY METHOD 12/06/2024 5:09 PM EDT [facility] Urine Urine specimen obtained by clean catch procedure / Unknown Non-blood Collection / Unknown 12/06/2024 12:10 PM EDT 12/06/2024 12:10 PM EDT us Maykel Worley MD LAB URINE ORDERABLES Final Resu lt Performing Organization Address City/[facility]/ZIP Co de Phone Number [facility] [address] [place] [address], [place] [phone] * (ABNORMAL) Hemoglobin A1c (12/06/2024 12:10 PM EDT) Hemoglobin A1C 7.5(H) <6.5 % LAB CHEMISTRY METHOD 12/06/2024 9:28 PM EDT [facility] Mean Bld Glu Estim. 169 mg/dL LAB CHEMISTRY METHOD 12/06/2024 9:28 PM EDT [facility] Blood Venous blood specimen / Unknown Venipuncture / Unknown 12/06/2024 12:10 PM EDT 12/06/2024 12:10 PM EDT us Maykel Worley MD LAB BLOOD ORDERABLES Final Resu lt [facility] [address] [place] [address], [place] [phone] * (ABNORMAL) Lipid panel with reflex to direct LDL (08/10/2024 2:34 PM EST) Cholesterol 173 0 - 200 mg/dL LAB CHEMISTRY METHOD 08/10/2024 5:04 PM EST [facility] Triglycerides 192(H) 0 - 150 mg/dL LAB CHEMISTRY METHOD 08/10/2024 5:04 PM [facility] HDL 43 >=40 mg/dL LAB CHEMISTRY METHOD 08/10/2024 5:04 PM [facility] LDL Calculated 92 0 - 100 mg/dL LAB CHEMISTRY METHOD 08/10/2024 5:04 PM [facility] VLDL Cholesterol Jonas 38.4 mg/dL LAB CHEMISTRY METHOD 08/10/2024 5:04 PM [facility] Non HDL Chol. (LDL+VLDL) 130 <145 mg/dL LAB CHEMISTRY METHOD 08/10/2024 5:04 PM [facility] Chol/HDL Ratio 4.0 0.0 - 4.4 LAB CHEMISTRY METHOD 08/10/2024 5:04 PM [facility] Blood Venous blood specimen / Unknown Venipuncture / Unknown 08/10/2024 2:34 PM EST 08/10/2024 2:35 PM EST Maykel Worley MD LAB BLOOD ORDERABLES Final Resu lt [facility] [address] [place] [address], * Diabetes Eye Exam (06/15/2024) Diabetes: Annual [...] are composed of fatty and fibroglandular tissue. No suspicious mass, architectural distortion or suspicious calcifications [...] % Breast cancer risk category Low (<15%) Maykel Worley MD IMG XR PROCEDURES Final Result * Depression Screening (01/07/2024) Pathologist [facility] Depression Screening Abstracted Result [facility] Provider HEALTH MAINTENANCE Final Result * Cervical Cancer Screening: HPV (03/03/2015) [facility] Cervical Cancer Screening: HPV Negative, Abstracted Result [facility] Provider HEALTH MAINTENANCE Final Result * Hepatitis C Screening (02/01/2014) Pathologist [facility] Hepatitis C Screening Abstracted Result [facility] Historical Provider HEALTH MAINTENANCE Final Result from Last 3 Months or Most Recently Relevant to Health [place] [id number] [facility] Care Teams Ramp 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
--- OUTSIDE RECORDS SUMMARY | 2025-03-28 10:33 | XMS_ITS | Referral Summary ---
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 4 Active aspirin chewable tablet 81 mg Chew and swallow 81 mg by mouth once a day. 4 Active atorvastatin (LIPITOR) 80 mg tablet Take 80 mg by mouth at bed time. at bedtime 4 Active Arthritis Pain Relief,capsaic, 0.075 % topical cream Apply 1 application. topically to the affected area as needed. 4 Active carvediloL (COREG) 12.5 mg tablet Take 12.5 mg by mouth 2 times a day. 4 Active levothyroxine (SYNTHROID, LEVOTHROID) 75 mcg tablet Take 75 mcg by mouth once a day. 4 Active insulin lispro 100 unit/mL insulin pen INJECT 35 TO 45 UNITS UNDER THE SKIN THREE TIMES DAILY BEFORE MEALS DIRECTED 5 Active insulin glargine (LANTUS) injection 100 units/mL vial Inject under the skin. Active Mounjaro 5 mg/0.5 mL pen injector Inject 5 mg under the skin. 5 Active valsartan-hydro chlorothiazide (DIOVAN-HCT) 160-25 mg per tablet Take 1 tablet by mouth once a day. 4 Active traZODone (DESYREL) 50 mg tablet Take 50 mg by mouth nightly. 4 Active nitroglycerin (NITROSTAT) 0.[address] 1 TABLET UNDER THE TONGUE EVERY 5 MINUTES NEEDED FOR CHEST PAIN. 4 Active cyclobenzaprine (FLEXERIL) 10 mg tablet Take 1 tablet (10 mg total) by mouth nightly. 30 tablet 5 Active Active Problems No known active problems Social History Tobacco Use Types Packs/Day Years Used Date Smoking Tobacco: Never Passive Smoke Exposure: Past Smokeless Tobacco: Never Tobacco Cessation:Counseling Given: Not Answered Alcohol Use Standard Drinks/Week Comments Not Currently 0 (1 standard drink = 0.6 oz pur e alcohol) Comments Unknown Sex and Gender Information Value Date Recorded Sex Assigned at Female 11/25/2024 12:06 PM EDT Legal Sex Female 12:03 PM EDT Gender Identity Female 02/03/2025 1:31 PM EDT Sexual Orientation Straight 02/03/2025 1: 31 PM EDT Last Filed Vital Signs Vital Sign Reading Time Taken Comments Blood Pressure 94/64 02/04/2025 1:51 PM EDT Pulse 87 02/04/2025 1:51 PM EDT Temperature 37 C (98.6 F) 02/04/2025 1:51 PM EDT Respiratory Rate - - Oxygen Saturation - - Inhaled Oxygen Concentration - - Weight 112.9 kg (249 lb) 02/04/2025 1:51 PM EDT Height 157.5 cm (5' 2 ) 02/04/2025 1:51 PM EDT Body Mass Index 45.54 02/04/2025 1:51 PM EDT Plan of Treatment Not on file Procedures * Due to [place] [employer] law, this organization might not be sharing negative HIV tests. Procedure Name Priority Date/Time Associated Diagnosis Comments SEDIMENTATION RATE, AUTOMATED Routine 02/04/2025 2:40 PM EDT Arthralgia of multiple sites RHEUMATOID FACTOR Routine 02/04/2025 2:4 0 PM EDT Arthralgia of multiple sites CYCLIC CITRULLLNATED PEPTIDE (CCP) ANTIBODY, IGG Routine 02/04/2025 2:40 PM EDT Arthralgia of multiple sites C-REACTIVE PROTEIN Routine 02/04/2025 2: 40 PM EDT Arthralgia of multiple sites from Last 3 Months Results * Due to [place] [employer] law, this organization might not be sharing negative HIV tests. * Cyclic Citrullinated Peptide (CCP) Antibody, IgG (02/04/2025 2:40 PM EDT) Cyclic Citrullinated Peptide (CCP) Ab (IgG) <16 UNITS 02/08/2025 12:31 PM EDT Right Hemisphere Comment: Reference Range Negative: <20 Weak Positive: 20-39 Moderate Positive: 40-59 Strong Positive: >59 Blood Structure of peripheral vein / Unknown Venipuncture / Unknown 02/04/2025 2:40 PM EDT 02/04/2025 3:45 PM EDT Narrative [facility] - 02/08/2025 12:31 PM EDT [facility] Received Date: us Rosaline Cali MD LAB BLOOD ORDERABLES Final Result [facility] [address], [place] [address], [place] [phone] [facility] [address], [place] [address], [place] [phone] * (ABNORMAL) Sedimentation Rate (02/04/2025 2:40 PM EDT) Sed Rate 70(H) <30 mm/Hr mm/Hr 02/04/2025 4:05 PM EDT [facility] Blood Structure of peripheral vein / Unknown Venipuncture / Unknown 02/04/2025 2:40 PM EDT 02/04/2025 3:45 PM EDT us Rosaline Cali MD LAB BLOOD ORDERABLES Final Result [facility] [address] [place] [id number], * Rheumatoid Factor (02/04/2025 2:40 PM EDT) Rheumatoid Factor <10 <14 IU/mL 02/04/2025 11:16 PM EDT [facility] Blood Structure of peripheral vein / Unknown Venipuncture / Unknown 02/04/2025 2:40 PM EDT 02/04/2025 3:45 PM EDT Narrative [facility] - 02/04/2025 11:16 PM EDT [facility] Received Date:[id number] us Rosaline Cali MD LAB BLOOD ORDERABLES Final Result [facility] [address], [place] [address], [place] [phone] [facility] [address], [place] [address], [place] [phone] * (ABNORMAL) C-Reactive Protein (02/04/2025 2:40 PM EDT) C Reactive Protein 10.6(H) <=9.9 mg/L 02/04/2025 4:26 PM EDT [facility] Blood Structure of peripheral vein / Unknown Venipuncture / Unknown 02/04/2025 2:40 PM EDT 02/04/2025 3:45 PM EDT Rosaline Cali MD LAB BLOOD ORDERABLES Final Result [facility] [address] [place] [address], from Last 3 Months Insurance [employer] Advance Directives Documents on File Type Date Recorded Patient Hospice Executive Director Expl anation Health Care Proxy 02/06/2025 9:23 PM 2024 Care Teams Extension Specialist Relationship Specialty Start Date End Date Maykel Worley III, MD [address] [place] [address] PCP - General Internal Medicine 11/25/24
== END 2025-03-28 11:17 | disposition home or self-care (01) ==
LOC: HO.HMCFM 09:50
PROVIDERS: PCP Nurse Practitioner Family; Visit Provider Nurse Practitioner Family
DX: I70.235 Atherosclerosis of native arteries of right leg with ulceration of other part of foot (principal); E11.8 Type 2 diabetes mellitus with unspecified complications; E66.01 Morbid (severe) obesity due to excess calories; Z68.42 Body mass index [BMI] 45.0-49.9, adult; E11.69 Type 2 diabetes mellitus with other specified complication; E11.41 Type 2 diabetes mellitus with diabetic mononeuropathy; E11.22 Type 2 diabetes mellitus with diabetic chronic kidney disease; N18.30 Chronic kidney disease, stage 3 unspecified; Z76.89 Persons encountering health services in other specified circumstances; Z96.41 Presence of insulin pump (external) (internal); N28.1 Cyst of kidney, acquired; I45.10 Unspecified right bundle-branch block

== ENCOUNTER 2025-03-28 11:02 | Outpatient (REF) | payer OTHER, SELFPAY ==
[2025-03-28 14:17] LABS: Hematocrit 38.4 % (37.0-47.0); Hemoglobin 12.8 g/dl (12.0-16.0); Mean Corpuscular HGB Conc 33.3 g/dl (31.0-35.0); Mean Corpuscular Hemoglobin 28.8 pg (27.0-33.0); Mean Corpuscular Volume 86.5 fL (80.0-98.0); NRBC Abs Auto 0.000 X10*3/uL (0.0-0.012); NRBC Pct Auto 0.0 /100WBC (0.0-0.2); Platelet Count 344 X10*3/uL (160-400); Red Blood Count 4.44 X10*6/uL (4.20-5.50); White Blood Count 7.1 X10*3/uL (4.8-10.8)
[2025-03-28 14:35] LABS: Alanine Aminotransferase 34 U/L (0-31); Albumin Level 4.2 g/dL (3.5-5.0); Alkaline Phosphatase 128 U/L (39-117); Anion Gap 12 (12-20); Aspartate Amino Transferase 29 U/L (5-31); Blood Urea Nitrogen 22 mg/dL (9-16); Calcium 9.5 mg/dL (8.4-10.2); Carbon Dioxide 27 mmol/L (22-29); Chloride 103 mmol/L (96-108); Cholesterol 172 mg/dL (<200); Estimated Glomerular Filt Rate 46; HDL Cholesterol 33 mg/dL (>40); Iron 58 mcg/dL (30-160); Percent Iron Saturation 22 % (15-50); Potassium 4.0 mmol/L (3.3-5.1); Sodium 138 mmol/L (135-145); Total Iron Binding Capacity 265 mcg/dL (228-428); Total Protein 7.4 g/dL (6.5-8.0); Triglycerides 395 mg/dL (<150); Unsaturated Iron Binding 207 ug/dL
[2025-03-28 14:43] LABS: Parathyroid Hormone Intact 72.2 pg/mL (8.7-77.1)
[2025-03-28 14:47] LABS: Microalbum/Creatinine Ratio Ur 12.3 ug/mg cr (<30)
[2025-03-28 15:02] LABS: Folate 7.6 ng/mL (> or = 4.0); Vitamin B12 350 pg/mL (200-900)
== END 2025-03-28 11:03 | disposition home or self-care (01) ==
LOC: HO.WFDLDS 11:02
PROVIDERS: Visit Provider Nurse Practitioner Family
DX: Z00.01 Encounter for general adult medical examination with abnormal findings (principal); Z76.89 Persons encountering health services in other specified circumstances; E66.01 Morbid (severe) obesity due to excess calories; Z68.42 Body mass index [BMI] 45.0-49.9, adult; E03.9 Hypothyroidism, unspecified; K21.9 Gastro-esophageal reflux disease without esophagitis; K76.0 Fatty (change of) liver, not elsewhere classified; N28.1 Cyst of kidney, acquired; I12.9 Hypertensive chronic kidney disease with stage 1 through stage 4 chronic kidney disease, or unspecified chronic kidney disease; E11.22 Type 2 diabetes mellitus with diabetic chronic kidney disease; N18.30 Chronic kidney disease, stage 3 unspecified; I45.10 Unspecified right bundle-branch block; E11.69 Type 2 diabetes mellitus with other specified complication; E78.5 Hyperlipidemia, unspecified; R68.81 Early satiety; R29.898 Other symptoms and signs involving the musculoskeletal system; F33.0 Major depressive disorder, recurrent, mild; F41.1 Generalized anxiety disorder; E11.41 Type 2 diabetes mellitus with diabetic mononeuropathy; I70.235 Atherosclerosis of native arteries of right leg with ulceration of other part of foot; E55.9 Vitamin D deficiency, unspecified; Z79.899 Other long term (current) drug therapy; Z96.41 Presence of insulin pump (external) (internal); Z13.31 Encounter for screening for depression; Z13.39 Encounter for screening examination for other mental health and behavioral disorders
CPT/HCPCS: 36415; 80053; 80061; 82043; 82306; 82570; 82607; 82746; 83036; 83540; 83970; 84443; 85027; 96127; 99202; 99386

== ENCOUNTER 2025-04-26 13:13 | Outpatient (AMB) | payer OTHER, SELFPAY ==
--- NOTE | 2025-04-26 13:18 | MHC.OFFVIS ---
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 States she hit her left great toe and it has been black for around 3 months. 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 The darkened left great toe nail bed developed after the patient hit her foot on the stairs, and it has not healed properly since then. The patient has a history of diabetes mellitus for 34 years, which may contribute to delayed healing. The patient also has a history of neuropathy, which necessitates regular checks of her legs to prevent complications. [facility] Medical History Anxiety and depression Kidney disease GERD (gastroesophageal reflux disease) Spine disorder Back pain Arthritis Thyroid disorder Palpitations Allergies Sinusitis Asthma Tachyarrhythmia Hyperthyroidism Hypercholesteremia Hypertension Diabetes Surgical History Hx of foot surgery Hx of cholecystectomy Family History Father Diabetes HTN (hypertension) Cancer Mother Diabetes HTN (hypertension) Asthma High cholesterol Cardiovascular disease Cancer Social History Household Members: Family, None and Other Household Members Other:: Grandaughter Both parents involved: No Caregiver staying overnight: No Housing: Apartment Are you a primary transitional care manager to a significant other at home: No Do you presently have visiting nurse or other home services: No 75 years or older and lives alone: No Alcohol intake: former Patient Tobacco Use Status: Never used Tobacco e-Cigarette/Vaping Use: Never Used Second Hand Smoke Exposure: No Current occupational status: disabled Sexual orientation: Straight/Heterosexual Gender identity: Female Cognitive needs: No Hearing needs: No Vision needs: No Female Reproductive History Menstrual Age of Menarche: 12 Review of Systems Const All systems reviewed & are unremarkable except as noted in HPI and below Reports no additional complaints ENT Reports Normal hearing present Card Denies chest pain, Denies chest pain at rest, Denies chest pain with activity and Denies pedal edema Resp Denies cough GI Denies abdominal pain Musc Denies abnormal gait, Denies muscle cramps and Denies radiating pain into limb Skin/Breast Denies skin ulcer and Denies wounds Neuro Reports Normal hearing present and Denies abnormal gait Psych Reports no additional complaints Physical Exam Const General: cooperative, healthy appearing and comfortable Orientation/consciousness: oriented to person, oriented to place and oriented to time HEENT Head: Yes normal to inspection Neck Neck: Yes normal visual inspection Carotids: no bruits Chest Chest palpation & inspection: normal inspection of the chest Resp Effort & Inspection: normal respiratory effort and able to speak in complete sentences Auscultation: clear to auscultation bilaterally, no crackles, no rales, no rhonchi and no wheezes Cardio Other: Bilateral palpable dorsalis pedis pulse Rate: regular rate Rhythm: regular rhythm Heart sounds: S1 normal heart sound present and S2 normal heart sound present Bruits: no carotid bruits Peripheral pulses: Peripheral pulses 2+ throughout GI Inspection: Yes normal to inspection Skin Wounds: no wounds Hair: normal Neuro General: oriented to person, oriented to place and oriented to time Cranial nerves: Yes CN's II-XII intact bilaterally and Yes Normal hearing present Cognition (Neuro): normal cognition Motor exam (neuro): 5/5 motor strength present throughout Extrem Other: Left great toe subungual hematoma General: No clubbing, No cyanosis and No edema Psych Appearance: grossly normal Mental Status: mental status grossly normal Speech and movement: Normal speech and movement present Assessment & Plan Assessment & Plan (1) Subungual hematoma of great toe of left foot: Code(s): S90.212A - Contusion of left great toe with damage to nail, initial encounter Category: Medical Qualifiers: Encounter type: initial encounter Qualified Code(s): S90.212A - Contusion of left great toe with damage to nail, initial encounter Plan: In short patient has a subungual hematoma. It appears to be doing relatively well and stable. I do think this will eventually grow out. Patient has palpable arterial pulses. Does have some mild swelling would not intervene on this at the current time. We did discuss being active and weight loss. She will follow up with us on an as-needed basis. Thank you for allowing us to assist in her care. Coding Level of Care Code New Pt Level 4 (54484) Diagnoses Subungual hematoma of great toe of left foot, initial encounter S90.212A Encounter type: initial encounter
--- OUTSIDE RECORDS SUMMARY | 2025-04-26 14:22 | XMS_ITS | Clinical Summary ---
Author Organization [facility] [address] [place] [address] [place] [address] [place] [address] Phone Care Team Providers Care Emergency Man Name Role Phone Maykel Worley MD Primary Care Provider [phone] Allergies Active Allergy Reactions Criticality Noted Date [...] 1 Tablet by mouth daily. 4 Active levothyroxine (SYNTHROID, LEVOTHROID) 75 mcg tablet Take 1 Tablet by mouth daily. 4 Active fluticasone propionate (FLONASE) 50 mcg/actuation nasal spray 1 Sterling by Each Nare route daily for 360 days. 4 Active lidocaine (ZTlido) 1.8 % adhesive patch,medicated Apply 1 Patch topically daily as needed (pain). Apply for no more than 12 hours in a 24 hour period. 4 Active flash glucose scanning reader (FreeStyle Jennifer 2 [place]) misc 1 Device by Does not apply [...] AT BEDTIME 90 tablet 1 4 Active cholecalciferol (VITAMIN D-3) 50 [...] for anxiety 30 tablet 5 4 Active insulin glargine U-300 conc (Toujeo Max U-300 SoloStar) 300 unit/mL (3 mL) CONCENTRATED injection pen See Admin Instructions. Inject 120 units in AM and 90 units in PM 180 mL 1 5 Active DULoxetine (CYMBALTA) [address] capsule Take 1 capsule (30 mg total) by mouth 1 (one) time each day. Do not crush or chew. 30 capsule 5 Active pregabalin (LYRICA) 150 mg capsule Take 1 capsule (150 mg total) by mouth 2 (two) times a day. Max Daily Amount: 300 mg 60 each 5 5 06/04/20 25 Active insulin lispro (HumaLOG KwikPen) 100 unit/mL injection penIndications:Kenzie betes mellitus type 2 with neurological manifestations (CMS/HCC V24, [facility] V28),Type 2 diabetes mellitus with retinopathy, with long-term current use of insulin, macular edema presence unspecified, unspecified laterality, unspecified retinopathy severi* ([facility] V24, [facility] V28),Type 2 diabetes mellitus with chronic kidney disease, with long-term current use of insulin, unspecified CKD stage ([facility] V24, [facility] V28) INJECT 35 TO 45 UNITS UNDER THE SKIN THREE TIMES DAILY BEFORE MEALS DIRECTED 135 mL 1 5 Active atorvastatin (LIPITOR) 80 mg tablet TAKE ONE TABLET BY MOUTH DAILY AT BEDTIME 90 tablet 1 5 Active flash glucose sensor (FreeStyle Jennifer 2 Sensor) kitIndications:Kenzie betes mellitus type 2 with neurological manifestations ([facility] V24, [facility] V28) Change every 14 days. 6 each 1 5 Active tirzepatide (Mounjaro) 5 mg/0.5 mL injectionIndicatio ns:Diabetes mellitus type 2 with neurological manifestations ([facility] V24, [facility] V28) Inject 0.5 mL (5 mg total) under the skin every 7 (seven) days. 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 Vitamin B12 deficiency 10/21/2013 Vitamin D deficiency 10/21/2013 Diabetes mellitus type 2 wit h neurological manifestations ([facility] V24, [facility] V28) 05/18/2013 Overview (06/17/2024): Peripheral neuropathy (per office note, 04/30/12) and CTS Microalbuminuria 05/18/2013 Type 2 diabetes mellitus wit h eye manifestations ([facility] V24, [facility] V28) 05/18/2013 Overview (06/17/2024): Retinopathy per [facility] records Type II diabetes mellitus wi th renal manifestations ([facility] V24, [facility] V28) 05/18/2013 Overview (06/17/2024): Stage III CKD & microalbuminuria Venous insufficiency 05/25/2010 Anemia 10/21/2008 Carpal tunnel syndrome 06/21/2008 GERD (gastroesophageal reflux disease) 8 Anxiety 11/19/2007 Depression 10/29/2007 Ankle pain 09/30/2007 Overview (06/17/2024): H/o ORIF, after R ankle farcuture on 1989. Patient has recurrent pain with difficuties ambulating Insomnia 09/30/2007 Morbid obesity with BMI of 4 5.0-49.9, adult ([facility] V24, [facility] V28) 06/18/2007 Asthma 06/10/2007 Hyperlipidemia 06/10/2007 Hypothyroidism 06/10/2007 Encounters Date Type Department Care Team Description 04/22/2025 Telephone Endocrinology - [address] [address] Rosina Treviño PA prior auth 02/02/2025 Telephone Adult Medicine [place] [id number] [place] [address] Maykel Worley MD Hospitalization/ER from Last 3 Months Immunizations Name Administration [...] History Surgery Date Site/Laterality Comments CHOLECYSTECTOMY PROCEDURE: [place] LAPAROSCOPY SURG CHOLECYSTECTOMY OTHER SURGICAL HISTORY PROCEDURE: [...] 06/18/2007 D X:Essential hypertension, benign Morbid obesity ([facility] V24, [facility] V28) 06/18/2007 DX:Morbid obesity (HCC) Heart disease, unspecified 06/10/2007 DX:He art disease, unspecified Anemia 10/21/08 DX:Anemia DM (diabetes mellitus), type 2, uncontrolled, with renal complications 05/18/2013 DX:DM (diabetes mellitus), t ype 2, uncontrolled, with renal complications Hyperlipidemia 06/10/2007 DX:Hyperlipidemi a Diabetes mellitus type 2 wit h neurological manifestations ([facility] V24, [facility] V28) 05/18/2013 DX:Diabetes mellitus type 2 with neurological manifestations ([facility]); COMMENT: PMH of carpal tunnel and neuropathy. Type 2 diabetes mellitus wit h eye manifestations ([facility] V24, [facility] V28) 05/18/2013 DX:Type 2 diabetes mellitus with [...] Care Team (Late st Contact Info) Description 06/17/2025 11:30 AM EDT Office Visit Adult Medicine [address] [phone] Maykel Wroley MD [address] [place] [phone] Health Maintenance Due Date Last Done Comments [...] Procedure Name Priority Date/Time Associated Diagnosis Comments COMPREHENSIVE METABOLIC PANEL STAT 01/08/2025 4:15 AM EDT MICROALBUMIN CREATININE URINE RATIO Routine 12/06/2024 12:10 PM EDT Type 2 diabetes mellitus with chronic kidney disease, with long-term current use of insulin, unspecified CKD stage (CMS/HCC V24, CMS/HCC V28) HEMOGLOBIN A1C Routine 12/06/2024 12:10 PM EDT Type 2 diabetes mellitus with other diabetic kidney complication, with long-term current use of insulin (CMS/HCC V24, CMS/HCC V28) LIPID PANEL WITH REFLEX TO DIRECT [...] Relevant to Health Maintenance Results * (ABNORMAL) Comprehensive metabolic panel (01/08/2025 4:15 AM EDT) Sodium 134 133 - 145 mmol/L LAB CHEMISTRY METHOD 01/08/2025 4:50 AM [facility] Potassium 3.8 3.5 - 5.5 mmol/L LAB CHEMISTRY METHOD 01/08/2025 4:50 AM [facility] Chloride 99 96 - 110 mmol/L LAB CHEMISTRY METHOD 01/08/2025 4:50 AM [facility] CO2 27 21 - 32 mmol/L LAB CHEMISTRY METHOD 01/08/2025 4:50 AM [facility] Anion Gap 8 3 - 11 LAB CHEMISTRY METHOD 01/08/2025 4:50 AM [facility] Glucose 161(H) 70 - 100 mg/dL LAB CHEMISTRY METHOD 01/08/2025 4:50 AM [facility] BUN 29(H) 5 - 25 mg/dL LAB CHEMISTRY METHOD 01/08/2025 4:50 AM [facility] Creatinine 1.46(H) 0.50 - 1.10 mg/dL LAB CHEMISTRY METHOD 01/08/2025 4:50 AM [facility] eGFR 40(L) >=60 mL/min/1. 73m2 LAB CHEMISTRY METHOD 01/08/2025 4:50 AM [facility] Comment:Calculation based on the Chronic Kidney Disease Epidemiology Collaboration (CKD-EPI) equation refit without adjustment for race. BUN/Creatinine Ratio 19.9 LAB CHEMISTRY METHOD 01/08/2025 4:50 AM [facility] Calcium 9.3 8.5 - 10.5 mg/dL LAB CHEMISTRY METHOD 01/08/2025 4:50 AM [facility] AST (SGOT) 21 10 - 42 unit/L LAB CHEMISTRY METHOD 01/08/2025 4:50 AM [facility] ALT (SGPT) 25 10 - 60 unit/L LAB CHEMISTRY METHOD 01/08/2025 4:[address] [facility] Alkaline Phosphatase 134(H) 42 - 121 unit/L LAB CHEMISTRY METHOD 01/08/2025 4:[address] [facility] Total Protein 8.0 6.0 - 8.0 g/dL LAB CHEMISTRY METHOD 01/08/2025 4:[address] [facility] Albumin 3.8 3.2 - 5.0 g/dL LAB CHEMISTRY METHOD 01/08/2025 4:[address] [facility] Total Bilirubin 0.4 0.0 - 1.4 mg/dL LAB CHEMISTRY METHOD 01/08/2025 4:[address] [facility] Blood Venous blood specimen / Unknown Venipuncture / Unknown 01/08/2025 4:15 AM EDT 01/08/2025 4:24 AM EDT Rose LOZANO LAB BLOOD ORDERABLES Final Resul t [facility] [address] [place] [address], [place] [phone] * (ABNORMAL) Microalbumin creatinine urine ratio (12/06/2024 12:10 PM EDT) Creatinine, Urine 44.0 mg/dL LAB CHEMISTRY METHOD 12/06/2024 5:[address] [facility] Microalb, Ur 29.7(H) 0.0 - 29.0 mg/L LAB CHEMISTRY METHOD 12/06/2024 5:[address] [facility] Microalb/Crea t Ratio 68(H) <30 mg/g creat LAB CHEMISTRY METHOD 12/06/2024 5:[address] [facility] Urine Urine specimen obtained by clean catch procedure / Unknown Non-blood Collection / Unknown 12/06/2024 12:10 PM EDT 12/06/2024 12:10 PM EDT us Maykel Worley MD LAB URINE ORDERABLES Final Resu lt Performing Organization Address City/[facility]/ZIP Co de Phone Number [facility] [address] [place] [address], [place] [phone] * (ABNORMAL) Hemoglobin A1c (12/06/2024 12:10 PM [...] ORDERABLES Final Resu lt Performing Organization Address [facility]/ZIP Co de Phone Number [facility] [address] [place] [address], [place] [phone] * (ABNORMAL) Lipid panel with reflex to direct LDL (08/10/2024 2:34 PM EST) Cholesterol 173 0 - 200 mg/dL LAB CHEMISTRY METHOD 08/10/2024 5:[address] [facility] Triglycerides 192(H) 0 - 150 mg/dL LAB CHEMISTRY METHOD 08/10/2024 5:[address] [facility] HDL 43 >=40 mg/dL LAB CHEMISTRY METHOD 08/10/2024 5:[address] [facility] LDL Calculated 92 0 - 100 mg/dL LAB CHEMISTRY METHOD 08/10/2024 5:[address] [facility] VLDL Cholesterol Jonas 38.4 mg/dL LAB CHEMISTRY METHOD 08/10/2024 5:[address] [facility] Non HDL Chol. (LDL+VLDL) 130 <145 mg/dL LAB CHEMISTRY METHOD 08/10/2024 5:[address] [facility] Chol/HDL Ratio 4.0 0.0 - 4.4 LAB CHEMISTRY METHOD 08/10/2024 5:[address] [facility] Blood Venous blood specimen / Unknown Venipuncture / Unknown 08/10/2024 2:34 PM EST 08/10/2024 2:35 PM EST Maykel Worley MD LAB BLOOD ORDERABLES Final Resu lt [facility] [address] [place] [address], * Diabetes Eye Exam (06/15/2024) Diabetes: Annual [...] Breast cancer risk category Low (<15%) Result [facility] Maykel Worley MD IMG XR PROCEDURES Final Result * Depression Screening (01/07/2024) Depression Screening Abstracted Result [facility] Provider HEALTH MAINTENANCE Final Result * Cervical Cancer Screening: HPV (03/03/2015) Cervical Cancer Screening: HPV Negative, Abstracted Result [facility] Provider HEALTH MAINTENANCE Final Result * Hepatitis C Screening (02/01/2014) Hepatitis C Screening Abstracted Result [facility] Provider HEALTH MAINTENANCE Final Result from Last 3 Months or Most Recently Relevant to Health Maintenance Insurance DR [place] [facility] Care Teams Emergency Man Relationship Specialty Start Date End Date Maykel Worley MD [address] [place] [address] [place] [address] [phone] (work) PCP - General Internal Medicine 05/19/14
--- OUTSIDE RECORDS SUMMARY | 2025-04-26 14:22 | XMS_ITS | Clinical Summary ---
Author Organization [facility] Address [address] [address] Phone Care Team Providers Care Logistics Coordinator Name Role Phone Unavailable Primary Care Provider [...] patient's age to complete this topic Insurance [facility] Medicaid
--- OUTSIDE RECORDS SUMMARY | 2025-04-26 14:23 | XMS_ITS | Clinical Summary ---
Author Organization [facility] Address [address] [place] [address] Care Team Providers Care Forming Machine Upkeep Mechanic Name Role Phone Meir HUA MD, Maykel Flynn Primary Care Provider Iris vailable Allergies Active Allergy Reactions Criticality Noted Date [...] Active Active Problems No known active problems Encounters Date Type Department Care Team Description 02/04/2025 3:00 PM EDT Lab [facility] Lab Draw [address] [place] [address] Arthralgia of multiple sites 02/04/2025 2:00 PM EDT Office Visit [facility] [address] [place] [address] Radio Control Crane Operator: Rosaline Ashley MD Arthralgia of multiple sites (Primary Dx); Lumbar radiculopathy, right from Last 3 Months Social History Tobacco Use Types Packs/Day Years [...] 02/04/2025 1:51 PM EDT Plan of Treatment Health Maintenance Due Date Last Done Comments Cervical Cancer Screening 1960 Cologuard 1960 Colonoscopy 1960 HIV Screening 1960 HPV and Pap Smear 1960 Hepatitis C Screening 1960 Pap Smear 1960 Sigmoidoscopy 1960 Mammogram 2000 Pneumococcal Vaccine: 50+ Years (2 of 2 - PCV) 06/29/2008 06/29/2007 Zoster Vaccines (1 of 2) 2010 RSV Vaccine (60+ years old and patients) (1 - Risk 60-74 years 1-dose series) 2020 COVID-19 Vaccine ( season) 2024 05/06/2022, 01/20/2021, 12/30/2020 Alcohol/Substance Use Screening 09/08/2024 Depression Screening and Follow-Up 09/08/2024 Social Drivers of Health Annual Screening 09/08/2024 Influenza Vaccine (#1) 2025 , 06/30/2020, 08/12/2019, Additional history exists Colon Cancer Screening 12/06/2025 FOBT / Fit Test 12/06/2025 12/06/2024 DTaP,Tdap,and Td Vaccines (3 - Td or Tdap) 08/12/2029 08/12/2019, 11/19/2007 Hepatitis B Vaccines Aged Out No long er eligible based on patient's age to complete this topic Procedures * Due to [place] state law, this organization might not be sharing [...] Last 3 Months Results * Due to [place] state law, this organization might not be sharing negative HIV tests. * Cyclic Citrullinated Peptide (CCP) Antibody, IgG (02/04/2025 2:40 PM EDT) Cyclic Citrullinated Peptide (CCP) Ab (IgG) <16 UNITS 02/08/2025 12:31 PM EDT [facility] Comment: Reference Range Negative: <20 Weak Positive: 20-39 Moderate Positive: 40-59 Strong Positive: >59 Blood Structure of peripheral vein / Unknown Venipuncture / Unknown 02/04/2025 2:40 PM EDT 02/04/2025 3:45 PM EDT Narrative [facility] - 02/08/2025 12:31 PM EDT [facility] Received Date: us Rosaline Cali MD LAB BLOOD ORDERABLES Final Result [facility] [address], [place] [address], [place] [phone] [facility] [address], [place] [address], [place] [phone] * (ABNORMAL) Sedimentation Rate (02/04/2025 2:40 PM EDT) Pathologist [facility] Sed Rate 70(H) <30 mm/Hr mm/Hr 02/04/2025 4:05 PM EDT [facility] Blood Structure of peripheral vein / Unknown Venipuncture / Unknown 02/04/2025 2:40 PM EDT 02/04/2025 3:45 PM EDT us Rosaline Cali MD LAB BLOOD ORDERABLES Final Result [facility] [address] [place] [address], * Rheumatoid Factor (02/04/2025 2:40 PM EDT) Rheumatoid Factor <10 <14 IU/mL 02/04/2025 11:16 PM EDT [facility] Blood Structure of peripheral vein / Unknown Venipuncture / Unknown 02/04/2025 2:40 PM EDT 02/04/2025 3:45 PM EDT Narrative [facility] - 02/04/2025 11:16 PM EDT [facility] Received Date:[id number] Rosaline Cali MD LAB BLOOD ORDERABLES Final Result [address], [place] [address], [place] [phone] [facility] [address], [place] [address], [place] [phone] * (ABNORMAL) C-Reactive Protein (02/04/2025 2:40 PM EDT) C Reactive Protein 10.6(H) <=9.9 mg/L 02/04/2025 4:26 PM EDT [facility] Blood Structure of peripheral vein / Unknown Venipuncture / Unknown 02/04/2025 2:40 PM EDT 02/04/2025 3:45 PM EDT Rosaline Cali MD LAB BLOOD ORDERABLES Final Result [facility] [address] [place] [address], from Last [address] [id number] [employer] Advance Directives Documents on File Type Date Recorded Patient Plating Foreman Expl [facility] Care Proxy 02/06/2025 9:23 PM 2024 Care Teams Forming Machine Upkeep Mechanic Relationship Specialty Start Date End Date Maykel Worley III, MD [address] [place] [address] PCP - General Internal Medicine 11/25/24
== END 2025-04-26 13:36 | disposition home or self-care (01) ==
LOC: HO.HVS 13:13
PROVIDERS: PCP Nurse Practitioner Family; Visit Provider Surgery Vascular Surgery
DX: S90.212A Contusion of left great toe with damage to nail, initial encounter (principal)
CPT/HCPCS: 99204

== ENCOUNTER → 2025-04-26 13:13 | Outpatient (BNVA) | payer OTHER, SELFPAY | PROVIDERS: PCP Nurse Practitioner Family; Visit Provider Surgery Vascular Surgery | DX: M79.675 Pain in left toe(s) (principal); S90.212A Contusion of left great toe with damage to nail, initial encounter | CPT/HCPCS: 99202 ==

== ENCOUNTER 2025-05-02 14:17 | Outpatient (AMB) | payer OTHER, SELFPAY ==
--- NOTE | 2025-05-02 14:18 | A.OFFPC_ITS ---
Intake Visit Reasons: 2 WEEKS TELEHELATH FU HOLD MOUN Intake Note: Telehealth follow up on . Patient daughter c/o dizziness and light headed twice yesterday. Color Consultant Required: No Allergies acetaminophen (From Percocet) Allergy (Severe, Verified 05/02/25 15:30) Nausea and Vomiting oxycodone (From Percocet) Allergy (Severe, Verified 05/02/25 15:30) Nausea and Vomiting tramadol Allergy (Severe, Verified 05/02/25 15:30) Nausea and Vomiting lisinopril Allergy (Unknown, Verified 05/02/25 15:30) Cough Penicillins (PENICILLINS) Allergy (Unknown, Verified 05/02/25 15:30) RASH,HIVES Penicillin Allergy (Unknown, Uncoded 05/02/25 14:20) Unknown Pt states no food allergies Allergy (Unknown, Uncoded 05/02/25 14:20) Unknown Medication List - Last Reconciled 05/02/25 by Janet Danielson, LOAN ANALYST-BC aspirin 1 tab PO DAILY atorvastatin 80 mg PO DAILY carvedilol 12.5 mg PO BID cholecalciferol (vitamin D3) 50 mcg PO DAILY cyclobenzaprine 10 mg PO DAILY flash glucose sensor (FreeStyle Jennifer 2 Sensor kit) As directed fluticasone propionate 50 mcg/actuation 2 sprays intranasal DAILY insulin glargine U-300 conc (Toujeo Max U-300 SoloStar) units subcut insulin lispro 35 - 45 units subcut TID ipratropium-albuterol 0.5 mg-3 mg(2.5 mg base)/3 mL 1 mL PO Q8H PRN levothyroxine 75 mcg PO DAILY nitroglycerin 0.4 mg sublingual omeprazole 20 mg PO DAILY pen needle, diabetic (Unifine Pentips Plus) As directed tirzepatide (Mounjaro) 5 mg (0.5 mL) subcut QWEEK Held on 03/28/25. Instructions: Doctor's Order valsartan-hydrochlorothiazide 160-25 mg 1 tab PO DAILY Tobacco use date assessed: 05/02/25 Fall risk assessment: No Falls in past year Last assessed Fall Risk: 05/02/25 Dental Screening Dental Screen Date: 05/02/25 Did you have a dental visit in the last 12 months?: Yes Did you have a dental problem in the last 6 months where you did not have access to dental care?: No Was dental information given to patient?: Patient has dentist HPI HPI Comments History of Present Illness Details 64 y/o F with DM2 with complication, Obe sity, incomplete right bundle-branch block, bilat renal cysts, HTN, GERD, Hepatic steatosis, JANIE, MDD, chronic low back pain, peripheral neuropathy, Atherosclerosis BLE s/p dinorah, foot surgery Health Maintenance: Colon has never had one Mammo ordered today, due 05/2025 DEXA has never had one, ordered today PAP 2021 Tdap 2018 Specialists: MONY [facility], reports DM Eye exam 2023 Cards [facility] History of Present Illness, Dtr Anastasiia helps w/ language barrier. - The patient is a 64 year old female pr esenting with diabetes management issues after discontinuation of Mounjaro. - Stopped Mounjaro with no GI symptom im provement. - Blood sugars elevated; she restarted l ast week; has Endo appt scheduled next mo. - Gastrointestinal appt pending, info pr ovided today; asked she call and schedule - Constipation associated with vitamin D use; so stopped. i told her she needs to restart this. Using senna + relief of constipation. - Discontinued atorvastatin due to pain; i did not know this; did fine on the 40mg; plan to switch to fluvastatin 40mg QD . - cont w/ chronic pain, asked for pain m eds and refill on cyclobenzaprine; she was active w pssp. not sure what happened there. advised no narcotics or the like; refill cyclobenzaprine; [place] [facility] [place] [facility] Review of Systems - Gastrointestinal: Reports gastrointest inal discomfort, constipation. - Endocrine: Reports elevated blood suga r levels. - Musculoskeletal: Reports pain associat ed with atorvastatin use. - General: Denies improvement after Moun jaro discontinuation. Results reviewed 03/28/25 labs Assessment and Plan 1. Type 2 Diabetes Mellitus - Restart Mounjaro. - Fu with endo 2. Dyslipidemia - Switch to fluvastatin 40mg - Continue cholesterol management. 3. Elevated Liver Enzymes - Gastroenterology consultation pending. 4. Constipation - senna helps cont to take if canno t tolerative vitamin d, use a different form available otc. 5. Vitamin D Deficiency - Resume vitamin D supplementation. 6. Pain - refer to [facility] Patient was given time to ask questions. All questions were answered to their satisfaction. RTO 7 FOR CPE, SHE HAS SPECIALISTS FOR OTHER CONDITIONS Telehealth Attestation The documentation of this telehealth visit with the patient was completed accurately based on information obtained during the consultation conducted via telephone. The patient has been explained that this is an interactive (audio/video) telehealth encounter and what that consists of. The patient understands and wishes to proceed. [employer] platform was used. Total time spent caring for the patient today was 31 minutes. This includes time spent before the visit reviewing the chart, time spent during the visit, and time spent after the visit on documentation, reviewing laboratory results, diagnostic imaging, medications, performing a medically necessary evaluation, counseling on diagnoses, care coordination, ordering appropriate tests, ordering appropriate medications, review of tests performed by other providers, reporting test results with the patient, communication with other healthcare providers. PFSH Medical History Anxiety and depression Kidney disease GERD (gastroesophageal reflux disease) Spine disorder Back pain Arthritis Thyroid disorder Palpitations Allergies Sinusitis Asthma Tachyarrhythmia Hyperthyroidism Hypercholesteremia Hypertension Diabetes Surgical History Hx of foot surgery Hx of cholecystectomy Family History Father Diabetes HTN (hypertension) Cancer Mother Diabetes HTN (hypertension) Asthma High cholesterol Cardiovascular disease Cancer Social History Household Members: Family, None and Other Household Members Other:: Grandaughter Both parents involved: No Caregiver staying overnight: No Housing: Apartment Are you a primary rn intensive care unit to a significant other at home: No Do you presently have visiting nurse or other home services: No 75 years or older and lives alone: No Alcohol intake: former Patient Tobacco Use Status: Never used Tobacco e-Cigarette/Vaping Use: Never Used Second Hand Smoke Exposure: No Current occupational status: disabled Sexual orientation: Straight/Heterosexual Gender identity: Female Cognitive needs: No Hearing needs: No Vision needs: No Female Reproductive History Menstrual Age of Menarche: 12 Questionnaire Thrive Questionnaire Date Thrive assessed: 03/28/25 JANIE-7 AMB Questionnaire JANIE-7 Date JANIE - 7 assessed: 03/28/25 Source: Developed by Drs. Marquise Martínez, Germania Taylor, Joe Kilpatrick and colleagues, with an educational sean from [employer]. Physical exam (Primary Care) Tobacco/Smoking Status: Tobacco use Status Tobacco use date assessed 05/02/25 05/02/25 14:20 Patient Tobacco Use Status Never used Tobacco 05/02/25 14:20 e-Cigarette/Vaping Use Never Used 05/02/25 14:20 Thrive Assessment: Date of Thrive Assessment Date Thrive assessed 03/28/25 05/02/25 14:20 Telehealth Telehealth Telehealth Platform: [employer] Location of provider rendering services: practice address Location of patient: address on file Patient Identification confirmed using: Name, : Yes Telehealth method: voice only Patient verbally consented to treatment: Yes Patient verbally consented to billing insurance company: Yes Patient informed of any privacy concerns related to visit: Yes Minutes spent on Phone/Video with Pt.: 12 Coding Level of Care Code Tele Est Pt Level 4 (96854) Complex EM visit Add On G2211 Diagnoses Other chronic pain G89.29 Chronic pain type: other chronic pain Hyperlipidemia associated with type 2 diabetes mellitus E11.69; E78.5 Diabetes mellitus type 2, with complication, on nursing home insulin pump E11.8; Z96.41 Vitamin D deficiency E55.9 Hepatic steatosis K76.0 Early satiety R68.81 Assessment & Plan Assessment & Plan (1) Chronic pain: Code(s): G89.29 - Other chronic pain Category: Medical Qualifiers: Chronic pain type: other chronic pain Qualified Code(s): G89.29 - Other chronic pain (2) Hyperlipidemia associated with type 2 diabetes mellitus: Code(s): E11.69 - Type 2 diabetes mellitus with other specified complication; E78.5 - Hyperlipidemia, unspecified Category: Medical (3) Diabetes mellitus type 2, with complication, on nursing home insulin pump: Code(s): E11.8 - Type 2 diabetes mellitus with unspecified complications; Z96.41 - Presence of insulin pump (external) (internal) Category: Medical (4) Vitamin D deficiency: Code(s): E55.9 - Vitamin D deficiency, unspecified Category: Medical (5) Hepatic steatosis: Code(s): K76.0 - Fatty (change of) liver, not elsewhere classified Category: Medical (6) Early satiety: Code(s): R68.81 - Early satiety Category: Medical Plan . Orders: Referrals Pain Management Referral G89.29 - Other chronic pain Medications: New blood-glucose sensor (FreeStyle Jennifer 3 Plus Sensor device) As directed 2 ea 12RF fluvastatin 40 mg PO BEDTIME 90 caps 2RF Changed From cyclobenzaprine 10 mg PO DAILY To cyclobenzaprine 10 mg PO DAILY PRN 30 tabs 2RF muscle spasm Discontinued atorvastatin Discontinued Reason: Patient no longer taking 80 mg PO DAILY 90 tabs 2RF Resumed tirzepatide (Mounjaro) 5 mg (0.5 mL) subcut QWEEK 2 mL 1RF tirzepatide (Mounjaro) 5 mg (0.5 mL) subcut QWEEK 2 mL 0RF
--- OUTSIDE RECORDS SUMMARY | 2025-05-02 15:49 | XMS_ITS | Clinical Summary ---
Author Organization [facility] Address [address] [place] [address] Care Team Providers Care Defense Analyst Name Role Phone Meir HUA MD, Maykel [...] Team Description 02/04/2025 3:00 PM EDT Lab [facility] Lab Draw [address] [place] [address] Arthralgia of multiple sites 02/04/2025 2:00 PM EDT Office Visit [facility] [address] [place] [address] Hydraulic Lift Operator: Rosaline Ashley MD Arthralgia of multiple [...] complete this topic Procedures * Due to [place] state law, this organization might not be [...] Last 3 Months Results * Due to [place] state law, this organization might not be sharing negative HIV tests. * Cyclic Citrullinated Peptide (CCP) Antibody, IgG (02/04/2025 2:40 PM EDT) Cyclic Citrullinated Peptide (CCP) Ab (IgG) <16 UNITS 02/08/2025 12:31 PM EDT [employer] Comment: Reference Range Negative: <20 Weak Positive: 20-39 Moderate Positive: 40-59 Strong Positive: >59 Blood Structure of peripheral vein / Unknown Venipuncture / Unknown 02/04/2025 2:40 PM EDT 02/04/2025 3:45 PM EDT Narrative [facility] - 02/08/2025 12:31 PM EDT [facility] Received Date: us Rosaline Cali MD LAB BLOOD ORDERABLES Final Result [facility] [address], [place] [address], [place] [phone] [employer] [address], [place] [address], [place] [phone] * (ABNORMAL) Sedimentation Rate (02/04/2025 2:40 PM EDT) Pathologist [facility] Sed Rate 70(H) <30 mm/Hr mm/Hr 02/04/2025 4:05 PM EDT [facility] Blood Structure of peripheral vein / Unknown Venipuncture / Unknown 02/04/2025 2:40 PM EDT 02/04/2025 3:45 PM EDT us Rosaline Cali MD LAB BLOOD ORDERABLES Final Result [facility] [address] [place] [address], * Rheumatoid Factor (02/04/2025 2:40 PM EDT) Rheumatoid Factor <10 <14 IU/mL 02/04/2025 11:16 PM EDT [employer] Blood Structure of peripheral vein / Unknown Venipuncture / Unknown 02/04/2025 2:40 PM EDT 02/04/2025 3:45 PM EDT Narrative [facility] - 02/04/2025 11:16 PM EDT [facility] Received Date:[id number] Rosaline Cali MD LAB BLOOD ORDERABLES Final Result [address], [place] [address], [place] [phone] [employer] [address], [place] [address], [place] [phone] * (ABNORMAL) C-Reactive Protein (02/04/2025 2:40 PM EDT) C Reactive Protein 10.6(H) <=9.9 mg/L 02/04/2025 4:26 PM EDT [facility] Blood Structure of peripheral vein / Unknown Venipuncture / Unknown 02/04/2025 2:40 PM EDT 02/04/2025 3:45 PM EDT Rosaline Cali MD LAB BLOOD ORDERABLES Final Result [facility] [address] [place] [address], from Last [address] [id number] [employer] Advance Directives Documents on File Type Date Recorded Patient 3D Designer Expl [facility] Care Proxy 02/06/2025 9:23 PM 2024 Care Teams Defense Analyst Relationship Specialty Start Date End Date Maykel Worley III, MD [address] [place] [address] PCP - General Internal Medicine 11/25/24
--- OUTSIDE RECORDS SUMMARY | 2025-05-02 15:49 | XMS_ITS | Clinical Summary ---
Author Organization [facility] Address [address] [address] Phone Care Team Providers Care Laborer Shaft Sinking Name Role Phone Unavailable Primary Care Provider [...] patient's age to complete this topic Insurance [facility] Medicaid
--- OUTSIDE RECORDS SUMMARY | 2025-05-02 15:49 | XMS_ITS | Encounter Summary ---
Author Organization [facility] Address [address] [place] [address] Care Team Providers Care [employer] Agriculture Teacher Name Role Phone Maykel Worley MD Primary Care Provider [phone] Reason for Visit * Reason Onset Date Comments prior auth 04/22/2025 Encounter Details Date Type Department Care Team (Late st Contact Info) Description 04/22/2025 Telephone [facility] [address] [place], [place] [phone] Rosina Treviño PA [address] [place] [address] Social History Tobacco Use Types Packs/Day Years [...] as of this encounter Progress Notes * Breann De La Rosa - 04/22/2025 3:21 PM EDT Prior Authorization for Medication-do not complete and send this encounter unless you have the fax from the pharmacy. Is this a Cover My Meds request: Yes -- [place] Code [id number] Name of Medication Freestyle Jennifer 2Sensor Possible alternatives Enlite glucose sensor Guardian 4 gluecose sensor Guardian 4 Transmitter Guardian Link 3 transmitter Guardian sensor 3 MiniLink Real Time Transmitter True Metrix Meter Dose of Medication n/a What is the RX # from the faxed refill? N/a How does patient take this med? N/a What Pharmacy did the fax come from: [facility] fax #: [phone] documented in this encounter Plan of Treatment Upcoming Encounters Date Type Department Care Team (Late st Contact Info) Description 06/17/2025 11:30 AM EDT Office Visit Adult Medicine [address] [address] Maykel Worley MD [address] [place] [id number] documented as of this encounter Visit Diagnoses Not on filedocumented in this encounter Care Teams [employer] Agriculture Teacher Relationship Specialty Start Date End Date Maykel Worley MD [address] [place] [phone] PCP - General Internal Medicine 05/19/14 documented as of this encounter
--- OUTSIDE RECORDS SUMMARY | 2025-05-02 15:49 | XMS_ITS | Clinical Summary ---
Author Organization [facility] [address] [place] [address] [place] [address] [place] [address] Phone Care Team Providers Care Institutional Aide Name Role Phone Maykel Worley MD Primary Care Provider [phone] Allergies Active Allergy Reactions Criticality Noted Date [...] propionate (FLONASE) 50 mcg/actuation nasal spray 1 [place] by Each Nare route daily for 360 days. 4 Active lidocaine (ZTlido) 1.8 % adhesive patch,medicated Apply 1 Patch topically daily as needed (pain). Apply for no more than 12 hours in a 24 hour period. 4 Active flash glucose scanning reader (FreeStyle Jennifer 2 [place]) misc 1 Device by Does not apply [...] type 2 with neurological manifestations (CMS/HCC V24, [facility] V28),Type 2 diabetes mellitus with retinopathy, with long-term current use of insulin, macular edema presence unspecified, unspecified laterality, unspecified retinopathy severi* ([facility] V24, [facility] V28),Type 2 diabetes mellitus with chronic kidney disease, with long-term current use of insulin, unspecified CKD stage ([facility] V24, [facility] V28) INJECT 35 TO 45 UNITS UNDER THE SKIN THREE TIMES DAILY BEFORE MEALS DIRECTED 135 mL 1 5 Active atorvastatin (LIPITOR) 80 mg tablet TAKE ONE TABLET BY MOUTH DAILY AT BEDTIME 90 tablet 1 5 Active flash glucose sensor (FreeStyle Jennifer 2 Sensor) kitIndications:Kenzie betes mellitus type 2 with neurological manifestations ([facility] V24, [facility] V28) Change every 14 days. 6 each 1 5 Active tirzepatide (Mounjaro) 5 mg/0.5 mL injectionIndicatio ns:Diabetes mellitus type 2 with neurological manifestations ([facility] V24, [facility] V28) Inject 0.5 mL (5 mg total) under the skin every 7 (seven) days. 6 mL 1 5 Active omeprazole (PriLOSEC) [address] capsule TAKE ONE CAPSULE BY MOUTH EVERY DAY 90 capsule 1 5 Active Active Problems Problem Noted Date Diagnosed Date Arthritis of knee 11/12/2024 CKD (chronic kidney disease) stage 3, GFR 30-59 ml/min ([facility] V24, [facility] V28) 06/15/2022 Lumbar disc disease 04/26/2019 Essential hypertension 12/16/2016 Eczema 05/12/2014 Coronary artery disease invo lving [place] heart with angina pectoris ([facility] V24) 04/18/2014 Overview (06/17/2024): LHC (05/22)-70%LPDA and 60% LAD-minor progression from 2008, but not suitable for intervention. Vitamin B12 deficiency 10/21/2013 Vitamin D deficiency 10/21/2013 Diabetes mellitus type 2 wit h neurological manifestations ([facility] V24, [facility] V28) 05/18/2013 Overview (06/17/2024): Peripheral neuropathy (per office note, 04/30/12) and CTS Microalbuminuria 05/18/2013 Type 2 diabetes mellitus wit h eye manifestations ([facility] V24, [facility] V28) 05/18/2013 Overview (06/17/2024): Retinopathy per [facility] records Type II diabetes mellitus wi th renal manifestations ([facility] V24, [facility] V28) 05/18/2013 Overview (06/17/2024): Stage III CKD & microalbuminuria Venous insufficiency 05/25/2010 Anemia 10/21/2008 Carpal tunnel syndrome 06/21/2008 GERD (gastroesophageal reflux disease) 8 Anxiety 11/19/2007 Depression 10/29/2007 Ankle pain 09/30/2007 Overview (06/17/2024): H/o ORIF, after R ankle farcuture on 1989. Patient has recurrent pain with difficuties ambulating Insomnia 09/30/2007 Morbid obesity with BMI of 4 5.0-49.9, adult ([facility] V24, [facility] V28) 06/18/2007 Asthma 06/10/2007 Hyperlipidemia 06/10/2007 Hypothyroidism 06/10/2007 Encounters Date Type Department Care Team Description 04/22/2025 Telephone Endocrinology [address] [address] Rosina Treviño PA 02/02/2025 Telephone [facility] [place] [address] [place] [address] Maykel Worley MD from Last 3 Months Immunizations Name Administration [...] History Surgery Date Site/Laterality Comments CHOLECYSTECTOMY PROCEDURE: [place] LAPAROSCOPY SURG CHOLECYSTECTOMY OTHER SURGICAL HISTORY PROCEDURE: [...] 06/18/2007 D X:Essential hypertension, benign Morbid obesity ([facility] V24, [facility] V28) 06/18/2007 DX:Morbid obesity (HCC) Heart disease, unspecified 06/10/2007 DX:He art disease, unspecified Anemia 10/21/08 DX:Anemia DM (diabetes mellitus), type 2, uncontrolled, with renal complications 05/18/2013 DX:DM (diabetes mellitus), t ype 2, uncontrolled, with renal complications Hyperlipidemia 06/10/2007 DX:Hyperlipidemi a Diabetes mellitus type 2 wit h neurological manifestations ([facility] V24, [facility] V28) 05/18/2013 DX:Diabetes mellitus type 2 with neurological manifestations ([facility]); COMMENT: PMH of carpal tunnel and neuropathy. Type 2 diabetes mellitus wit h eye manifestations ([facility] V24, [facility]/HCC V28) 05/18/2013 DX:Type 2 diabetes mellitus with [...] AM EDT Office Visit Adult Medicine [address] [address] Maykel Worley MD [address] [place] [phone] Health Maintenance Due Date Last Done Comments [...] current use of insulin, unspecified CKD stage ([facility] V24, [facility] V28) HEMOGLOBIN A1C Routine 12/06/2024 12:10 PM EDT Type 2 diabetes mellitus with other diabetic kidney complication, with long-term current use of insulin ([facility] V24, [facility] V28) LIPID PANEL WITH REFLEX TO DIRECT [...] mmol/L LAB CHEMISTRY METHOD 01/08/2025 4:50 AM [facility] Potassium 3.8 3.5 - 5.5 mmol/L LAB CHEMISTRY METHOD 01/08/2025 4:50 AM [facility] Chloride 99 96 - 110 mmol/L LAB CHEMISTRY METHOD 01/08/2025 4:50 AM [facility] CO2 27 21 - 32 mmol/L LAB CHEMISTRY METHOD 01/08/2025 4:50 AM [facility] Anion Gap 8 3 - 11 LAB CHEMISTRY METHOD 01/08/2025 4:50 AM [facility] Glucose 161(H) 70 - 100 mg/dL LAB CHEMISTRY METHOD 01/08/2025 4:50 AM [facility] BUN 29(H) 5 - 25 mg/dL LAB CHEMISTRY METHOD 01/08/2025 4:50 AM [facility] Creatinine 1.46(H) 0.50 - 1.10 mg/dL LAB CHEMISTRY METHOD 01/08/2025 4:50 AM [facility] eGFR 40(L) >=60 mL/min/1. 73m2 LAB CHEMISTRY METHOD 01/08/2025 4:50 AM [facility] Comment:Calculation based on the Chronic Kidney Disease Epidemiology Collaboration (CKD-EPI) equation refit without adjustment for race. BUN/Creatinine Ratio 19.9 LAB CHEMISTRY METHOD 01/08/2025 4:50 AM [facility] Calcium 9.3 8.5 - 10.5 mg/dL LAB CHEMISTRY METHOD 01/08/2025 4:50 AM [facility] AST (SGOT) 21 10 - 42 unit/L LAB CHEMISTRY METHOD 01/08/2025 4:50 AM [facility] ALT (SGPT) 25 10 - 60 unit/L LAB CHEMISTRY METHOD 01/08/2025 4:50 AM [facility] Alkaline Phosphatase 134(H) 42 - 121 unit/L LAB CHEMISTRY METHOD 01/08/2025 4:50 AM EDT [facility] Total Protein 8.0 6.0 - 8.0 g/dL LAB CHEMISTRY METHOD 01/08/2025 4:50 AM EDT [facility] Albumin 3.8 3.2 - 5.0 g/dL LAB CHEMISTRY METHOD 01/08/2025 4:50 AM EDT [facility] Total Bilirubin 0.4 0.0 - 1.4 mg/dL LAB CHEMISTRY METHOD 01/08/2025 4:50 AM EDT [facility] Blood Venous blood specimen / Unknown Venipuncture / Unknown 01/08/2025 4:15 AM EDT 01/08/2025 4:24 AM EDT Rose LOZANO LAB BLOOD ORDERABLES Final Resul t [facility] [address] [place] [address], [place] [phone] * (ABNORMAL) Microalbumin creatinine urine ratio (12/06/2024 12:10 PM EDT) Creatinine, Urine 44.0 mg/dL LAB CHEMISTRY METHOD 12/06/2024 5:09 PM EDT [facility] Microalb, Ur 29.7(H) 0.0 - 29.0 mg/L LAB CHEMISTRY METHOD 12/06/2024 5:09 PM EDT [facility] Microalb/Crea t Ratio 68(H) <30 mg/g creat LAB CHEMISTRY METHOD 12/06/2024 5:09 PM EDT [facility] Urine Urine specimen obtained by clean catch procedure / Unknown Non-blood Collection / Unknown 12/06/2024 12:10 PM EDT 12/06/2024 12:10 PM EDT us Maykel Worley MD LAB URINE ORDERABLES Final Resu lt Performing Organization Address City/[facility]/ZIP Co de Phone Number [facility] [address] [place] [address], [place] [phone] * (ABNORMAL) Hemoglobin A1c (12/06/2024 12:10 PM EDT) Hemoglobin A1C 7.5(H) <6.5 % LAB CHEMISTRY METHOD 12/06/2024 9:28 PM EDT [facility] Mean Bld Glu Estim. 169 mg/dL LAB CHEMISTRY METHOD 12/06/2024 9:28 PM EDT [facility] Blood Venous blood specimen / Unknown Venipuncture / Unknown 12/06/2024 12:10 PM EDT 12/06/2024 12:10 PM EDT us Maykel Worley MD LAB BLOOD ORDERABLES Final Resu lt Performing Organization Address City/[facility]/ZIP Co de Phone Number [facility] [address] [place] [address], [place] [phone] * (ABNORMAL) Lipid panel with reflex to direct LDL (08/10/2024 2:34 PM EST) Cholesterol 173 0 - 200 mg/dL LAB CHEMISTRY METHOD 08/10/2024 5:04 PM EST [facility] Triglycerides 192(H) 0 - 150 mg/dL LAB CHEMISTRY METHOD 08/10/2024 5:04 PM EST [facility] HDL 43 >=40 mg/dL LAB CHEMISTRY METHOD 08/10/2024 5:04 PM EST [facility] LDL Calculated 92 0 - 100 mg/dL LAB CHEMISTRY METHOD 08/10/2024 5:04 PM EST [facility] VLDL Cholesterol Jonas 38.4 mg/dL LAB CHEMISTRY METHOD 08/10/2024 5:04 PM EST [facility] Non HDL Chol. (LDL+VLDL) 130 <145 mg/dL LAB CHEMISTRY METHOD 08/10/2024 5:04 PM EST [facility] Chol/HDL Ratio 4.0 0.0 - 4.4 LAB CHEMISTRY METHOD 08/10/2024 5:04 PM EST [facility] Blood Venous blood specimen / Unknown Venipuncture / Unknown 08/10/2024 2:34 PM EST 08/10/2024 2:35 PM EST Maykel Worley MD LAB BLOOD ORDERABLES Final Resu lt [facility] [address] [place] [address], [place] [phone] * Diabetes Eye Exam (06/15/2024) Diabetes: Annual [...] Depression Screening (01/07/2024) Depression Screening Abstracted Result [facility] Provider HEALTH MAINTENANCE Final Result * Cervical Cancer Screening: HPV (03/03/2015) Pathologist [facility] Cervical Cancer Screening: HPV Negative, Abstracted Result [facility] Provider HEALTH MAINTENANCE Final Result * Hepatitis C Screening (02/01/2014) Pathologist [facility] Hepatitis C Screening Abstracted [facility] Provider HEALTH MAINTENANCE Final Result from Last 3 Months or Most Recently Relevant to Health Maintenance Insurance DR [place]MIT[place] [facility] Care Teams Institutional Aide Relationship Specialty Start Date End Date Maykel Worley MD [address] [place], [place] [address] [address] PCP - General Internal Medicine 05/19/14
== END 2025-05-02 17:05 ==
LOC: HO.HMCFM 14:17
PROVIDERS: PCP Nurse Practitioner Family; Visit Provider Nurse Practitioner Family
DX: G89.29 Other chronic pain (principal); E11.69 Type 2 diabetes mellitus with other specified complication; E78.5 Hyperlipidemia, unspecified; E11.8 Type 2 diabetes mellitus with unspecified complications; Z96.41 Presence of insulin pump (external) (internal); E55.9 Vitamin D deficiency, unspecified; K76.0 Fatty (change of) liver, not elsewhere classified; R68.81 Early satiety

== ENCOUNTER 2025-05-13 13:29 | Outpatient (AMB) | payer OTHER, SELFPAY ==
--- NOTE | 2025-05-13 13:30 | A.OFFPC_ITS ---
Intake Visit Reasons: Fill out Paperwork Intake Note: Telehealth to fill out forms. Carpet Installer Required: No Allergies acetaminophen (From Percocet) Allergy (Severe, Verified 05/13/25 15:11) Nausea and Vomiting oxycodone (From Percocet) Allergy (Severe, Verified 05/13/25 15:11) Nausea and Vomiting tramadol Allergy (Severe, Verified 05/13/25 15:11) Nausea and Vomiting lisinopril Allergy (Unknown, Verified 05/13/25 15:11) Cough Penicillins (PENICILLINS) Allergy (Unknown, Verified 05/13/25 15:11) RASH,HIVES Penicillin Allergy (Unknown, Uncoded 05/13/25 13:31) Unknown Pt states no food allergies Allergy (Unknown, Uncoded 05/13/25 13:31) Unknown Medication List - Last Reconciled 05/13/25 by Janet Danielson, SHEET METAL TECHNICIAN- aspirin 1 tab PO DAILY blood-glucose sensor (FreeStyle Jennifer 3 Plus Sensor device) As directed carvedilol 12.5 mg PO BID cholecalciferol (vitamin D3) 50 mcg PO DAILY cyclobenzaprine 10 mg PO DAILY PRN flash glucose sensor (FreeStyle Jennifer 2 Sensor kit) As directed fluticasone propionate 50 mcg/actuation 2 sprays intranasal DAILY fluvastatin 40 mg PO BEDTIME insulin glargine U-300 conc (Toujeo Max U-300 SoloStar) units subcut insulin lispro 35 - 45 units subcut TID ipratropium-albuterol 0.5 mg-3 mg(2.5 mg base)/3 mL 1 mL PO Q8H PRN levothyroxine 75 mcg PO DAILY nitroglycerin 0.4 mg sublingual omeprazole 20 mg PO DAILY pen needle, diabetic (Unifine Pentips Plus) As directed tirzepatide (Mounjaro) 5 mg (0.5 mL) subcut QWEEK valsartan-hydrochlorothiazide 160-25 mg 1 tab PO DAILY Tobacco use date assessed: 05/02/25 Fall risk assessment: No Falls in past year Last assessed Fall Risk: 05/13/25 Dental Screening Dental Screen Date: 05/02/25 HPI HPI Comments History of Present Illness Details 64 y/o F with DM2 with complication, Obe sity, incomplete right bundle- branch block, bilat renal cysts, HTN, GERD, Hepatic steatosis, JANIE, MDD, chronic low back pain, peripheral neuropathy, Atherosclerosis BLE s/p dinorah, foot surgery Health Maintenance: Colon has never had one Mammo ordered today, due 05/2025 DEXA has never had one, ordered today PAP 2021 Tdap 2019 Specialists: [facility], reports DM Eye exam 2023 Cards [facility] pain Mgmt History of Present Illness - The patient is a 64 year old female pr esenting to complete Disability V erification - Requires a grab bar in the shower. - Needs accommodation in a first-floor a partment due to mobility issues. Currently lives in 2 floor apt, sleeping in living room as she cannot climb stairs. - Seeks physician documentation for hous ing accommodation. Review of Systems - Musculoskeletal: Reports difficulty wi th stairs. Physical Exam Limited physical exam was conducted Awake alert NAD Speaking in full sentences Engaging, appropriate Assessment and Plan 1. Mobility issues requiring accommodati on - Support accommodation for first-floor living. 2. Need for shower safety modification - Endorse grab bar installation for safe ty. Form completed; however noted only first page was given to me and not 2nd page. Will have the staff get the 2nd page of the forms to complete. Pt asked these then be faxed over to Erika Mccoy and originals returned to the patient. Patient was given time to ask questions. All questions were answered to their satisfaction. Telehealth Attestation This documentation is accurate and complete as per the telehealth visit conducted by phone. The patient has been explained that this is an interactive (audio/video) telehealth encounter and what that consists of. The patient understands and wishes to proceed. [employer] platform was used. Total time spent caring for the patient today was 15 minutes. This includes time spent before the visit reviewing the chart, time spent during the visit, and time spent after the visit on documentation, reviewing laboratory results, diagnostic imaging, medications, performing a medically necessary evaluation, counseling on diagnoses, care coordination, ordering appropriate tests, ordering appropriate medications, review of tests performed by other providers, reporting test results with the patient, communication with other healthcare providers. [facility] Medical History Anxiety and depression Kidney disease GERD (gastroesophageal reflux disease) Spine disorder Back pain Arthritis Thyroid disorder Palpitations Allergies Sinusitis Asthma Tachyarrhythmia Hyperthyroidism Hypercholesteremia Hypertension Diabetes Surgical History Hx of foot surgery Hx of cholecystectomy Family History Father Diabetes HTN (hypertension) Cancer Mother Diabetes HTN (hypertension) Asthma High cholesterol Cardiovascular disease Cancer Social History Household Members: Family, None and Other Household Members Other:: Grandaughter Both parents involved: No Caregiver staying overnight: No Housing: Apartment Are you a primary youth care specialist to a significant other at home: No Do you presently have visiting nurse or other home services: No 75 years or older and lives alone: No Alcohol intake: former Patient Tobacco Use Status: Never used Tobacco e-Cigarette/Vaping Use: Never Used Second Hand Smoke Exposure: No Current occupational status: disabled Sexual orientation: Straight/Heterosexual Gender identity: Female Cognitive needs: No Hearing needs: No Vision needs: No Female Reproductive History Menstrual Age of Menarche: 12 Questionnaire Thrive Questionnaire Date Thrive assessed: 03/28/25 JANIE-7 AMB Questionnaire JANIE-7 Date JANIE - 7 assessed: 03/28/25 Source: Developed by Drs. Marquise Martínez, Germania Taylor, Joe Kilpatrick and colleagues, with an educational sean from [employer]. Physical exam (Primary Care) Tobacco/Smoking Status: Tobacco use Status Tobacco use date assessed 05/02/25 05/13/25 13:31 Patient Tobacco Use Status Never used Tobacco 05/13/25 13:31 e-Cigarette/Vaping Use Never Used 05/13/25 13:31 Thrive Assessment: Date of Thrive Assessment Date Thrive assessed 03/28/25 05/13/25 13:31 Telehealth Telehealth Telehealth Platform: [facility] Location of provider rendering services: practice address Location of patient: address on file Patient Identification confirmed using: Name, : Yes Telehealth method: voice only Patient verbally consented to treatment: Yes Patient verbally consented to billing insurance company: Yes Patient informed of any privacy concerns related to visit: Yes Minutes spent on Phone/Video with Pt.: 5 Coding Level of Care Code Tele Est Pt Level 2 (72836) Complex EM visit Add On G2211 Diagnoses Encounters for administrative purpose Z02.9 Atherosclerosis of belkofski artery of right lower extremity with ulceration of other part of foot I70.235 Peripheral atherosclerosis location: lower extremity Peripheral atherosclerosis artery type: belkofski artery Laterality: right Lower extremity ulceration location: other part of foot Obesity, morbid, BMI 40.0-49.9 E66.01 Weakness of both lower extremities R29.898 Laterality: bilateral Diabetic mononeuropathy associated with type 2 diabetes mellitus E11.41 Diabetes mellitus type: type 2 Diabetes mellitus complication detail: diabetic mononeuropathy Assessment & Plan Assessment & Plan (1) Encounters for administrative purpose: Code(s): Z02.9 - Encounter for administrative examinations, unspecified (2) Atherosclerosis of extremity with ulceration: Code(s): I70.209 - Unspecified atherosclerosis of belkofski arteries of extremities, unspecified extremity; L98.499 - Non-pressure chronic ulcer of skin of other sites with unspecified severity Category: Medical Qualifiers: Peripheral atherosclerosis location: lower extremity Peripheral atherosclerosis artery type: belkofski artery Laterality: right Lower extremity ulceration location: other part of foot Qualified Code(s): I70.235 - Atherosclerosis of belkofski arteries of right leg with ulceration of other part of foot (3) Obesity, morbid, BMI 40.0-49.9: Code(s): E66.01 - Morbid (severe) obesity due to excess calories Category: Medical (4) Lower extremity weakness: Comment: managed by [facility] states imaging ordered and pending Code(s): R29.898 - Other symptoms and signs involving the musculoskeletal system Category: Medical Qualifiers: Laterality: bilateral Qualified Code(s): R29.898 - Other symptoms and signs involving the musculoskeletal system (5) Diabetic neuropathy: Code(s): E11.40 - Type 2 diabetes mellitus with diabetic neuropathy, unspecified Category: Medical Qualifiers: Diabetes mellitus type: type 2 Diabetes mellitus complication detail: diabetic mononeuropathy Qualified Code(s): E11.41 - Type 2 diabetes mellitus with diabetic mononeuropathy Plan .
--- OUTSIDE RECORDS SUMMARY | 2025-05-13 13:46 | XMS_ITS | Clinical Summary ---
Author Organization [facility] [address] [place] [address] [place] [address] [place] [address] Phone Care Team Providers Care Field Horticultural Specialty Grower Name Role Phone Maykel Worley MD Primary Care Provider [phone] Allergies Active Allergy Reactions Criticality Noted Date [...] propionate (FLONASE) 50 mcg/actuation nasal spray 1 [place] by Each Nare route daily for 360 days. 4 Active lidocaine (ZTlido) 1.8 % adhesive patch,medicated Apply 1 Patch topically daily as needed (pain). Apply for no more than 12 hours in a 24 hour period. 4 Active flash glucose scanning reader (FreeStyle Jennifer 2 Parker) misc 1 Device by Does not apply [...] type 2 with neurological manifestations (CMS/HCC V24, [facility] V28),Type 2 diabetes mellitus with retinopathy, with long-term current use of insulin, macular edema presence unspecified, unspecified laterality, unspecified retinopathy severi* ([facility] V24, [facility] V28),Type 2 diabetes mellitus with chronic kidney disease, with long-term current use of insulin, unspecified CKD stage ([facility] V24, [facility] V28) INJECT 35 TO 45 UNITS UNDER THE SKIN THREE TIMES DAILY BEFORE MEALS DIRECTED 135 mL 1 5 Active atorvastatin (LIPITOR) 80 mg tablet TAKE ONE TABLET BY MOUTH DAILY AT BEDTIME 90 tablet 1 5 Active flash glucose sensor (FreeStyle Jennifer 2 Sensor) kitIndications:Kenzie betes mellitus type 2 with neurological manifestations ([facility] V24, [facility] V28) Change every 14 days. 6 each 1 5 Active tirzepatide (Mounjaro) 5 mg/0.5 mL injectionIndicatio ns:Diabetes mellitus type 2 with neurological manifestations ([facility] V24, [facility] V28) Inject 0.5 mL (5 mg total) under the skin every 7 (seven) days. 6 mL 1 5 Active omeprazole (PriLOSEC) [address] capsule TAKE ONE CAPSULE BY MOUTH EVERY DAY 90 capsule 1 5 Active Active Problems Problem Noted Date Diagnosed Date Arthritis of knee 11/12/2024 CKD (chronic kidney disease) stage 3, GFR 30-59 ml/min ([facility] V24, 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 V24) 04/18/2014 Overview (06/17/2024): LHC (05/22)-70%LPDA and 60% LAD-minor progression from 2008, but not suitable for intervention. Vitamin B12 deficiency 10/21/2013 Vitamin D deficiency 10/21/2013 Diabetes mellitus type 2 wit h neurological manifestations ([facility] V24, [facility] V28) 05/18/2013 Overview (06/17/2024): Peripheral neuropathy (per office note, 04/30/12) and CTS Microalbuminuria 05/18/2013 Type 2 diabetes mellitus wit h eye manifestations ([facility] V24, [facility] V28) 05/18/2013 Overview (06/17/2024): Retinopathy per [facility] records Type II diabetes mellitus wi th renal manifestations ([facility] V24, [facility] V28) 05/18/2013 Overview (06/17/2024): Stage III CKD & microalbuminuria Venous insufficiency 05/25/2010 Anemia 10/21/2008 Carpal tunnel syndrome 06/21/2008 GERD (gastroesophageal reflux disease) 8 Anxiety 11/19/2007 Depression 10/29/2007 Ankle pain 09/30/2007 Overview (06/17/2024): H/o ORIF, after R ankle farcuture on 1989. Patient has recurrent pain with difficuties ambulating Insomnia 09/30/2007 Morbid obesity with BMI of 4 5.0-49.9, adult ([facility] V24, [facility] V28) 06/18/2007 Asthma 06/10/2007 Hyperlipidemia 06/10/2007 Hypothyroidism 06/10/2007 Encounters Date Type Department Care Team Description 04/22/[address] [address] Rosina Treviño PA from Last 3 Months Immunizations Name Administration [...] History Surgery Date Site/Laterality Comments CHOLECYSTECTOMY PROCEDURE: [place] LAPAROSCOPY SURG CHOLECYSTECTOMY OTHER SURGICAL HISTORY PROCEDURE: [...] 06/18/2007 D X:Essential hypertension, benign Morbid obesity ([facility] V24, [facility] V28) 06/18/2007 DX:Morbid obesity (HCC) Heart disease, unspecified 06/10/2007 DX:He art disease, unspecified Anemia 10/21/08 DX:Anemia DM (diabetes mellitus), type 2, uncontrolled, with renal complications 05/18/2013 DX:DM (diabetes mellitus), t ype 2, uncontrolled, with renal complications Hyperlipidemia 06/10/2007 DX:Hyperlipidemi a Diabetes mellitus type 2 wit h neurological manifestations ([facility] V24, [facility] V28) 05/18/2013 DX:Diabetes mellitus type 2 with neurological manifestations (HCC); COMMENT: PMH of carpal tunnel and neuropathy. Type 2 diabetes mellitus wit h eye manifestations ([facility] V24, [facility] V28) 05/18/2013 DX:Type 2 diabetes mellitus with [...] 11:30 AM EDT Office Visit Adult Medicine [address] [phone] Maykel Worley MD [address] [place] [address] Health Maintenance Due Date Last Done Comments Diabetes: Annual Foot Exam 1970 Zoster Vaccines (1 of 2) 11/15/1979 Pneumococcal Vaccine: 50+ Years (2 of 2 - PCV) 06/29/2008 06/29/2007 Cervical Cancer Screening: Pap Smear 03/03/2018 03/03/2015, 03/03/2015 RSV Immunization Adult Patients (1 - Risk 60-74 years 1-dose series) 2020 Colorectal Cancer Screening: Colonoscopy 08/17/2022 HIV Screening 08/17/2022 Social Influencers of Health Screening 08/17/2022 Depression Screening 09/08/2024 01/07/2024 COVID-19 Vaccine ( season) 2025 05/06/2022, 01/20/2021, 12/30/2020 Influenza Vaccine (#1) 2025 , 06/30/2020, 08/12/2019, [...] Additional history exists Breast Cancer Screening 03/30/2026 03/30/20, 03/30/2024, 03/20/2023, Additional history exists Cholesterol Screening [...] current use of insulin, unspecified CKD stage ([facility] V24, [facility] V28) HEMOGLOBIN A1C Routine 12/06/2024 12:10 PM EDT Type 2 diabetes mellitus with other diabetic kidney complication, with long-term current use of insulin ([facility] V24, [facility] V28) LIPID PANEL WITH REFLEX TO DIRECT [...] mmol/L LAB CHEMISTRY METHOD 01/08/2025 4:50 AM EDT [facility] Potassium 3.8 3.5 - 5.5 mmol/L LAB CHEMISTRY METHOD 01/08/2025 4:[address] [facility] Chloride 99 96 - 110 mmol/L LAB CHEMISTRY METHOD 01/08/2025 4:[address] [facility] CO2 27 21 - 32 mmol/L LAB CHEMISTRY METHOD 01/08/2025 4:[address] [facility] Anion Gap 8 3 - 11 LAB CHEMISTRY METHOD 01/08/2025 4:[address] [facility] Glucose 161(H) 70 - 100 mg/dL LAB CHEMISTRY METHOD 01/08/2025 4:[address] [facility] BUN 29(H) 5 - 25 mg/dL LAB CHEMISTRY METHOD 01/08/2025 4:[address] [facility] Creatinine 1.46(H) 0.50 - 1.10 mg/dL LAB CHEMISTRY METHOD 01/08/2025 4:[address] [facility] eGFR 40(L) >=60 mL/min/1. 73m2 LAB CHEMISTRY METHOD 01/08/2025 4:[address] [facility] Comment:Calculation based on the Chronic Kidney Disease Epidemiology Collaboration (CKD-EPI) equation refit without adjustment for race. BUN/Creatinine Ratio 19.9 LAB CHEMISTRY METHOD 01/08/2025 4:[address] [facility] Calcium 9.3 8.5 - 10.5 mg/dL LAB CHEMISTRY METHOD 01/08/2025 4:[address] [facility] AST (SGOT) 21 10 - 42 unit/L LAB CHEMISTRY METHOD 01/08/2025 4:[address] [facility] ALT (SGPT) 25 10 - 60 unit/L LAB CHEMISTRY METHOD 01/08/2025 4:[address] [facility] Alkaline Phosphatase 134(H) 42 - 121 unit/L LAB CHEMISTRY METHOD 01/08/2025 4:[address] [facility] Total Protein 8.0 6.0 - [...] LOZANO LAB BLOOD ORDERABLES Final Resul t Performing Organization Address [facility] de Phone Number [facility] [address] [place] [address], * (ABNORMAL) Microalbumin creatinine urine ratio (12/06/2024 [...] 12:10 PM EDT 12/06/2024 12:10 PM EDT aMykel Worley MD LAB URINE ORDERABLES Final Resu lt Performing Organization Address [facility]/ZIP Co de Phone Number [facility] [address] [place] [address], [place] [phone] * (ABNORMAL) Hemoglobin A1c (12/06/2024 12:10 PM EDT) Pathologist [facility] Hemoglobin A1C 7.5(H) <6.5 % LAB CHEMISTRY [...] lt [facility] [address] [place] [address], [place] [phone] * (ABNORMAL) Lipid panel with reflex to direct LDL (08/10/2024 2:34 PM EST) [facility] Cholesterol 173 0 - 200 mg/dL LAB CHEMISTRY METHOD 08/10/2024 5:04 PM [facility] Triglycerides 192(H) 0 - 150 mg/dL LAB CHEMISTRY METHOD 08/10/2024 5:04 PM [facility] HDL 43 >=40 mg/dL LAB CHEMISTRY METHOD 08/10/2024 5:04 PM [facility] LDL Calculated 92 0 - 100 mg/dL LAB CHEMISTRY METHOD 08/10/2024 5:04 PM [facility] VLDL Cholesterol Jonas 38.4 mg/dL LAB CHEMISTRY METHOD 08/10/2024 5:04 PM [facility] Non HDL Chol. (LDL+VLDL) 130 <145 mg/dL LAB CHEMISTRY METHOD 08/10/2024 5:04 PM [facility] Chol/HDL Ratio 4.0 0.0 - 4.4 LAB CHEMISTRY METHOD 08/10/2024 5:04 PM EST [facility] Blood Venous blood specimen / Unknown Venipuncture / Unknown 08/10/2024 2:34 PM EST 08/10/2024 2:35 PM EST Maykel Worley MD LAB BLOOD ORDERABLES Final Resu lt [facility] [address] [place] [address], * Diabetes Eye Exam (06/15/2024) Diabetes: Annual [...] Breast cancer risk category Low (<15%) Result [facility] Maykel Worley MD IMG XR PROCEDURES Final Result * Depression Screening (01/07/2024) Depression Screening Abstracted Result [facility] Historical Provider HEALTH MAINTENANCE Final Result * Cervical Cancer Screening: HPV (03/03/2015) Pathologist [facility] Cervical Cancer Screening: HPV Negative, Abstracted Result [facility] Provider HEALTH MAINTENANCE Final Result * Hepatitis C Screening (02/01/2014) Pathologist [facility] Hepatitis C Screening Abstracted Result [facility] HEALTH MAINTENANCE Final Result from Last 3 Months or Most Recently Relevant to Health Maintenance Insurance [address] [place] [facility] Care Teams Field Horticultural Specialty Grower Relationship Specialty Start Date End Date Maykel Worley MD [address] [place], [place] [address] PCP - General Internal Medicine 05/19/14
--- OUTSIDE RECORDS SUMMARY | 2025-05-13 13:46 | XMS_ITS | Clinical Summary ---
Author Organization [facility] Address [address] [address] Phone Care Team Providers Care Commissary Production Supervisor Name Role Phone Unavailable Primary Care Provider [...] patient's age to complete this topic Insurance [facility] Medicaid
--- OUTSIDE RECORDS SUMMARY | 2025-05-13 13:46 | XMS_ITS | Encounter Summary ---
Author Organization [facility] Address [address] [place] [address] Care Team Providers Care Para Educator Name Role Phone Maykel Worley MD Primary Care Provider [phone] Reason for Visit * Reason Onset Date Comments prior auth 04/22/2025 Encounter Details Date Type Department Care Team (Late st Contact Info) Description 04/22/2025 Telephone [facility] [address] [place], [place] [phone] Rosina Treviño PA [address] [place] [address] Social History Tobacco Use Types Packs/Day Years [...] from: [facility] fax #: [phone] documented in this encounter Plan of Treatment Upcoming Encounters Date Type Department Care Team (Late st Contact Info) Description 06/17/2025 11:30 AM EDT Office Visit Adult Medicine [address] [phone] Maykel Worley MD [address] [place] [address] documented as of this encounter Visit Diagnoses Not on filedocumented in this encounter Care Teams Para Educator Relationship Specialty Start Date End Date Maykel Worlye MD [address] [place] [address] PCP - General Internal Medicine 05/19/14 documented as of this encounter
--- OUTSIDE RECORDS SUMMARY | 2025-05-13 13:46 | XMS_ITS | Clinical Summary ---
Author Organization [facility] Address [address] [place] [address] Care Team Providers Care Histology Manager Name Role Phone Meir HUA MD, Maykel [...] - Risk 60-74 years 1-dose series) 2020 Alcohol/Substance Use Screening 09/08/2024 Depression Screening and Follow-Up 09/08/2024 Social Drivers of Health Annual Screening 09/08/2024 COVID-19 Vaccine ( season) 2025 05/06/2022, 01/20/2021, 12/30/2020 Influenza Vaccine (#1) 2025 , 06/30/2020, 08/12/2019, Additional history exists Colon Cancer Screening 12/06/2025 FOBT / Fit Test 12/06/2025 12/06/2024 Diabetes Screening 01/09/2028 01/08/2025, 08/10/2024 DTaP,Tdap,and Td Vaccines (3 - Td or Tdap) 08/12/2029 08/12/2019, 11/19/2007 Hepatitis B Vaccines Aged Out No long er eligible based on patient's age to complete this topic Insurance [employer] Advance Directives Documents on File Type Date Recorded Patient Pressing Machine Tender Expl anation Health Care Proxy 02/06/2025 9:23 PM 2024 Care Teams Histology Manager Relationship Specialty Start Date End Date Maykel Worley III, MD [address] [place] [address] PCP - General Internal Medicine 11/25/24
== END 2025-05-13 15:14 | disposition home or self-care (01) ==
LOC: HO.HMCFM 13:30
PROVIDERS: PCP Nurse Practitioner Family; Visit Provider Nurse Practitioner Family
DX: I70.235 Atherosclerosis of native arteries of right leg with ulceration of other part of foot (principal); E66.01 Morbid (severe) obesity due to excess calories; E11.41 Type 2 diabetes mellitus with diabetic mononeuropathy; R29.898 Other symptoms and signs involving the musculoskeletal system

== ENCOUNTER 2025-05-30 13:30 | Outpatient (AMB) | payer OTHER, SELFPAY ==
[2025-05-30 13:31] VITALS: BP 106/58; PULSE 91; O2SAT 95; BMI 47.3
--- NOTE | 2025-05-30 13:31 | MHC.OFFVIS ---
Vital Signs 05/30/25 13:31 Height 5 ft 2 in Weight 258 lb 6.108 oz BMI 47.3 BP 106/58 L Blood Pressure Location Rt brachial Position Sitting Pulse 91 Pulse Source Pulse Oximeter Pulse Oximetry (%) 95 Oxygen Delivery Method Room Air Intake Visit Reasons: Type 2 diabetes mellitus with unspecified complica Intake Note: New patient present today for Type 2 Diabetes Mellitus Last Diabetic eye exam: 10/2024 Last Podiatry Visit: 05/2025 Random Glucose: 121 mg/dl HgA1C: 7.5% 03/28/25 [employer] Required: Yes [employer] Language: Juice Mixer Services: [employer] Offered & Declined Accompanied by: Daughter and grandchild Allergies acetaminophen (From Percocet) Allergy (Severe, Verified 05/30/25 13:39) Nausea and Vomiting oxycodone (From Percocet) Allergy (Severe, Verified 05/30/25 13:39) Nausea and Vomiting tramadol Allergy (Severe, Verified 05/30/25 13:39) Nausea and Vomiting lisinopril Allergy (Unknown, Verified 05/30/25 13:39) Cough Penicillins (PENICILLINS) Allergy (Unknown, Verified 05/30/25 13:39) RASH,HIVES Penicillin Allergy (Unknown, Uncoded 05/30/25 13:39) Unknown Pt states no food allergies Allergy (Unknown, Uncoded 05/30/25 13:39) Unknown Medication List - Last Reconciled 05/30/25 by Michelle Anthony MD aspirin 1 tab PO DAILY blood-glucose sensor (FreeStyle Jennifer 3 Plus Sensor device) As directed carvedilol 12.5 mg PO BID cholecalciferol (vitamin D3) 50 mcg PO DAILY cyclobenzaprine 10 mg PO DAILY PRN flash glucose sensor (FreeStyle Jennifer 2 Sensor kit) As directed fluticasone propionate 50 mcg/actuation 2 sprays intranasal DAILY fluvastatin 40 mg PO BEDTIME insulin glargine U-300 conc (Toujeo Max U-300 SoloStar) units subcut insulin lispro 35 - 45 units subcut TID ipratropium-albuterol 0.5 mg-3 mg(2.5 mg base)/3 mL 1 mL PO Q8H PRN levothyroxine 75 mcg PO DAILY nitroglycerin 0.4 mg sublingual omeprazole 20 mg PO DAILY pen needle, diabetic (Unifine Pentips Plus) As directed tirzepatide (Mounjaro) 5 mg (0.5 mL) subcut QWEEK trazodone 50 mg PO BEDTIME valsartan-hydrochlorothiazide 160-25 mg 1 tab PO DAILY HPI Comments Details: 64-year-old female coming in today for initial evaluation of type 2 diabetes mellitus. Here today with daughter and grand daughter. daughter is doing interpretation History of diabetes Type 2 DM diagnosed in her 30s Was found to have gestational diabetes that then developed into type 2 DM She has been on insulin from the very beginning Was following with Dr. Allie Perez , in [place] previously , saw him DecemberJanuary 2025 last , switching care due to insurance issues A1c 7.5% 03/28/2025. Prior therapy: Trulicity was ineffective, failure to lose weight metformin Gi intolerance with severe diarrhea Current regimen: insulin lantus AM 80 units insulin humalog tID premeals 35 -45 units >200 45 units <200 35 units Mounjaro 5 mg weekly Tuesdays (started 2023) symptoms of hyperglycemia : polyuria, polydipsia. Denies any hypoglycemic symptoms. No severe hypoglycemic event treats lows with 4 oz of juice feels sx in 60s Random Glucose: 121 mg/dl Vaccines:interested in getting flu vaccine Complications has retinopathy and macular edeme, has had avastin injections in past, Eye exam: Last eye exam was 10/2024 Last Podiatry Visit: 05/2025 Neuropathy: does have numbness Kidney disease: CKD stage 3 , egfr March, doesnt see nephro Macrovascular complications: No history of macrovascular complications. Statin: Fluvastatin 40 mg daily, LDL 60 mg/dl March 2025, switched from atorvastatin due to abd pain?? per patient JOI/ARB: Valsartan 160 mg daily Exercise: cant walk anymore?? early in 2024 went to ED and has been in PT after and walker and wheelchair Diet control: 2-3 meals a day. He has never had any hospitalizations for hyperglycemia/hypoglycemia. Physical exam General: sitting comfortably in no acute distress HEENT: normocephalic/atraumatic, Cardiac: normal heart sounds Pulm: normal breath sounds B/L, no added breath sounds Abd: not distended Laboratory Tests 03/28/25 03/28/25 10:19 11:10 Hgb 12.8 Hct 38.4 Plt Count 344 Creatinine 1.18 Estimated GFR 46 Random Glucose 172 H Hgb A1c (Clinic) 7.5 H AST 29 ALT 34 H Triglycerides 395 H Cholesterol 172 LDL Cholesterol, Calc 60 HDL Cholesterol 33 L Vitamin B12 350 TSH 1.48 Urine Creatinine 56.63 Urine Microalbumin 7.0 Microalb/Creat Ratio 12.3 PFSH Medical History (Updated 05/30/25 @ 14:21 by Michelle Anthony MD) Dyslipidemia associated with type 2 diabetes mellitus Type 2 diabetes mellitus Anxiety and depression Kidney disease GERD (gastroesophageal reflux disease) Spine disorder Back pain Arthritis Thyroid disorder Palpitations Allergies Sinusitis Asthma Tachyarrhythmia Hyperthyroidism Hypercholesteremia Hypertension Diabetes Surgical History Hx of foot surgery Hx of cholecystectomy Family History Father Diabetes HTN (hypertension) Cancer Mother Diabetes HTN (hypertension) Asthma High cholesterol Cardiovascular disease Cancer Social History Household Members: Family, None and Other Household Members Other:: Grandaughter Both parents involved: No Caregiver staying overnight: No Housing: Apartment Are you a primary child care assistant to a significant other at home: No Do you presently have visiting nurse or other home services: No 75 years or older and lives alone: No Alcohol intake: former Patient Tobacco Use Status: Never used Tobacco e-Cigarette/Vaping Use: Never Used Second Hand Smoke Exposure: No Current occupational status: disabled Sexual orientation: Straight/Heterosexual Gender identity: Female Cognitive needs: No Hearing needs: No Vision needs: No Female Reproductive History Menstrual Age of Menarche: 12 Office Procedures Glucose Monitoring Details Details: See HPI 67170 - Glucose monitoring, continuous-physician I&R Procedure code (CPT) selection complete Assessment & Plan Assessment & Plan (1) Type 2 diabetes mellitus: Code(s): E11.9 - Type 2 diabetes mellitus without complications Category: Medical Qualifiers: Diabetes mellitus bed bug exterminator insulin use: with bed bug exterminator use Diabetes mellitus complication status: with ophthalmic complications Diabetes mellitus complication detail: with diabetic retinopathy Diabetic retinopathy severity: with mild nonproliferative retinopathy Diabetes mellitus macular edema: with macular edema Laterality: unspecified laterality Qualified Code(s): E11.3218 - Type 2 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, unspecified eye; Z79.4 - computer terminal operator (current) use of insulin Plan: 64-year-old female coming in today to establish care for type 2 diabetes mellitus with long-term insulin use with complications of retinopathy, CKD stage 3, neuropathy with long-term insulin use currently on insulin basal bolus regimen plus Mounjaro. A1c from March 2025 at 7.5%. Freestyle Jennifer 2 data downloaded which shows that she is having overnight hyperglycemia along with the postprandial hyperglycemia mostly after dinner. I will go up on her Mounjaro. Plan: -ordered freestyle Jennifer 3 4 upgrade, given pamphlet to connect to set up -increase Mounjaro to 7.5 mg weekly -continue Lantus 80 units daily -continue Humalog, however I am making her dose for now more consistent to be 35 units t.i.d. pre meals -hypoglycemia education done (2) Dyslipidemia associated with type 2 diabetes mellitus: Code(s): E11.69 - Type 2 diabetes mellitus with other specified complication; E78.5 - Hyperlipidemia, unspecified Category: Medical Plan: Fluvastatin 40 mg daily, LDL 60 mg/dl March 2025, switched from atorvastatin due to abd pain?? per patient Plan: -continue lovastatin 40 mg daily - Plan I spent 60 minutes in reviewing the record, seeing the patient and documenting in the medical record. 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, unspecified eye, Z79.4 - [facility] (current) use of insulin blood-glucose meter (OneTouch Verio Flex Meter) As directed to check blood sugars 3 times daily in case of sensor failure 1 ea 0RF E11.3218 - Type 2 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, unspecified eye, Z79.4 - [facility] (current) use of insulin blood sugar diagnostic (OneTouch Verio test strips) As directed to check blood sugars 3 times daily in case of sensor failure 100 ea 3RF E11.3219 - Type 2 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, unspecified eye, Z79.4 - computer terminal operator (current) use of insulin Changed From blood-glucose sensor (FreeStyle Jennifer 3 Plus Sensor device) As directed 2 ea 12RF E11.3219 - Type 2 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, unspecified eye, Z79.4 - computer terminal operator (current) use of insulin To blood-glucose sensor (FreeStyle Jennifer 3 Plus Sensor device) As directed every 15 days 2 ea 12RF E11.3219 - Type 2 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 Rest for 15 minutes Re-check your blood glucose. If it is still low, (below 70), repeat step 1 above. ? If your next meal is more than an hour away, you will need to eat one carbohydrate choice as a snack to keep your blood glucose from going low again. ?If you can't figure out why you have low blood glucose, call your healthcare provider, as your medicine may need to be adjusted. ?Always carry something with you to treat an insulin reaction. Use food from the list below. ? Foods equal to One Carbohydrate Choice (15 grams of carbohydrate): 3 Glucose ?tablets or 4 Dextrose tablets 4 ounces of fruit juice 5-6 ounces (about 1/2 can) of regular soda such as Coke or Pepsi ? 7-8 gummy or regular Life Savers ? 1 Tbsp. of sugar or jelly NOTE: If your blood sugar is less than 50, double the portion above for a total of 30 gm. ?Carbohydrate. ? Follow meal plan of 45-60 g of consistent carbohydrates at 3 meals each day and 15 g of carbohydrate at 1-2 snacks each day. Coding Level of Care Code New Pt Level 5 (20131) Diagnoses Type 2 diabetes mellitus with mild nonproliferative retinopathy and macular edema, with long-term current use of insulin, unspecified laterality E11.3219; Z79.4 Diabetes mellitus bed bug exterminator insulin use: with [facility] use Diabetes mellitus complication status: with ophthalmic complications Diabetes mellitus complication detail: with diabetic retinopathy Diabetic retinopathy severity: with mild nonproliferative retinopathy Diabetes mellitus macular edema: with macular edema Laterality: unspecified laterality Dyslipidemia associated with type 2 diabetes mellitus E11.69; E78.5 CPT Codes Details - CPT: 79749 - Glucose monitoring, continuous-physician I&R ([id number]) Time Spent (min) 60
[2025-05-30 13:46] LABS: Glucose, Whole Blood 121 mg/dL (60-115)
--- OUTSIDE RECORDS SUMMARY | 2025-05-30 15:53 | XMS_ITS | Clinical Summary ---
Demographics
--- OUTSIDE RECORDS SUMMARY | 2025-05-30 15:53 | XMS_ITS | Encounter Summary ---
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
--- OUTSIDE RECORDS SUMMARY | 2025-05-30 15:54 | XMS_ITS ---
Encounter Summary Created on: May 30, 2025 Ginny Sears
== END 2025-05-30 14:20 | disposition home or self-care (01) ==
LOC: HO.ENCR 13:30
PROVIDERS: PCP Nurse Practitioner Family; Visit Provider Student in an Organized Health Care Education/Training Program
DX: E11.3219 Type 2 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, unspecified eye (principal); Z79.4 Long term (current) use of insulin; E11.69 Type 2 diabetes mellitus with other specified complication; E78.5 Hyperlipidemia, unspecified
CPT/HCPCS: 95251; 99205

== ENCOUNTER → 2025-05-30 13:30 | Outpatient (BNVA) | payer OTHER, SELFPAY | PROVIDERS: PCP Nurse Practitioner Family; Visit Provider Student in an Organized Health Care Education/Training Program | DX: E11.9 Type 2 diabetes mellitus without complications (principal); E78.5 Hyperlipidemia, unspecified | CPT/HCPCS: 82947; 99202 ==